=== PATIENT | male | born 1960 | race Caucasian/White ===

== ENCOUNTER → 2017-05-24 14:44 | Outpatient (CLI) | payer BC, SELFPAY ==
[2017-05-24 17:58] LABS: Absolute Lymphocyte Count 1.77 X10^3/ul (0.83-4.51); Basophil# 0.02 X10^3/uL; Basophil% 0.2 % (0-1); Eosinophil# 0.05 X10^3/uL; Eosinophils% 0.6 % (0-5); Hematocrit 41.7 % (40-54); Hemoglobin 13.8 g/dl (13.0-16.5); Lymphocyte # 1.77 X10^3/ul (4.0); Lymphocyte % 21.1 % (19-41); Mean Corp Hgb Conc 33.1 g/gl (32-36); Mean Corpuscular Hgb 29.4 pg (27.0-32.0); Mean Corpuscular Volume 88.7 fL (80-94); Mean Platelet Vol. 10.9 fl (6.2-12.0); Monocyte# 0.52 X10^3/uL; Monocyte% 6.2 % (0-10); Neutrophil # 6.02 X10^3/uL (2.7-7.7); Neutrophil % 71.8 % (47-70); Platelet Count 192 K/mm3 (150-450); RBC Distribution Width SD 45.5 fl (35.1-43.9); White Blood Count 8.4 K/mm3 (4.4-11.0)
[2017-05-24 18:17] LABS: POSITIVE COUNT NO; POSITIVE DIFFERENTIAL NO; POSITIVE MORPHOLOGY NO
[2017-05-24 18:58] LABS: Anion Gap 10 (5-15); BUN 21 mg/dL (7-18); BUN/Creat Ratio 19.1 RATIO (10-20); Chloride 107 mmol/L (98-107); EST Glomerular Filtration Rate 73 mL/min (>60); Est Glom Filt Rate - Afr Amer 89 mL/min (>60); Free T3 2.6 pg/mL (2.18-3.98); Glucose 88 mg/dL (74-106); Potassium 3.7 mmol/L (3.5-5.1); Sodium Level 141 mmol/L (136-145); Thyroid Stim Hormone (TSH) 1.92 uIU/mL (0.358-3.74)
[2017-06-02 14:07] LABS: 5-HIAA, UR 0.3 mg/L (Undefined); Metanephrine, Ur 30 ug/L (Undefined); Normetanephrines, Ur 55 ug/L (Undefined)
== END ==
PROVIDERS: Family Provider Family Medicine; PCP Family Medicine; Visit Provider Family Medicine
DX: I10 Essential (primary) hypertension (principal)
CPT/HCPCS: 36415; 80048; 82533; 83497; 83835; 84443; 84481; 85025

== ENCOUNTER 2018-02-16 13:08 | Day surgery (SDC) | payer BC, SELFPAY ==
--- NOTE | 2018-02-16 | HERN_PTH ---
PATIENT: MICHAEL CEDEÑO LOC: [facility] [place] U#:[id number] AGE/SX: 57/M ROOM: RE02/16/[address]: Dr. Lokesh Mejia MD : [id number] BED: DIS: 02/16/2018 SPEC #: [id number] RECD: 02/17/18 10:53 STATUS: LAURA RESaqib #: [id number] JANA: 02/16/18 00:[address]: Lokesh Mejia DEPT: SURGICAL PATHOLOGY RECD BY: Dhruv Arevalo ENTERED: 02/17/18 10:53 SP TYPE: Hernia OTHR DR: MD Kashif Corral MD Tissues: HERNIA Procedures: Surgery Specimen Level II HEADER OPERATION: Hernia, incarcerated ventral repair with mesh PRE-OP DIAGNOSIS: Incarcerated ventral hernia TISSUE SUBMITTED: Hernia sac MICROSCOPIC DIAGNOSIS Soft tissue of ventral abdomen, excision: Consistent with hernia sac. AM:alexandra 02/18/18 MICROSCOPIC DESCRIPTION Slides are reviewed. GROSS DESCRIPTION Received in fixative is one container labeled with the patient's name and designated hernia sac. The specimen consists of two irregular fragments of silva-yellow fatty tissue that in aggregate measure 5.5 x 4 x 2 cm. Sections reveal homogenous yellow cut surfaces. No obvious mass lesions are identified. Senior Front End Web Developer sections are submitted in one cassette. / AM:alexandra 02/17/18 TC:5 CPT: 25500
[2018-02-16 13:51] VITALS: BP 133/69; PULSE 80; RESP 16; TEMP 37.2; O2SAT 95; BMI 25.7
--- NOTE | 2018-02-16 14:22 | EKG12_ITS ---
Test Reason : PRE-OP Blood Pressure : / mmHG Vent. Rate : 076 BPM Atrial Rate : 076 BPM P-R Int : 204 ms QRS Dur : 092 ms QT Int : 396 ms P-R-T Axes : 058 028 018 degrees QTc Int : 445 ms Normal sinus rhythm Normal ECG Confirmed by RAIN VERNON, EMILY ([id number]), editor in chief newspaper JON ULLOA ([id number]) on 02/22/2018 3:55:19 PM Referred By: Lokesh Mejia Confirmed By:EMILY RODRIGEZ MD
[2018-02-16 15:05] LABS: Anion Gap 9 (5-15); BUN 13 mg/dL (7-18); BUN/Creat Ratio 17.5 RATIO (10-20); Calcium,Total 8.3 mg/dL (8.5-10.1); Chloride 108 mmol/L (98-107); Creatinine, Serum 0.74 mg/dL (0.70-1.30); EST Glomerular Filtration Rate 115 mL/min (>60); Est Glom Filt Rate - Afr Amer 140 mL/min (>60); Estimated Creatinine Clearance 106.55 ml/min; Glucose 75 mg/dL (74-106); Potassium 3.8 mmol/L (3.5-5.1); Sodium Level 140 mmol/L (136-145)
[2018-02-16 15:11] LABS: Hematocrit 38.2 % (40-54); Hemoglobin 13.1 g/dl (13.0-16.5); Mean Corp Hgb Conc 34.3 g/gl (32-36); Mean Corpuscular Hgb 30.1 pg (27.0-32.0); Mean Corpuscular Volume 87.8 fL (80-94); Mean Platelet Vol. 9.9 fl (6.2-12.0); Platelet Count 230 K/mm3 (150-450); RBC Distribution Width CV 13.2 % (11.6-14.6); RBC Distribution Width SD 42.1 fl (35.1-43.9); Red Blood Count 4.35 M/mm3 (4.6-6.2); Scan Indicated on CBC? Y/N NO; White Blood Count 6.8 K/mm3 (4.4-11.0)
[2018-02-16] MEDS: Cefazolin 2 GM in 0.9% Normal Saline 100 ML IV (16:05)
--- NOTE | 2018-02-16 16:19 | PCM.DC.GS ---
Discharge Diet: Light diet - advance as tolerated - if you have questions about your diet instructions, please talk to you doctor. Discharge Activity: May Not Drive - for 3-5 days or while taking narcotic pain medicine. May shower in (days): 1 Lifting Restrictions: 10 pounds Call your doctor if your incision/area has: Continuous Slow Oozing, Sudden Increased Bleeding, Increased Pain/ Swelling, Increased Redness, Foul Smelling Discharge Call your doctor if you observe: Fever of 101 or Higher Suture Line Care: Avoid Pulling/Pushing, Avoid Pinching/Bending Additional Dressing/Incision Instructions:: Change or remove dressing in 4 days. Leave steri-strips in place for 1 week. Allergies/Adverse Reactions: Allergies No Known Allergies Allergy (Verified 02/16/18 13:12) Medications to take at Discharge Fluticasone 0.05% [Flonase Nasal [place]] 1 spray NASAL BID 02/16/18 Hydrocodone Bitart/Apap 5-325 [[place] 5MG-325MG] 1 tablet PO Q6H PRN PRN 3 Days #10 tablet 02/16/18 linoleic acid-sunflower oil 500 mg-1,000 mg capsule 1,000 mg PO DAILY cap 02/16/18 magnesium oxide 400 mg capsule 400 mg PO DAILY cap 02/16/18 mecobalamin (vitamin B12) 5,000 mcg disintegrating tablet 5,000 mcg PO DAILY tab 02/16/18 pyridoxine (vitamin B6) 500 mg tablet 500 mg PO DAILY 02/16/18 vitamin E 200 unit capsule 200 unit PO DAILY 02/16/18 zinc 50 mg tablet 50 mg PO DAILY 02/16/18 The following prescriptions were given: Hydrocodone Bitart/Apap 5-325 [[place] 5MG-325MG] 1 tablet PO Q6H PRN PRN 3 Days #10 tablet PRN Reason: Pain Primary Care Physician: Kashif Byrd MD [Primary Care Provider] - Test Results: Test results from this visit will be discussed in further detail at your follow-up appointment, if applicable. Please Follow Up With: Lokesh Mejia MD - [phone] When: Call to make an appointment to be seen in about 10 days.
[2018-02-16] MEDS: Bupivacaine Mpf 0.5% 30 ML VIAL (16:50)
--- NOTE | 2018-02-16 17:01 | OP.PCM_ITS ---
Problem List (1) Incarcerated ventral hernia Status: Acute Report of Operation Date of Procedure: 02/16/18 Pre-Operative Diagnosis: Incarcerated supraumbilical ventral hernia Post-Operative Diagnosis: Same Surgery/Procedure Performed:: Incarcerated supraumbilical ventral herniorrhaphy with 4 cm ventral-X mesh Description of Surgical Findings:: Timeout and informed consent was obtained. 57-year-old gent was taken down from placement table underwent general endotracheal intubation anesthesia. Ancef 2 g given intraoperatively. The abdomen was sterilely prepped and draped. 0.5% Marcaine was used as local anesthetic. Throughout the procedure total 30 cc was used. A transverse incision was made superior to the umbilicus. Sharp dissection carried down through the subtenons tissue. The incarcerated hernia was identified. Carefully sharply and bluntly the sac was opened there was preperitoneal fat within. I carefully dissected that free electrocautery was used for hemostasis. Upon inspection then the defect appeared to be a linea alba defect. I then utilized a 4 cm ventral X mesh inserted that. I secured the tails with interrupted 0 Nurolon. The defect measured approximately 1.5 cm in diameter. The fascia was then approximated transversely with simple sutures of 0 Nurolon. Good approximation was achieved. The fascia and subcu tissue were anesthetized with 0.5% Marcaine. The skin edges were approximated running septic or 4 Monocryl. Cottonball was inserted in the umbilicus. Steri-Strips Telfa OpSite dressings applied. Sponge and instrument and needle counts were reported the surgeon to be correct. Specimen concludes hernia sac and contents. Drains none. Blood loss minimal. He was taken to the recovery room in satisfactory condition no apparent c omplication. Lokesh Mejia M.D., F.A.C.S. Type of Anesthesia:: General Anesthesiologist: Yolanda Godoy
[2018-02-16 17:10] VITALS: BP 117/81; BP 133/69; PULSE 85; RESP 16; TEMP 37; O2SAT 96
[2018-02-16 17:30] VITALS: BP 115/67; BP 133/69; PULSE 82; RESP 16; O2SAT 94
[2018-02-16 17:45] VITALS: BP 108/69; BP 133/69; PULSE 72; RESP 16; O2SAT 94
[2018-02-16 18:00] VITALS: BP 104/71; BP 133/69; PULSE 68; RESP 16; TEMP 36.8; O2SAT 95
[2018-02-16 19:50] VITALS: BP 125/80; BP 133/69; PULSE 79; RESP 16; TEMP 37.3; O2SAT 93
--- OUTSIDE RECORDS SUMMARY | 2018-04-13 22:34 | XMS RPT_ITS ---
:1960 Author Organization OHIP Support Name Relationship Address Phone GALA THUAN Unavailable [address] + [place] [address] YING CEDEÑO Unavailable . + [place] [address] [facility] Unavailable [address] + [place] [address] THUAN CEDEÑO Unavailable [address] + [place] [address] YING CEDEÑO Unavailable . + [place] [address] [facility] Unavailable [address] + [place] [address] THUAN CEDEÑO Unavailable [address] + [place] [address] YING CEDEÑO Unavailable . + [place] [address] [facility] Unavailable [address] + [place] [address] MEL PRIDE Unavailable / + [place] [address] THUAN CEDEÑO Unavailable [address] + [place] [address] [facility] Unavailable [address] + [place] [address] THUAN CEDEÑO Unavailable [address] + [place] [address] YING CEDEÑO Unavailable . + [place] [address] [facility] Unavailable [address] + [place] [address] MEL PRIDE Unavailable / + [place] [address] THUAN CEDEÑO Unavailable [address] + [place] [address] [facility] Unavailable [address] + [place] [address] Care Team Providers Name Role Phone Kashif Byrd Attending Unavailable Carson, Kashif Referring Unavailable Carson, Kashif Primary Care Unavailable Bang MEDINA, Alisa Attending Unavailable Carson, Kashif Referring Unavailable Josefina Torres Attending Unavailable CebulLokesh Attending Unavailable CebulLokesh Referring Unavailable Carson, Kashif Primary Care Unavailable Bang MEDINA, Alisa Attending Unavailable Kashif Byrd Referring Unavailable Martin Rodrigez Attending Unavailable Ceromy, Lokesh Referring Unavailable PROBLEMS PROBLEMS DATE TYPE CONDITION / CODE ATTENDING STATUS SOURCE 02/16/2018 Unknown G89.18 - Other acute Lokesh Mejia Active [place] post[facility]cedural pain [facility] / G89.18(ICD-10) Hospital Repository 02/28/2018 Unknown Z01.810 - Encounter Martin Rodrigez Active [place] for preprocedural [facility] examination / Repository Z01.810(ICD-10) 02/16/2018 Unknown K42.0 - Umbilical Rubia Cuenca PA-C hernia with Alisa [facility] obstruction, without Hospital gangrene / Repository K42.0(ICD-10) PROCEDURES PROCEDURES No Procedure Records FoundRESULTS RESULTS SURGERY VISIT REPORT Observed: 02/24/2018 Status: F Source: [place] 1:14 PM [facility] REPOSITORY [facility] [address] [place] [address]. [address] [place] [address] OFFICE VISIT Date of Service: 02/24/18 MR#: [id number] Acct: [id number] Name: MICHAEL CEDEÑO Rep #: [id number] : 1960 Provider: Alisa Cuenca PA-C Age/Sex: 57/M Location: [facility] Status: Signed Intake Intake Visit Reasons: PO Incarcerated Umbilical Hernia 02/16 Chief Complaint: poss umbilical hernia Tax Compliance Officer Required: No Is patient in pain?: No Allergies No Known Allergies Allergy (Verified 02/16/18 13:12) Medications Fluticasone 0.05% [Flonase Nasal Hooks] 1 spray NASAL BID 02/16/18 [History Confirmed 02/16/18] linoleic acid-sunflower oil 500 mg-1,000 mg capsule 1,000 mg PO DAILY cap 02/16/18 [History Confirmed 02/16/18] magnesium oxide 400 mg capsule 400 mg PO DAILY cap 02/16/18 [History Confirmed 02/16/18] mecobalamin (vitamin B12) 5,000 mcg disintegrating tablet 5,000 mcg PO DAILY tab 02/16/18 [History Confirmed 02/16/18] pyridoxine (vitamin B6) 500 mg tablet 500 mg PO DAILY 02/16/18 [History Confirmed 02/16/18] vitamin E 200 unit capsule 200 unit PO DAILY 02/16/18 [History Confirmed 02/16/18] zinc 50 mg tablet 50 mg PO DAILY 02/16/18 [History Confirmed 02/16/18] Subjective Details: Patient is a 57 y/o male I am following for incarcerated supraumbilical ventral hernia. Dr. Mejia performed an open supraumbilical hernia repair with mesh on 02/16/18. Patient tolerated the procedure well. He notes incisional discomfort and muscle soreness. He denies nausea, vomiting, fever. Appetite has returned to normal. Bowel habits have returned to normal. Objective Details: Abdomen- incision c/d/i. No erythema or infection noted. Top bandage was removed. Small amount of ecchymosis noted. Assessment AND Plan Problems 1. Incarcerated ventral hernia K43.6 Plan - Recommend no lifting greater than 20 pounds for 6 weeks - Follow-up as needed - RTW letter written to return half day on the or . Or return full duty without restrictions on 03/07. Coding Level of Care Code Global Post Op Diagnoses Incarcerated ventral hernia K43.6 02/24/18 1314 <Electronically signed by Alisa Cuenca PA-C> Date Alisa Cuenca PA-C Cosigner Signature: Date (if applicable) CC: Kashif Byrd MD 12 LEAD ELECTROCARDIOGRAM Observed: 02/22/2018 Status: F Source: [place] 3:55 PM [facility] Cardiovascular Services [address] [place] [address] 12 Lead EKG 02/16/18 1432 MR#: [id number] Acct: [id number] Name: MICHAEL CEDEÑO Rep #: [id number] : 1960 57 From: Martin Rodrigez MD Attending Dr: Lokesh Mejia MD Status: DEP [facility] Ordering Dr: Troy León MD Date: 02/16/18 Location: [facility] Sex: M C Admitted: Test Reason : PRE-OP Blood Pressure : / mmHG Vent. Rate : 076 BPM Atrial Rate : 076 BPM P-R Int : 204 ms QRS Dur : 092 ms QT Int : 396 ms P-R-T Axes : 058 028 018 degrees QTc Int : 445 ms Normal sinus rhythm Normal ECG Confirmed by RAIN VERNON, MARTIN ([id number]), video tape editor JON ULLOA ([id number]) on 02/22/2018 3:55:19 PM Referred By: Lokesh Mejia Confirmed By:MARTIN RODRIGEZ MD 02/22/18 1555 Date Martin Rodrigez MD CC: Troy León MD; Kashif Byrd MD; Lokesh Mejia MD Signed DISCHARGE INSTRUCTION Observed: 02/17/2018 Status: F Source: [place] 2:33 PM [facility] REPOSITORY [facility] Medical Records Department [address] [place] [address] Instructions for Home/Discharge Instructions 02/16/18 1619 MR#: [id number] Acct: [id number] Name: MICHAEL CEDEÑO Rep #: [id number] : 1960 57 From: Lokesh Mejia MD PCP: Kashif Byrd MD Status: DEP [facility] Discharge Diet: Light diet - advance as tolerated - if you have questions about your diet instructions, please talk to you doctor. Discharge Activity: May Not Drive - for 3-5 days or while taking narcotic pain medicine. May shower in (days): 1 Lifting Restrictions: 10 pounds Call your doctor if your incision/area has: Continuous Slow Oozing, Sudden Increased Bleeding, Increased Pain/ Swelling, Increased Redness, Foul Smelling Discharge Call your doctor if you observe: Fever of 101 or Higher Suture Line Care: Avoid Pulling/Pushing, Avoid Pinching/Bending Additional Dressing/Incision Instructions:: Change or remove dressing in 4 days. Leave steri-strips in place for 1 week. Allergies/Adverse Reactions: Allergies No Known Allergies Allergy (Verified 02/16/18 13:12) Medications to take at Discharge Fluticasone 0.05% [Flonase Nasal Hooks] 1 spray NASAL BID 02/16/18 Hydrocodone Bitart/Apap 5-325 [[place] 5MG-325MG] 1 tablet PO Q6H PRN PRN 3 Days #10 tablet 02/16/18 linoleic acid-sunflower oil 500 mg-1,000 mg capsule 1,000 mg PO DAILY cap 02/16/18 magnesium oxide 400 mg capsule 400 mg PO DAILY cap 02/16/18 mecobalamin (vitamin B12) 5,000 mcg disintegrating tablet 5,000 mcg PO DAILY tab 02/16/18 pyridoxine (vitamin B6) 500 mg tablet 500 mg PO DAILY 02/16/18 vitamin E 200 unit capsule 200 unit PO DAILY 02/16/18 zinc 50 mg tablet 50 mg PO DAILY 02/16/18 The following prescriptions were given: Hydrocodone Bitart/Apap 5-325 [[place] 5MG-325MG] 1 tablet PO Q6H PRN PRN 3 Days #10 tablet PRN Reason: Pain Primary Care Physician: Kashif Byrd MD [Primary Care Provider] - Test Results: Test results from this visit will be discussed in further detail at your follow-up appointment, if applicable. Please Follow Up With: Lokesh Mejia MD - [phone] When: Call to make an appointment to be seen in about 10 days. 02/17/18 1710 <Electronically signed by Lokesh Mejia MD> Date Lokesh Mejia MD CC: Kashif Byrd MD OPERATIVE REPORT Observed: 02/17/2018 Status: F Source: [place] 2:33 PM [facility] REPOSITORY [facility] Medical Records Department [address] [place] [address] Operative Report 02/16/18 1657 MR#: [id number] Acct: [id number] Name: MICHAEL CEDEÑO Rep #: [id number] : 1960 57 From: Lokesh Mejia MD PCP: Kashif Byrd MD Status: DEP [facility] Y Location: [facility] Problem List (1) Incarcerated ventral hernia Status: Acute Report of Operation Date of Procedure: 02/16/18 Pre-Operative Diagnosis: Incarcerated supraumbilical ventral hernia Post-Operative Diagnosis: Same Surgery/Procedure Performed:: Incarcerated supraumbilical ventral herniorrhaphy with 4 cm ventral-X mesh Description of Surgical Findings:: Timeout and informed consent was obtained. 57-year-old gent was taken down from placement table underwent general endotracheal intubation anesthesia. Ancef 2 g given intraoperatively. The abdomen was sterilely prepped and draped. 0.5% Marcaine was used as local anesthetic. Throughout the procedure total 30 cc was used. A transverse incision was made superior to the umbilicus. Sharp dissection carried down through the subtenons tissue. The incarcerated hernia was identified. Carefully sharply and bluntly the sac was opened there was preperitoneal fat within. I carefully dissected that free electrocautery was used for hemostasis. Upon inspection then the defect appeared to be a linea alba defect. I then utilized a 4 cm ventral X mesh inserted that. I secured the tails with interrupted 0 Nurolon. The defect measured approximately 1.5 cm in diameter. The fascia was then approximated transversely with simple sutures of 0 Nurolon. Good approximation was achieved. The fascia and subcu tissue were anesthetized with 0.5% Marcaine. The skin edges were approximated running septic or 4 Monocryl. Cottonball was inserted in the umbilicus. Steri-Strips Telfa OpSite dressings applied. Sponge and instrument and needle counts were reported the surgeon to be correct. Specimen concludes hernia sac and contents. Drains none. Blood loss minimal. He was taken to the recovery room in satisfactory condition no apparent complication. Lokesh Mejia M.D., F.A.C.S. Type of Anesthesia:: General Anesthesiologist: Yolanda Godoy 02/17/18 1433 <Electronically signed by Lokesh Mejia MD> Date Lokesh Mejia MD CC: Kashif Byrd MD; Lokesh Mejia MD Signed SURGERY VISIT REPORT Observed: 02/16/2018 Status: F Source: [place] 2:55 PM [facility] REPOSITORY [facility] [address] [place] [address] [address] [place] [address] OFFICE VISIT Date of Service: 02/16/18 MR#: [id number] Acct: [id number] Name: MICHAEL CEDEÑO Rep #: [id number] : 1960 Provider: Alisa Cuenca PA-C Age/Sex: 57/M Location: [facility] Status: Signed with Addenda ADDENDUM by Alisa Cuenca PA-C on 02/16/18 at 1455 Addendum entered and electronically signed by Alisa Cuenca PA-C 02/16/18 14:55: Correction on diagnosis. This will be an open ventral hernia repair with possible mesh. Diagnosis incarcerated ventral hernia. Intake Allergies No Known Allergies Allergy (Verified 02/16/18 13:12) Medications Fluticasone 0.05% [Flonase Nasal Hooks] 1 spray NASAL BID 02/16/18 [History Confirmed 02/16/18] linoleic acid-sunflower oil 500 mg-1,000 mg capsule 1,000 mg PO DAILY cap 02/16/18 [History Confirmed 02/16/18] magnesium oxide 400 mg capsule 400 mg PO DAILY cap 02/16/18 [History Confirmed 02/16/18] mecobalamin (vitamin B12) 5,000 mcg disintegrating tablet 5,000 mcg PO DAILY tab 02/16/18 [History Confirmed 02/16/18] pyridoxine (vitamin B6) 500 mg tablet 500 mg PO DAILY 02/16/18 [History Confirmed 02/16/18] vitamin E 200 unit capsule 200 unit PO DAILY 02/16/18 [History Confirmed 02/16/18] zinc 50 mg tablet 50 mg PO DAILY 02/16/18 [History Confirmed 02/16/18] Assessment AND Plan Problems 1. Incarcerated umbilical hernia K42.0 Plan - ADAM Bernard Dr. has also evaluated this patient. Dr. Mejia will plan to perform an open umbilical hernia repair with possible mesh. Procedure details, risks and benefits have been explained. Patient has had the opportunity to ask and have questions answered. Patient verbally understands and agrees with the plan. We will proceed with hernia repair later today. PAtient will follow-up 7-10 days after surgery. 02/16/18 1455 <Electronically signed by Alisa Cuenca PA-C> Date Alisa Cuenca PA-C cc: Kashif Byrd MD * Signed Intake Intake Visit Reasons: incarcerated umbilical--Juli Chief Complaint: poss umbilical hernia Tax Compliance Officer Required: No Is patient in pain?: Yes (burning) Pain scale (1-10): 3 Allergies No Known Allergies Allergy (Verified 02/16/18 13:12) Medications linoleic acid-sunflower oil 500 mg-1,000 mg capsule mg PO cap 02/16/18 [History Confirmed 02/16/18] magnesium oxide 400 mg capsule 400 mg PO DAILY cap 02/16/18 [History Confirmed 02/16/18] mecobalamin (vitamin B12) 5,000 mcg disintegrating tablet mcg PO tab 02/16/18 [History Confirmed 02/16/18] pyridoxine (vitamin B6) 500 mg tablet 500 mg PO DAILY 02/16/18 [History Confirmed 02/16/18] vitamin E 200 unit capsule 200 unit PO DAILY 02/16/18 [History Confirmed 02/16/18] zinc 50 mg tablet 50 mg PO DAILY 02/16/18 [History Confirmed 02/16/18] [facility] Medical History No pertinent past medical history (Acute) Surgical History History of appendectomy (Acute) History of colonoscopy (Acute) History of nasal septoplasty (Acute) History of tracheostomy (Acute) Family History Mother CVA (cerebral vascular accident) Social History Smoking Status: Never smoker HPI HPI HPI: MICHAEL CEDEÑO, is a 57 M who presents to the office today for painful buldge supraumbilical region. Patient stated he has been sick. He had a coughing fit yesterday and noted a lump had formed above the umbilicus. He noted burning pain which radiated into his right lower quadrant. This has been constant pain. He denies nausea, vomiting, fever and diarrhea. He denies weight loss. He denies previous umbilical hernia. He denies previous appendectomy with right lower quadrant incision. He exercises on a regular basis. 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 He denies previous myocardial infarction, stroke, blood clots. He denies previous complications or side effects from anesthesia. ROS General General: No weight change, appetite, fatigue, colon cancer, breast cancer or weakness HEENT HEENT: No difficulty swallowing, eye injury, eye surgery, swollen glands or hoarseness Endo Endocrine: No thyroid disease, diabetes mellitus, thyroid cancer, Hair loss, heat intolerance or cold intolerance Cardio Cardiovascular: No murmur, pacemaker, heart disease, atrial fibrillation, high blood pressure, heart attack, heart stent, palpitations, shortness of breat with exertion or chest pain Resp Respiratory: No shortness of breath, No sleep apnea, No cough, No COPD, No asthma, No emphysema, No wheezing Gastro Gastrointestinal: Yes abdominal pain, No nausea or vomiting, No diarrhea, No constipation, No blood in stool, No acid reflux, No hemorrhoids, No ulcers, No gallbladder problem, No black,tarry stools Gt Hematologic: No blood thinners, No blood disorders, No bleeding, No anemia, No blood clots Neuro Neurologic: No weakness Exam Const General: cooperative, healthy appearing, comfortable, no acute distress HENMT Head: normal to inspection Eyes General: appearance normal, both eyes and all related structures Neck Neck mass: No Resp Effort AND Inspection: normal respiratory effort Auscultation: clear to auscultation bilaterally Cardio Rate: regular rate Rhythm: regular rhythm Heart Sounds: no murmurs GI Inspection: incision (RLQ), normal to inspection Palpation: soft, hernia (incarcerated supraumbilical hernia; non-reducible) Auscultation: normal bowel sounds Skin General: no rashes or lesions noted Neuro General: no focal motor deficits, CN's II-XI intact bilaterally Extrem General: normal to inspection Psych Appearance: grossly normal Affect: normal affect Assessment AND Plan Problems 1. Incarcerated umbilical hernia K42.[address] Mejia has also evaluated this patient. Dr. Mejia will plan to perform an open umbilical hernia repair with possible mesh. Procedure details, risks and benefits have been explained. Patient has had the opportunity to ask and have questions answered. Patient verbally understands and agrees with the plan. We will proceed with hernia repair later today. PAtient will follow-up 7-10 days after surgery. Coding Level of Care Code Off vis,new,level 3 Diagnoses Incarcerated umbilical hernia K42.0 02/16/18 1342 <Electronically signed by Alisa Cuenca PA-C> Date Alisa Cuenca PA-C Cosigner Signature: Date (if applicable) CC: Kashif Byrd MD BASIC METABOLIC Collected: 02/16/2018 Status: F Source: [place] PROFILE (BMP) 2:46 PM [facility] REPOSITORY Order Comment: Comments: pt in ac room 19 TYPE CODE TESTS RESULT OUT OF RANGE REFERENCE UNITS LAB L501.0100 74-106 mg/dL Normal GLU 75 Result Comment: Please note revised GLUCOSE reference range effective 2017. LAB L501.1000 7-18 mg/dL Normal BUN 13 LAB L501.1100 0.70-1.30 mg/dL Normal CREAT,SERUM 0.74 Result Comment: The validity of the calculated GFR AND GFRAA in patients over 70 years has not been determined. Clinical correlation is essential. LAB L501.1110 >60 mL/min Normal EST GFR 115 Result Comment: Non- GFR Calc LAB L501.1115 >60 mL/min Normal EST GFR - AA 140 Result Comment: GFR Calc LAB L501.1255 ml/min Normal Estimated CRCL 106.55 LAB L501.1300 10-20 RATIO BUN/CRE Normal 17.5 LAB L501.2200 8.5-10 mg/dL Low .1 CA 8.3 LAB L501.5300 136-14 mmol/L 5 NA Normal 140 LAB L501.5600 3.5-5. mmol/L 1 K Normal 3.8 LAB L501.5900 98-107 mmol/L High CL 108 LAB L501.6100 21.0-3 mmol/L 2.0 CO2 Normal 23.0 LAB L501.6200 5-15 GAP Normal 9 Performed By: #### L500.2500 #### [facility] [address] [place], [address] CBC-COMPLETE BLOOD CNT Collected: 02/16/2018 Status: F Source: [place] NO DIFF 2:46 PM [facility] REPOSITORY Order Comment: Comments: pt in ac room 19 TYPE CODE TESTS RESULT OUT OF RANGE REFERENCE UNITS LAB L100.1000 4.4-11.0 K/mm3 Normal WBC 6.8 LAB L100.1200 4.6-6.2 M/mm3 Low RBC 4.35 LAB L100.1300 13.0-16.5 g/dl Normal HGB 13.1 LAB L100.1400 40-54 % Low HCT 38.2 LAB L100.1500 80-94 fL Normal MCV 87.8 LAB L100.1600 27.0-32.0 pg Normal MCH 30.1 LAB L100.1700 32-36 g/gl Normal MCHC 34.3 LAB L100.1810 11.6-14.6 % Normal RDW CV 13.2 LAB L100.1820 35.1-43.9 fl Normal RDW SD 42.1 LAB L100.1900 150-450 K/mm3 Normal PLT 230 LAB L100.2000 6.2-12.0 fl Normal MPV 9.9 Performed By: #### L100.0500 #### [facility] [address] [place], [address] HERNIA Observed: 02/16/2018 Status: F Source: [place] 12:00 AM [facility] REPOSITORY Patient: MICHAEL CEDEÑO : 1960 (57/M) Acct Num: [id number] Phys: Roberto VERNON,Lokesh Unit Num: [id number] Loc: [facility] Specimen: [id number] Received: 02/17/18 - 1053 Spec Type: Hernia TISSUES 1 TISSUES: HERNIA GROSS DESCRIPTION Received in fixative is one container labeled with the patient's name and designated hernia sac. The specimen consists of two irregular fragments of silva-yellow fatty tissue that in aggregate measure 5.5 x 4 x 2 cm. Sections reveal homogenous yellow cut surfaces. No obvious mass lesions are identified. Waterworks Chief Engineer sections are submitted in one cassette. / AM: 02/17/18 TC:5 CPT: 30948 HEADER OPERATION: Hernia, incarcerated ventral repair with mesh PRE-OP DIAGNOSIS: Incarcerated ventral hernia TISSUE SUBMITTED: Hernia sac MICROSCOPIC DESCRIPTION Slides are reviewed. MICROSCOPIC DIAGNOSIS Soft tissue of ventral abdomen, excision: Consistent with hernia sac. AM: 02/18/18 Signed Luis [facility] 02/18/18 <signature on file> Performed By: #### PHERN #### [facility] [address] [place], [address] METANEPHRINE FRAC 24 HR Collected: 05/24/2017 Status: F Source: [place] UR 4:17 PM [facility] REPOSITORY Order Comment: Comments: RANDOM URINE TYPE CODE TESTS RESULT OUT OF RANGE REFERENCE UNITS LAB L3600.1400 Undefined ug/L Normal 55 NORMETANEPH, UR LAB L3600.1500 Normal NORMETANEPH, U24 Result Comment: No total volume submitted. Unable to calculate 24 hour result. (Hypertensive) >17 years 11 months: 110 - 1050 LAB L3600.1600 Undefined ug/L METANEPHRINE,UR Normal 30 LAB L3600.1700 METANEPH,U24 Normal Result Comment: No total volume submitted. Unable to calculate 24 hour result. (Hypertensive) >17 years 11 months: 35 - 460 Performed By: #### L3600.1100, L3600.2500 #### [facility] (refer to report for specific site) refer to report for address and phone number [phone] 24 HR UR Collected: 05/24/2017 Status: F Source: [place] 4:17 PM [facility] REPOSITORY Order Comment: Comments: RANDOM URINE TYPE CODE TESTS RESULT OUT OF RANGE REFERENCE UNITS LAB L3600.2600 Undefined mg/L Normal 5-HIAA,UR 0.3 LAB L3600.2700 Normal 5-HIAA,U24 Result Comment: No total volume submitted. Unable to calculate 24 hour result. This test was developed and its performance characteristics determined by [employer]. It has not been cleared or approved by the Food and Drug Administration. Performed at: [address] [id number] Leaf Size Picker: Hussain Loya MD, Phone: [phone] Performed By: #### L3600.1100, L3600.2500 #### [facility] (refer to report for specific site) refer to report for address and phone number CBC W/DIFF, AUTOMATED Collected: 05/24/2017 Status: F Source: [place] 2:47 PM [facility] REPOSITORY TYPE CODE TESTS RESULT OUT OF RANGE REFERENCE UNITS LAB L100.1000 4.4-11.0 K/mm3 Normal WBC 8.4 LAB L100.1200 4.6-6.2 M/mm3 Normal RBC 4.70 LAB L100.1300 13.0-16.5 g/dl Normal HGB 13.8 LAB L100.1400 40-54 % Normal HCT 41.7 LAB L100.1500 80-94 fL Normal MCV 88.7 LAB L100.1600 27.0-32.0 pg Normal MCH 29.4 LAB L100.1700 32-36 g/gl Normal MCHC 33.1 LAB L100.1810 11.6-14.6 % Normal RDW CV 14.0 LAB L100.1820 35.1-43.9 fl High RDW SD 45.5 LAB L100.1900 150-450 K/mm3 Normal PLT 192 LAB L100.2000 6.2-12.0 fl Normal MPV 10.9 LAB L100.2100 47-70 % High NEUT% 71.8 LAB L100.2200 19-41 % Normal LY% 21.1 LAB L100.2300 0-10 % Normal MONO% 6.2 LAB L100.2400 0-5 % Normal EO% 0.6 LAB L100.2500 0-1 % Normal BASO% 0.2 LAB L100.2550 0.0-0.9 % Normal IM GRAN % 0.100 Result Comment: IG% - Immature Granulocytes (promyelocytes, myelocytes and metamyelocytes) > 1% indicates that a LEFT SHIFT is Present. LAB L100.2620 2.0-7.7 X10 3/uL Normal Absolute Neut 6.0 LAB L100.2720 0.83-4.51 X10 3/ul Normal Absolute Lymph 1.77 Performed By: #### L100.0100 #### [facility] [address] [facility] [place], [place], [address] CORTISOL SERUM Collected: 05/24/2017 Status: F Source: [place] 2:47 PM [facility] REPOSITORY Order Comment: Comments: RANDOM TYPE CODE TESTS RESULT OUT OF RANGE REFERENCE UNITS LAB L509.6000 3.09-22.40 ug/dL Normal CORTISOL 15.90 Result Comment: Adult (AM) 4.30 - 22.40 ug/dL Adult (PM) 3.09 - 16.66 ug/dL Performed By: #### L509.6000 #### [facility] [address] [place], [place], [address] BASIC METABOLIC Collected: 05/24/2017 Status: F Source: [place] PROFILE (BMP) 2:47 PM [facility] REPOSITORY Order Comment: Comments: RANDOM TYPE CODE TESTS RESULT OUT OF RANGE REFERENCE UNITS LAB L501.0100 74-106 mg/dL Normal GLU 88 Result Comment: Please note revised GLUCOSE reference range effective 2017. LAB L501.1000 7-18 mg/dL High BUN 21 LAB L501.1100 0.70-1.30 mg/dL Normal CREAT,SERUM 1.10 Result Comment: The validity of the calculated GFR AND GFRAA in patients over 70 years has not been determined. Clinical correlation is essential. LAB L501.1110 >60 mL/min Normal EST GFR 73 Result Comment: Non- GFR Calc LAB L501.1115 >60 mL/min Normal EST GFR - AA 89 Result Comment: GFR Calc LAB L501.1300 10-20 RATIO Normal BUN/CRE 19.1 LAB L501.2200 8.5-10.1 mg/dL CA Normal 9.0 LAB L501.5300 136-145 mmol/L NA Normal 141 LAB L501.5600 3.5-5.1 mmol/L K Normal 3.7 LAB L501.5900 98-107 mmol/L CL Normal 107 LAB L501.6100 21.0-32.0 mmol/L Normal CO2 24.0 LAB L501.6200 5-15 Normal GAP 10 Performed By: #### L500.2500, L501.03319, L501.9520 #### [facility] [address] [place], [place], [id number] FREE T3 Collected: 05/24/2017 Status: F Source: [place] 2:47 PM [facility] REPOSITORY Order Comment: Comments: RANDOM TYPE CODE TESTS RESULT OUT OF RANGE REFERENCE UNITS LAB L501.75389 2.18-3.98 pg/mL Normal FREE T3 2.6 Performed By: #### L500.2500, L501.54631, L501.9520 #### [facility] [address] [place], [place], [id number] THYROID STIM HORMONE Collected: 05/24/2017 Status: F Source: [place] (TSH) 2:47 PM [facility] REPOSITORY Order Comment: Comments: RANDOM TYPE CODE TESTS RESULT OUT OF RANGE REFERENCE UNITS LAB L501.9520 0.358-3.74 uIU/mL Normal TSH 1.92 Performed By: #### L500.2500, L501.84487, L501.9520 #### [facility] [address] [place], [place], [address] ALLERGIES ALLERGIES DATE TYPE / CODE NAME / CODE REACTION SEVERITY SOURCE 02/16/2018 Drug No Known Unknown [facility] Allergy/4160 Allergies/F00 Hospital 62807(SNOMED [id number](RXNOR Repository CT) M) ENCOUNTERS ENCOUNTERS ADMIT/DISCHARGE ACCOUNT ADMITTING ENCOUNTER LOCATION SOURCE NUMBER CLASS 02/24/2018/ [id number] Ambulatory BMSBuilding:B [place] 8 0 [facility] Repository 02/16/2018/ [id number] Ambulatory [place] 8 3 [facility] ing:SDCRoom: Repository AC19 02/16/2018 [id number] Ambulatory BMSBuilding:W [place] 9 [facility] Repository 02/16/2018 [id number] Ambulatory BMSBuilding:B [place] 0 [facility] Repository 02/16/2018/ [id number] Ambulatory BMSBuilding:B [place] 8 7 [facility] Repository 05/24/2017 [id number] Ambulatory [place] 2 [facility] ing:MFPLAB Repository PAYERS PAYERS ENCOUNTER GUARANTOR PAYER SUBSCRIBER SOURCE 02/24/2018 MICHAEL B Primary MASAE [place] [id number] Insurance:ANTHEMPolic ELLSWORTHDOB: [facility] y [place]: [id number] [id number] Repository [address]Xog: 330) Date:8817-20-75PI [phone] () [address] [place] [address]AM: 02/24/2018 Secondary NOT GIVENUNK [place] Insurance:SELF PAY [facility] Number: Effective Repository Date:2018-02-24 02/16/2018 MICHAEL B Primary MASAE [place] [id number] Insurance:ANTHEMPolic ELLSWORTHDOB: [facility] y Number: [id number] [id number] Repository [address]Lyd: 330) Date:0545-77-58FW [phone] () [id number] [place] [address]48[address]FS: 02/16/2018 Secondary NOT GIVENUNK [place] Insurance:SELF PAY [facility] Number: Effective Repository Date:2018-02-16 02/16/2018 MICHAEL B Primary MASAE [place] [id number] Insurance:ANTHEMPolic ELLSWORTHDOB: [facility]IER y Number: [id number] [id number] Repository [address]32[address]Pps: (330) Date:2388-94-83XB [phone] () [place] [address]AH: 02/16/2018 Secondary NOT GIVENUNK [place] Insurance:SELF PAY [facility] Number: Effective Repository Date:2018-02-16 02/16/2018 MICHAEL B Primary MASAE [place] [id number] Insurance:ANTHEMPolic ELLSWORTHDOB: Bhanu BO y Number: [id number], [place] [id number] Repository [address]Qqv: (330) Date:9184-04-90YC [phone] () [place] [address]GP: 02/16/2018 Secondary NOT GIVENUNK [place] Insurance:SELF PAY [facility] Number: Effective Repository Date:2018-02-16 02/16/2018 MICHAEL B Primary MASAE [place] [id number] Insurance:ANTHEMPolic ELLSWORTHDOB: Bhanu BO y Number: [id number], [place] [id number] Repository [address]Prb: (330) Date:9579-86-48AC [phone] () [place] [address]AP: 02/16/2018 Secondary NOT GIVENUNK [place] Insurance:SELF PAY [facility] Number: Effective Repository Date:2018-02-16 05/24/2017 Michael B Primary MASAE [place] [id number] Insurance:ANTHEMPolic ELLSWORTHDOB: Bhanu Bo y Number: [id number], [place] [id number] Repository [address]Sly: (330) Date:8245-33-09WY [phone] () [place] [address]QW: 05/24/2017 Secondary NOT GIVENUNK [place] Insurance[facility]LF [facility] Effective Repository Date:2017-05-24
== END 2018-02-16 19:51 | disposition home or self-care (01) ==
LOC: SDC 13:10 → AC 13:14
PROVIDERS: Family Provider Family Medicine; PCP Family Medicine; Referring Provider Surgery; Visit Provider Surgery
PROC: (CPT 49561; principal; 2018-02-16 07:55)
DX: K43.6 Other and unspecified ventral hernia with obstruction, without gangrene (principal)
CPT/HCPCS: 00832; 49561; 49568; 80048; 85027; 88302; 93005; J7120; C1781; J2405

== ENCOUNTER → 2018-06-16 07:23 | Outpatient (CLI) | payer BC, SELFPAY ==
[2018-06-16 10:11] LABS: Absolute Lymphocyte Count 1.92 X10^3/ul (0.83-4.51); Absolute Neutrophil Count 3.1 X10^3/uL (2.0-7.7); Basophil# 0.03 X10^3/uL; Basophil% 0.5 % (0-1); Eosinophil# 0.06 X10^3/uL; Eosinophils% 1.1 % (0-5); Hematocrit 43.6 % (40-54); Hemoglobin 14.7 g/dl (13.0-16.5); Lymphocyte # 1.92 X10^3/ul (4.0); Lymphocyte % 34.9 % (19-41); Mean Corp Hgb Conc 33.7 g/gl (32-36); Mean Corpuscular Hgb 29.8 pg (27.0-32.0); Mean Corpuscular Volume 88.3 fL (80-94); Mean Platelet Vol. 10.4 fl (6.2-12.0); Monocyte# 0.39 X10^3/uL; Monocyte% 7.1 % (0-10); Neutrophil % 56.4 % (47-70); Platelet Count 205 K/mm3 (150-450); RBC Distribution Width CV 13.7 % (11.6-14.6); RBC Distribution Width SD 44.2 fl (35.1-43.9); Red Blood Count 4.94 M/mm3 (4.6-6.2); White Blood Count 5.5 K/mm3 (4.4-11.0)
[2018-06-16 10:17] LABS: POSITIVE COUNT NO; POSITIVE DIFFERENTIAL NO; POSITIVE MORPHOLOGY NO
[2018-06-16 10:30] LABS: Vitamin B12 682 pg/mL (211-911)
[2018-06-16 10:37] LABS: Microalbumin,Random Urine < 5.0 mg/L (NO RANGE EST.)
[2018-06-16 11:10] LABS: ALB/GLOB Ratio 1.3 RATIO (0.9-2.4); AST(SGOT) 62 U/L (15-37); Alanine Aminotransfer ALT/SGPT 33 U/L (16-61); Albumin, Serum 4.1 g/dL (3.2-5.0); Alkaline Phosphatase 76 U/L (45-117); Anion Gap 6 (5-15); BUN 13 mg/dL (7-18); BUN/Creat Ratio 11.7 RATIO (10-20); Calcium,Total 8.8 mg/dL (8.5-10.1); Chloride 105 mmol/L (98-107); Creatinine, Serum 1.11 mg/dL (0.70-1.30); EST Glomerular Filtration Rate 72 mL/min (>60); Est Glom Filt Rate - Afr Amer 88 mL/min (>60); Globulin 3.2 g/dL (2.2-4.2); Glucose 91 mg/dL (74-106); Potassium 3.8 mmol/L (3.5-5.1); Protein, Total 7.3 g/dL (6.4-8.2); Sodium Level 138 mmol/L (136-145); Thyroid Stim Hormone (TSH) 1.76 uIU/mL (0.358-3.74)
[2018-06-18 19:08] LABS: Testosterone, Free 10.33 ng/dL (5.00-21.00)
[2018-06-20 12:00] LABS: Testosterone, % Free 1.91 % (1.50-4.20); Testosterone, Total 541 ng/dL (264-916)
== END ==
PROVIDERS: Family Provider Family Medicine; PCP Family Medicine; Referring Provider Family Medicine; Visit Provider Family Medicine
DX: I10 Essential (primary) hypertension (principal); R53.83 Other fatigue
CPT/HCPCS: 36415; 80053; 82043; 82570; 82607; 82746; 84402; 84403; 84443; 85025

== ENCOUNTER → 2018-12-13 | Outpatient (CLI) | payer BC, SELFPAY ==
[2018-12-13 09:27] LABS: Lyme Ab Screen Interpretation REF LAB
[2018-12-13 10:05] LABS: Absolute Neutrophil Count 5.4 X10^3/uL (2.0-7.7); Basophil# 0.04 X10^3/uL; Basophil% 0.5 % (0-1); Eosinophil# 0.04 X10^3/uL; Eosinophils% 0.5 % (0-5); Hematocrit 43.6 % (40-54); Hemoglobin 14.4 g/dL (13.0-16.5); Lymphocyte % 17.2 % (19-41); Mean Corpuscular Hgb 29.4 pg (27.0-32.0); Mean Corpuscular Volume 89.2 fL (80-94); Mean Platelet Vol. 10.4 fl (6.2-12.0); Monocyte# 1.24 X10^3/uL; Monocyte% 15.3 % (0-10); NRBC Flagged by Analyzer 0 % (0-5); Neutrophil # 5.38 X10^3/uL (2.7-7.7); Neutrophil % 66.3 % (47-70); Platelet Count 184 K/mm3 (150-450); RBC Distribution Width CV 12.9 % (11.6-14.6); RBC Distribution Width SD 42.5 fl (35.1-43.9); Red Blood Count 4.89 M/mm3 (4.6-6.2); White Blood Count 8.1 K/mm3 (4.4-11.0)
[2018-12-13 10:36] LABS: ALB/GLOB Ratio 0.9 RATIO (0.9-2.4); AST(SGOT) 52 U/L (15-37); Alanine Aminotransfer ALT/SGPT 32 U/L (16-61); Albumin, Serum 3.8 g/dL (3.2-5.0); Alkaline Phosphatase 77 U/L (45-117); Anion Gap 7 (5-15); BUN 15 mg/dL (7-18); BUN/Creat Ratio 12.3 RATIO (10-20); Calcium,Total 9.3 mg/dL (8.5-10.1); Chloride 105 mmol/L (98-107); Cholesterol 178 mg/dL (200); Creatinine, Serum 1.22 mg/dL (0.70-1.30); EST Glomerular Filtration Rate 65 mL/min (>60); Est Glom Filt Rate - Afr Amer 78 mL/min (>60); Globulin 4.4 g/dL (2.2-4.2); Glucose 95 mg/dL (74-106); High Density Lipoprotein 54 mg/dL; Potassium 4.4 mmol/L (3.5-5.1); Protein, Total 8.2 g/dL (6.4-8.2); Sodium Level 141 mmol/L (136-145)
[2018-12-15 15:19] LABS: Lyme Scn Total Ab w/Rflx <0.91 ISR (0.00-0.90)
== END | disposition home or self-care (01) ==
LOC: MFPLAB 09:26
PROVIDERS: Family Provider Family Medicine; PCP Family Medicine; Referring Provider Family Medicine; Visit Provider Family Medicine
DX: Z00.00 Encounter for general adult medical examination without abnormal findings (principal); R50.9 Fever, unspecified
CPT/HCPCS: 36415; 80053; 82465; 83718; 85025; 86140; 86618

== ENCOUNTER 2019-11-17 16:45 | Emergency (ER) | payer BC, SELFPAY ==
[2019-11-17 16:46] VITALS: BP 147/85; PULSE 78; RESP 18; TEMP 36.5; O2SAT 98; BMI 26.1
--- NOTE | 2019-11-17 17:07 | CT_ITS ---
STUDY: CT BRAIN WITHOUT CONTRAST REASON FOR EXAM: Male, 59 years old. Headache hypertension for 2 days RADIATION DOSAGE (If Supplied By Facility): CTDIvol = ( 60.81 ) mGy, DLP = ( 1067.08 ) mGycm TECHNIQUE: Transaxial CT imaging of the brain was performed without administration of intravenous contrast material. Individualized dose optimization techniques were used for this CT. COMPARISON: No relevant priors. FINDINGS: Brain parenchyma is without focal lesions, mass effect, acute intracranial hemorrhage, extra parenchymal fluid collections, hydrocephalus or herniation. The skull is intact. CT/Brain/Head without Contrast IMPRESSION: 1. Normal CT brain. Electronically Signed: Ilene Peter, at 17:59 EDT Tel , Service support ,
--- NOTE | 2019-11-17 17:07 | EKG12_ITS ---
Test Reason : HIGH BP Blood Pressure : / mmHG Vent. Rate : 065 BPM Atrial Rate : 065 BPM P-R Int : 204 ms QRS Dur : 096 ms QT Int : 404 ms P-R-T Axes : 050 012 003 degrees QTc Int : 420 ms Normal sinus rhythm with sinus arrhythmia Normal ECG Confirmed by RAIN VERNON, EMILY ([id number]), editor in chief newspaper JOE GODFREY ([id number]) on 11/21/2019 7:54:13 AM Referred By: JUAN PABLO Confirmed By:EMILY RODRIGEZ MD
--- NOTE | 2019-11-17 17:09 | ED.VIS.GEN ---
History of Present Illness Informant: Patient, Significant Other Onset: Yesterday Context: Gradual Onset Timing: Continuous Quality: sharp Location: head Current Severity: Moderate Maximum Severity: Severe Worsened by: nothing Relieved by: nothing Associated Symptoms: elevated blood pressure Narrative: 59-year-old male who denies any significant past medical history presents to the emergency department with elevated blood pressure and a headache. Patient states that he has been having right-sided neck pain which is chronic for him and he states normally when he does have worsening neck pain his blood pressure is somewhat elevated but then he goes to the chiropractor to have his neck adjusted which improves his pain and then lowers his blood pressure. He states he has been there yesterday and today for his neck pain but it has not helped lower his blood pressure. He is also having right-sided headache specifically behind his right eye that started today. He denies head trauma. He denies any blurry vision double vision loss of vision, he denies any difficulties with speech or ambulation, he denies weakness or paresthesias, he is not lightheaded or dizzy, no nausea or vomiting. He denies chest pain or shortness of breath. He denies any back pain. He states that he has been checking his blood pressure and it has been running 160 systolic and is normal systolic blood pressure is around 120. He has never been on an antihypertensive. Prior similar symptoms: No Recent Illness/Hospitalization: No <Davy Grant - Last Filed: 11/17/19 17:23> <Kashif Trevino - Last Filed: 11/17/19 18:19> Chief Complaint: Hypertension Past Medical History Prior records reviewed: Yes Past Medical History: - - Essential tremor Surgical History: herniorrhaphy Lives: With Family Smoking Status: Never smoker Alcohol: None Drugs: None <Davy Grant - Last Filed: 11/17/19 17:23> <Kashif Trevino - Last Filed: 11/17/19 18:19> - Allergies and Home Meds Allergies/Adverse Reactions: Allergies No Known Allergies Allergy (Verified 11/17/19 16:49) Primary Care Physician: Kashif Byrd MD [Primary Care Provider] - Review of Systems All systems negative except as indicated General: Denies: Chills, Fever, Malaise, Subjective, Sweats Eyes: Denies: Visual changes - left, Visual changes - right, Visual changes - bilaterally, Blurred vision - left, Blurred vision - right, Blurred Vision - bilaterally, Diplopia ENT: Denies: Bilateral ear pain, Rhinorrhea, Sore throat Cardiovascular: Denies: Chest pain, Palpitations, Heart racing Respiratory: Denies: Dyspnea, Cough, Dyspnea on exertion Gastrointestinal: Denies: Abdominal pain, Nausea, Vomiting, Diarrhea, Constipation, Melena, Hematochezia Genitourinary: Denies: Dysuria, Hematuria, Frequency Musculoskeletal: Reports: Neck pain. Denies: Myalgias, Arthralgias, Back pain, Swelling, Extremity Pain Skin: Denies: Rash, Wounds Neurological: Reports: Headache. Denies: Weakness, Parasthesia, Numbness <Davy Grant - Last Filed: 11/17/19 17:23> Physical Exam Vital Signs/Narrative: Vital Signs Temp Pulse Resp BP Pulse Ox 11/17/19 16:46 97.7 F L 78 18 147/85 H 98 Inital Vital Signs reviewed: Yes General: Well nourished, Well developed, No Acute Distress Head: Normocephalic, Atraumatic Eyes: Perrl, EOMI, - - No nystagmus is noted ENT: Moist mucous membranes, No rhinorrhea Neck: Supple, Nontender Cardiovascular: Regular rate, Regular rhythm, No murmurs Respiratory: No distress, CTA bilaterally, Chest nontender Abdomen: Soft, Nontender, Nondistended, Normal bowel sounds Back: Nontender, Normal Inspection Extremities: Nontender, No edema Skin: Normal color, No rash Neurological: Alert, Oriented x3, Cranial nerves II-XII grossly intact, Normal Strength, Normal Sensation, Normal DTR, - - Normal ajohju-do-luzi and xjgn-fc-qgea testing. No visual field deficit is noted by confrontation Psychological: Normal affect, Normal Mood <Davy Grant - Last Filed: 11/17/19 17:23> Vital Signs/Narrative: Vital Signs Temp Pulse Resp BP Pulse Ox 11/17/19 16:46 97.7 F L 78 18 147/85 H 98 <Kashif Trevino - Last Filed: 11/17/19 18:19> Diagnostic/Tx/Re-eval - Rhythm Strip Rhythm Strip: Sinus Rhythm Rate: 80 Ectopy: None - EKG Initial EKG Interpretation: Sinus Rhythm, No Acute Injury Pattern Prior: Unchanged <KimberlyDavy davila - Last Filed: 11/17/19 17:23> - Medical Decision Making Patient was seen with me. I did a [id number] examination with the patient. Patient presents with elevated blood pressure and headache. Patient states that when he gets this he sees his chiropractor who adjusts his neck and his blood pressure improves. Patient states he saw his chiropractor twice in the last 2 days and had no improvement with this. Patient admits to a mild headache. Patient denies any chest pain or shortness of breath. Patient denies any nausea or vomiting. Vital signs are stable. Patient's blood pressure is only 147/85. Patient is afebrile. Patient is in no acute distress. Oral mucosa is pink and moist. Neck is supple. Trachea is midline. There is no JVD. Heart was regular rate and rhythm. Lungs are clear and equal bilaterally. Abdomen is soft and nontender. Cranial nerves II through XII are intact. There are no focal motor or sensory deficits. EKG shows a normal sinus rhythm with a rate of 65. There are no acute ST or T wave changes. This was unchanged compared to previous EKG dated 02/16/2018. CT scan of the brain was obtained. There is no acute intracranial abnormality. CBC and basic metabolic profile were within normal limits. Troponin was normal. Patient was advised to follow-up with his primary care physician in 5 to 7 days. Patient was instructed to keep a log of his blood pressures and take this with him to his primary care physician. Patient understood and was agreeable with the plan. All questions were answered. <Kashif Trevino - Last Filed: 11/17/19 18:19> ED Disposition <Davy Grant - Last Filed: 11/17/19 17:23> <Kashif Trevino - Last Filed: 11/17/19 18:19> - Plan for ED Patient: Disposition: Home or Assisted Living Diagnosis: Headache, Elevated blood pressure reading Instructions: ED HBP No Tx Referrals: Kashif Byrd MD [Primary Care Provider] - 5-7 Days
[2019-11-17 17:39] LABS: Absolute Lymphocyte Count 2.23 X10^3/uL (0.83-4.51); Absolute Neutrophil Count 4.5 X10^3/uL (2.0-7.7); Basophil# 0.04 X10^3/uL; Basophil% 0.5 % (0-1); Eosinophil# 0.09 X10^3/uL; Eosinophils% 1.2 % (0-5); Hematocrit 43.1 % (40-54); Hemoglobin 14.7 g/dL (13.0-16.5); Lymphocyte # 2.23 X10^3/ul (4.0); Lymphocyte % 29.9 % (19-41); Mean Corp Hgb Conc 34.1 g/dL (32-36); Mean Corpuscular Hgb 30.4 pg (27.0-32.0); Mean Platelet Vol. 10.3 fl (6.2-12.0); Monocyte# 0.62 X10^3/uL; Monocyte% 8.3 % (0-10); NRBC Flagged by Analyzer 0 % (0-5); Neutrophil # 4.47 X10^3/uL (2.7-7.7); Platelet Count 216 K/mm3 (150-450); RBC Distribution Width CV 12.9 % (11.6-14.6); RBC Distribution Width SD 42.3 fl (35.1-43.9); Red Blood Count 4.84 M/mm3 (4.6-6.2); White Blood Count 7.5 K/mm3 (4.4-11.0)
[2019-11-17 17:44] LABS: Anion Gap 8 (5-15); BUN 14 mg/dL (7-18); BUN/Creat Ratio 13.3 RATIO (10-20); Calcium,Total 9.3 mg/dL (8.5-10.1); Chloride 107 mmol/L (98-107); Creatinine, Serum 1.05 mg/dL (0.70-1.30); EST Glomerular Filtration Rate 77 mL/min (>60); Est Glom Filt Rate - Afr Amer 93 mL/min (>60); Estimated Creatinine Clearance 73.29 ml/min; Glucose 87 mg/dL (74-106); Potassium 3.4 mmol/L (3.5-5.1); Sodium Level 142 mmol/L (136-145)
[2019-11-17 18:26] VITALS: BP 119/78; PULSE 71; RESP 20; O2SAT 94
== END 2019-11-17 18:32 | disposition home or self-care (01) ==
PROVIDERS: Emergency Provider Physician Assistant Medical; PCP Family Medicine
DX: R51 Headache (principal); R03.0 Elevated blood-pressure reading, without diagnosis of hypertension
CPT/HCPCS: 70450; 80048; 85025; 93005; 99284

== ENCOUNTER → 2019-12-22 | Outpatient (CLI) | payer BC, SELFPAY ==
[2019-12-22 10:37] LABS: Anion Gap 2 (5-15); BUN 16 mg/dL (7-18); BUN/Creat Ratio 13.7 RATIO (10-20); Calcium,Total 9.1 mg/dL (8.5-10.1); Chloride 105 mmol/L (98-107); Cholesterol 192 mg/dL (200); Creatinine, Serum 1.17 mg/dL (0.70-1.30); EST Glomerular Filtration Rate 68 mL/min (>60); Est Glom Filt Rate - Afr Amer 82 mL/min (>60); Glucose 81 mg/dL (74-106); High Density Lipoprotein 69 mg/dL; Potassium 4.2 mmol/L (3.5-5.1); Sodium Level 137 mmol/L (136-145); Triglycerides 50 mg/dL; Very Low Density Lipoprotein 10 mg/dL (5-40)
[2019-12-22 11:11] LABS: Hepatitis C Antibody Non-Reactive (Nonreactive)
== END | disposition home or self-care (01) ==
LOC: MFPLAB 08:12
PROVIDERS: PCP Family Medicine; Referring Provider Family Medicine; Visit Provider Family Medicine
DX: Z13.220 Encounter for screening for lipoid disorders (principal); Z11.59 Encounter for screening for other viral diseases
CPT/HCPCS: 36415; 80048; 80061; 86803

== ENCOUNTER → 2020-04-01 | Outpatient (CLI) | payer OTHER, SELFPAY | END | disposition home or self-care (01) | PROVIDERS: PCP Family Medicine; Referring Provider Nurse Practitioner Adult Health; Visit Provider Nurse Practitioner Adult Health | DX: U07.1 COVID-19 (principal) | CPT/HCPCS: 87635; U0005; U0003 ==

== ENCOUNTER 2020-11-04 13:02 | Emergency (ER) | payer OTHER, SELFPAY ==
[2020-11-04 13:03] VITALS: BP 157/84; PULSE 95; RESP 18; TEMP 36.8; O2SAT 98; BMI 25.9
--- NOTE | 2020-11-04 13:24 | EKG12_ITS ---
Test Reason : CP Blood Pressure : / mmHG Vent. Rate : 093 BPM Atrial Rate : 093 BPM P-R Int : 180 ms QRS Dur : 092 ms QT Int : 354 ms P-R-T Axes : 057 016 016 degrees QTc Int : 440 ms Normal sinus rhythm Normal ECG Confirmed by RAIN VERNON, EMILY ([id number]), photography editor JOE GODFREY ([id number]) on 11/06/2020 10:04:37 AM Referred By: JESSICA Confirmed By:EMILY RODRIGEZ MD
--- NOTE | 2020-11-04 13:29 | RAD_ITS ---
STUDY: X-RAY CHEST REASON FOR EXAM: Male, 60 years old. Chest pain TECHNIQUE: Single AP portable view of the chest. COMPARISON: None. FINDINGS: EKG electrodes are seen. The lungs are clear and expanded. There is no demonstrated pleural abnormality. Normal size heart. Normal mediastinum and cristel. Normal visualized pulmonary arteries. Normal visualized aortic arch and descending thoracic aorta. Normal visualized thoracic spine. Normal visualized ribs, clavicles, and shoulders. There is no demonstrated abnormality of the visualized soft tissue structures of the upper abdomen. RAD/Chest 1 View (Portable) IMPRESSION: Normal x-ray examination of the chest. Electronically Signed: Anand Calles MD at 13:52 EDT , Service support ,
--- NOTE | 2020-11-04 13:30 | EDS_ITS ---
HPI History of Present Illness Chief Complaint: Chest Pain Informant: patient Onset/Context/Timing Onset: Today Activity at onset: sudden Quality: Positive for Sharp Location: Substernal Current Severity: Mild Maximum Severity: Moderate Narrative Narrative: Patient presents with sudden onset of sharp chest pain. Patient states he was sitting at his desk eating when he developed sudden sharp pain down the center of his chest and into the epigastric region. He did not feel short of breath or nauseated. Pain has improved at this time. Patient states he did not feel like he choked or swallowed wrong. No known history of cardiac disease. He has had prior stress test that was normal. [facility] Medical History No pertinent past medical history Home Medications magnesium oxide 400 mg PO DAILY cap 02/16/18 [History Last Taken Unknown] mecobalamin (vitamin B12) 5,000 mcg disintegrating tablet 5,000 mcg PO DAILY tab 02/16/18 [History Last Taken Unknown] pyridoxine (vitamin B6) 500 mg tablet 500 mg PO DAILY 02/16/18 [History Last Taken Unknown] vitamin E 200 unit capsule 200 unit PO DAILY 02/16/18 [History Last Taken Unknown] zinc 50 mg tablet 50 mg PO DAILY 02/16/18 [History Last Taken Unknown] Allergy/AdvReac Type Severity Reaction Status Date / Time No Known Allergies Allergy Verified 11/04/20 13:06 Family History Mother CVA (cerebral vascular accident) Surgical History History of appendectomy History of colonoscopy History of nasal septoplasty History of tracheostomy History of umbilical hernia repair (~01/2018) Social History Smoking Status: Never smoker ROS ROS ED Constitutional Constitutional ED: Denies chills or fever(s) Eyes Eyes: Denies change in vision ENT ENT ED: Denies sore throat Cardiovascular Cardiovascular: Reports chest pain Respiratory/Chest Respiratory/Chest: Denies cough or dyspnea Gastrointestinal Gastrointestinal: Denies abdominal pain, diarrhea, nausea or vomiting Genitourinary Genitourinary ED: Denies dysuria Musculoskeletal Musculoskeletal: Denies back pain Integumentary Denies rash Neurologic Neurologic: Denies headache(s) or weakness Psychiatric Psychiatric: Denies anxiety or depression Allergic/Immunologic Allergic/Immunologic ED: Denies urticaria EXAM Physical Exam Const Vital Signs: 11/04/20 13:03 11/04/20 13:50 Temperature 98.2 F Temperature Source Temporal Pulse Rate 95 Respiratory Rate 18 Blood Pressure 157/84 H Blood Pressure Mean 108 Pulse Ox 98 Oxygen Delivery Method Room Air Room Air Positive well nourished and well developed General Appearance ED: well developed HEENT Reports normocephalic and head/scalp atraumatic Eyes PERRL and EOMs intact bilaterally Neck supple Chest Wall inspection of chest normal and palpation of chest normal Resp normal respiratory effort and clear to auscultation bilaterally Cardio regular rate and regular rhythm GI soft to palpation and non-tender Auscultation: hypoactive bowel sounds Palpation: soft Extremity normal to inspection Neuro oriented x3 and no sensory deficits noted Sensorium / Orientation: alert Motor Exam: strength 5/5 throughout Psych mental status grossly normal Skin no rashes or lesions noted Heart Score History: Slightly/Non-Suspicious ECG: Normal Age: >45 - <65 years Risk Factors: No Risk Factors Troponin: </= Normal Limit Score: 1 MDM MDM MDM Narrative Medical decision making narrative: Patient was given aspirin on arrival. EKG, labs, chest x-ray obtained. Lab Data Attestation: I reviewed the patient's lab results. Labs: Laboratory Results - last 24 hr 11/04/20 11/04/20 11/04/20 13:05 13:05 15:00 WBC 8.8 RBC 5.01 Hgb 14.9 Hct 45.0 MCV 89.8 MCH 29.7 MCHC 33.1 RDW Std Deviation 43.9 RDW Coeff of Bebeto 13.3 Plt Count 233 MPV 9.9 Immature Gran % (Auto) 0.200 Neut % (Auto) 66.2 Lymph % (Auto) 25.7 [place] % (Auto) 6.9 Eos % (Auto) 0.5 Baso % (Auto) 0.5 Absolute Neuts (auto) 5.8 Absolute Lymphs (auto) 2.26 Nucleated RBC % 0 Sodium 138 Potassium 3.8 Chloride 105 Carbon Dioxide 29.0 Anion Gap 4 L BUN 17 Creatinine 1.07 Estim Creat Clear Calc 71.03 Est GFR (MDRD) Af Amer 91 Est GFR (MDRD) Non-Af 75 BUN/Creatinine Ratio 15.9 Glucose 108 H Calcium 9.5 Troponin I High Sens 6.8 7.3 Radiography Chest X-Ray - ED: 1 View, Read by ED Physician, Normal, Heart, Lungs and Mediastinum Diagnostic Testing: Radiology Impression Chest X-Ray 11/04/20 13:29 IMPRESSION: Normal x-ray examination of the chest. Electronically Signed: Anand Calles MD at 13:52 EDT , Service support , EKG Initial EKG: Attestation: I personally reviewed and interpreted this EKG as follows: Interpretation: Sinus Rhythm (Sinus at 93 with no acute ischemia.) Treatment and Re-Evaluation Comments:: On reevaluation patient resting comfortably. Test results discussed with him. Because he did come in quickly after onset of pain 2-hour repeat trop onin was obtained and unremarkable. Patient is reassured with these findings. My suspicion is that he had esophageal spasm when he was eating his lunch. Return instructions were provided Discharge Plan Triage Chief Complaint: Chest Pain ED Provider: Yaneth Motnalvo Dx/Rx/DC Orders Clinical Impression: Atypical chest pain Instructions: ED Chest Pain, Noncardiac Prescriptions: No Action magnesium oxide 400 mg capsule 400 mg capsule 400 mg PO DAILY RF: 0 mecobalamin (vitamin B12) 5,000 mcg disintegrating tablet 5,000 mcg tablet,disintegrating 5,000 mcg PO DAILY RF: 0 zinc 50 mg tablet 50 mg PO DAILY RF: 0 vitamin E 200 unit capsule 200 unit PO DAILY RF: 0 pyridoxine (vitamin B6) 500 mg tablet 500 mg tablet 500 mg PO DAILY RF: 0 Primary Care Provider: Kashif Byrd Referrals: Kashif Byrd MD [Primary Care Provider] - As Needed Disposition Disposition: Home, Self Care
[2020-11-04 13:34] LABS: Absolute Lymphocyte Count 2.26 X10^3/uL (0.83-4.51); Absolute Neutrophil Count 5.8 X10^3/uL (2.0-7.7); Basophil# 0.04 X10^3/uL; Basophil% 0.5 % (0-1); Eosinophil# 0.04 X10^3/uL; Eosinophils% 0.5 % (0-5); Hemoglobin 14.9 g/dL (13.0-16.5); Lymphocyte # 2.26 X10^3/ul (0.83-4.51); Lymphocyte % 25.7 % (19-41); Mean Corp Hgb Conc 33.1 g/dL (32-36); Mean Corpuscular Hgb 29.7 pg (27.0-32.0); Mean Corpuscular Volume 89.8 fL (80-94); Mean Platelet Vol. 9.9 fl (6.2-12.0); Monocyte# 0.61 X10^3/uL; Monocyte% 6.9 % (0-10); NRBC Flagged by Analyzer 0 % (0-5); Neutrophil # 5.84 X10^3/uL (2.7-7.7); Neutrophil % 66.2 % (47-70); Platelet Count 233 K/mm3 (150-450); RBC Distribution Width CV 13.3 % (11.6-14.6); RBC Distribution Width SD 43.9 fl (35.1-43.9); Red Blood Count 5.01 M/mm3 (4.6-6.2); White Blood Count 8.8 K/mm3 (4.4-11.0)
[2020-11-04 13:47] LABS: Anion Gap 4 (5-15); BUN 17 mg/dL (7-18); BUN/Creat Ratio 15.9 RATIO (10-20); Calcium,Total 9.5 mg/dL (8.5-10.1); Chloride 105 mmol/L (98-107); Creatinine, Serum 1.07 mg/dL (0.70-1.30); EST Glomerular Filtration Rate 75 mL/min (>60); Est Glom Filt Rate - Afr Amer 91 mL/min (>60); Estimated Creatinine Clearance 71.03 ml/min; Glucose 108 mg/dL (74-106); Potassium 3.8 mmol/L (3.5-5.1); Sodium Level 138 mmol/L (136-145); Troponin-I HS 6.8 pg/mL (3.0-78.5)
[2020-11-04] MEDS: Aspirin 81 MG TAB.CHEW 324 MG PO (13:47)
[2020-11-04 15:32] LABS: Troponin-I HS 7.3 pg/mL (3.0-78.5)
[2020-11-04 15:53] VITALS: BP 132/85; PULSE 81; RESP 16; O2SAT 99
== END 2020-11-04 15:53 | disposition home or self-care (01) ==
PROVIDERS: Emergency Provider Emergency Medicine; PCP Family Medicine
DX: R07.89 Other chest pain (principal)
CPT/HCPCS: 71045; 80048; 84484; 85025; 93005; 99285; A4216

== ENCOUNTER → 2020-12-23 09:25 | Outpatient (CLI) | payer OTHER, SELFPAY ==
[2020-12-23 10:31] LABS: Alanine Aminotransfer ALT/SGPT 30 U/L (16-61); Cholesterol 166 mg/dL (200); High Density Lipoprotein 57 mg/dL; Triglycerides 60 mg/dL; Very Low Density Lipoprotein 12 mg/dL (5-40)
== END ==
PROVIDERS: PCP Family Medicine; Referring Provider Family Medicine; Visit Provider Family Medicine
DX: Z00.00 Encounter for general adult medical examination without abnormal findings (principal)
CPT/HCPCS: 36415; 80061; 84153; 84460; G0103

== ENCOUNTER 2021-03-27 15:43 | Outpatient (CLI) | payer OTHER, SELFPAY | END 2021-03-27 23:59 | disposition short-term general hospital (02) | PROVIDERS: PCP Family Medicine; Visit Provider Family Medicine | DX: U07.1 COVID-19 (principal) | CPT/HCPCS: 87635; U0003; U0005 ==

== ENCOUNTER → 2021-12-29 | Outpatient (CLI) | payer OTHER, SELFPAY ==
[2021-12-29 12:18] LABS: ALB/GLOB Ratio 1.1 RATIO (0.9-2.4); AST(SGOT) 55 U/L (15-37); Alanine Aminotransfer ALT/SGPT 36 U/L (16-61); Albumin, Serum 4.1 g/dL (3.2-5.0); Alkaline Phosphatase 81 U/L (45-117); Anion Gap 8 (5-15); BUN 11 mg/dL (7-18); BUN/Creat Ratio 9.5 RATIO (10-20); Calcium,Total 9.3 mg/dL (8.5-10.1); Chloride 106 mmol/L (98-107); Cholesterol 186 mg/dL (200); Creatinine, Serum 1.16 mg/dL (0.70-1.30); EST Glomerular Filtration Rate 68 mL/min (>60); Est Glom Filt Rate - Afr Amer 82 mL/min (>60); Globulin 3.8 g/dL (2.2-4.2); Glucose 98 mg/dL (74-106); High Density Lipoprotein 61 mg/dL; Potassium 3.7 mmol/L (3.5-5.1); Protein, Total 7.9 g/dL (6.4-8.2); Sodium Level 139 mmol/L (136-145); Triglycerides 49 mg/dL; Very Low Density Lipoprotein 10 mg/dL (5-40)
[2021-12-29 16:32] LABS: Microalbumin,Random Urine < 5.0 mg/L (NO RANGE EST.)
== END | disposition home or self-care (01) ==
LOC: MFPLAB 09:29
PROVIDERS: PCP Family Medicine; Visit Provider Family Medicine
DX: Z00.00 Encounter for general adult medical examination without abnormal findings (principal)
CPT/HCPCS: 36415; 80053; 80061; 82043; 82570

== ENCOUNTER → 2022-06-30 | Outpatient (CLI) | payer OTHER, SELFPAY ==
[2022-06-30 10:31] LABS: Microalbumin,Random Urine 8.8 mg/L (NO RANGE EST.)
[2022-06-30 10:36] LABS: ALB/GLOB Ratio 1.1 RATIO (0.9-2.4); AST(SGOT) 57 U/L (15-37); Alanine Aminotransfer ALT/SGPT 37 U/L (16-61); Alkaline Phosphatase 75 U/L (45-117); Anion Gap 5 (5-15); BUN 15 mg/dL (7-18); BUN/Creat Ratio 13.6 RATIO (10-20); Calcium,Total 9.2 mg/dL (8.5-10.1); Chloride 107 mmol/L (98-107); EST Glomerular Filtration Rate 72 mL/min (>60); Est Glom Filt Rate - Afr Amer 87 mL/min (>60); Globulin 3.5 g/dL (2.2-4.2); Glucose 104 mg/dL (74-106); Potassium 4.2 mmol/L (3.5-5.1); Protein, Total 7.5 g/dL (6.4-8.2); Sodium Level 138 mmol/L (136-145); Thyroid Stim Hormone (TSH) 1.64 uIU/mL (0.358-3.74)
== END | disposition home or self-care (01) ==
LOC: MFPLAB 08:36
PROVIDERS: PCP Family Medicine; Referring Provider Family Medicine; Visit Provider Family Medicine
DX: I10 Essential (primary) hypertension (principal); Z71.89 Other specified counseling
CPT/HCPCS: 36415; 80053; 82043; 82306; 82570; 84403; 84443

== ENCOUNTER → 2022-07-31 | Outpatient (CLI) | payer OTHER, SELFPAY ==
[2022-08-06 00:07] LABS: 5-HIAA, 24UR 2.2 mg/24 hr (0.0-14.9); Cortisol, Free 24Ur 80 ug/24 hr (5-64); Cortisol, Urinary Free 36 ug/L (Undefined); Metanephrine, Ur 84 ug/L (Undefined); Metanephrines, 24Ur 187 ug/24 hr (58-276); Normetanephrines, 24Ur 418 ug/24 hr (156-729); Normetanephrines, Ur 188 ug/L (Undefined)
== END | disposition home or self-care (01) ==
PROVIDERS: PCP Family Medicine; Referring Provider Family Medicine; Visit Provider Family Medicine
DX: R23.2 Flushing (principal)
CPT/HCPCS: 81050; 82530; 83497; 83835

== ENCOUNTER → 2022-08-10 | Outpatient (CLI) | payer OTHER, SELFPAY ==
--- NOTE | 2022-08-10 12:46 | ECHOD_ITS ---
Reason For Study: Cardiomegaly Procedure This was a 2D Doppler, Color Flow transthoracic echocardiogram. Exam performed in department. Left Ventricle Normal LV size. Left ventricular systolic function is normal. The estimated ejection fraction is 60 %. Stage 1 diastolic dysfunction. No regional wall motion abnormalities noted. Right Ventricle Normal RV size. Normal systolic function. Atria Normal left atrium. Normal right atrium. Mitral Valve Normal mitral valve. Tricuspid Valve Normal tricuspid valve. Mild tricuspid valve insufficiency. Pulmonary artery systolic pressure is 30 mmHg. Aortic Valve Trisinus/trileaflet aortic valve. Pulmonic Valve Normal pulmonic valve. Great Vessels Normal aortic root. The pulmonary artery is normal size. Normal inferior vena cava. Pericardium/Pleural No pericardial effusion. MMode/2D Measurements & Calculations LVIDd: 4.3 cm IVSd: 1.3 cm Ao root diam: 2.9 cm LVIDs: 2.8 cm LVPWd: 1.1 cm RVDd: 3.1 cm FS: 36.0 % LAV(MOD-bp): 36.0 ml RVOT diam: 2.0 cm LVAd ap4: 24.8 cm2 LAV(MOD-bp) Indexed: 18.4 ml/m2 LVLd ap4: 7.9 cm LAV(MOD-sp2): 34.9 ml EDV(MOD-sp4): 65.4 ml LAV(MOD-sp4): 32.8 ml EDV(sp4-el): 65.8 ml LVAs ap4: 13.8 cm2 LVLs ap4: 6.2 cm ESV(MOD-sp4): 27.4 ml ESV(sp4-el): 26.1 ml EF(MOD-sp4): 58.2 % EF(sp4-el): 60.3 % SV(MOD-sp4): 38.1 ml SV(sp4-el): 39.7 ml LA A4 area: 14.6 cm2 LA dimension(2D): 3.4 cm RA A4 area: 13.6 cm2 Time Measurements MV dec time: 0.22 sec Doppler Measurements & Calculations MV E max antony: 61.1 cm/sec Lat Peak E' Antony: 8.7 cm/sec Med Peak E' Antony: 8.1 cm/sec MV A max antony: 87.5 cm/sec E/E' lat: 7.0 E/E' med: 7.6 MV E/A: 0.70 Ao V2 max: 161.4 cm/sec LV V1 max: 107.5 cm/sec MV dec slope: 275.5 cm/sec2 Ao max P.4 mmHg LV V1 max P.6 mmHg Ao V2 mean: 108.5 cm/sec Ao mean P.5 mmHg Ao V2 VTI: 27.1 cm PA V2 max: 227.4 cm/sec PI end-d antony: 92.4 cm/sec SV(RVOT): 58.1 ml PA max PG (full): 15.7 mmHg PA V2 mean: 168.8 cm/sec PA mean PG (full): 9.8 mmHg TR max antony: 256.0 cm/sec TR max P.2 mmHg ECHO/Echo Complete Interpretation Summary Normal LV size. Left ventricular systolic function is normal. The estimated ejection fraction is 60 %. Stage 1 diastolic dysfunction. Pulmonary artery systolic pressure is 30 mmHg. Ordering Physician: Kashif Byrd Referring Physician: Kashif Byrd Performed By: Oksana Chavira RDCS, RVT
== END | disposition home or self-care (01) ==
LOC: CVS 12:44
PROVIDERS: PCP Family Medicine; Referring Provider Family Medicine; Visit Provider Family Medicine
DX: I51.7 Cardiomegaly (principal); I10 Essential (primary) hypertension
CPT/HCPCS: 93306

== ENCOUNTER → 2022-09-01 | Outpatient (CLI) | payer OTHER, SELFPAY ==
--- NOTE | 2022-09-01 12:44 | MRI_ITS ---
STUDY: MRI ABDOMEN WITH AND WITHOUT CONTRAST REASON FOR EXAM: Male, 62 years old. elevated cortisol levels. TECHNIQUE: Standardized fat and water weighted pulse sequences were obtained in all 3 orthogonal planes post contrast administration. IV 17cc clariscan was administered for the contrast portion of the examination. Adrenal protocol. COMPARISON: None. FINDINGS: Chest is unremarkable. Multiple nonenhancing hepatic cysts measuring up to 1.1 cm. No required imaging follow-up needed given high likelihood of benign nature. Normal gallbladder and extrahepatic biliary system. Normal spleen. Normal pancreas. Normal bilateral adrenal glands. No adrenal gland thickening or discrete mass/nodule. No hydronephrosis. Kidneys are not fully imaged. Visualized hollow viscus structures are unremarkable. Normal abdominal aorta. Normal inferior vena cava. Normal retroperitoneum. Normal abdominal wall. No bone marrow edema. MRI/MRI Abd WITH and W/O Contrast IMPRESSION: 1. Normal adrenal glands without adrenal mass, nodule or hyperplasia. Electronically Signed: Geoff Ballesteros (Brooks), at 16:39 EDT Reading Location ID and State: [facility] / [place] , Service support ,
[2022-09-01 13:11] LABS: CREATININE FINGERSTICK < 0.9 mg/dL (0.70-1.30); EGFR FINGERSTICK > 60.0000 mL/min (>60)
== END | disposition home or self-care (01) ==
PROVIDERS: PCP Family Medicine; Referring Provider Family Medicine; Visit Provider Family Medicine
DX: R79.89 Other specified abnormal findings of blood chemistry (principal)
CPT/HCPCS: 74183; A9575; A4216

== ENCOUNTER → 2022-10-10 | Outpatient (CLI) | payer OTHER, SELFPAY | END | disposition home or self-care (01) | LOC: LAB 07:59 | PROVIDERS: PCP Family Medicine; Referring Provider Physician Assistant Medical; Visit Provider Physician Assistant Medical | DX: E27.9 Disorder of adrenal gland, unspecified (principal) | CPT/HCPCS: 36415; 82533 ==

== ENCOUNTER → 2022-11-03 | Outpatient (CLI) | payer OTHER, SELFPAY ==
[2022-11-04 15:08] LABS: Adrenocorticotropic Hormone 31.6 pg/mL (7.2-63.3)
== END | disposition home or self-care (01) ==
LOC: LAB 07:04
PROVIDERS: PCP Family Medicine; Referring Provider Physician Assistant Medical; Visit Provider Physician Assistant Medical
DX: E27.9 Disorder of adrenal gland, unspecified (principal)
CPT/HCPCS: 36415; 82024; 82533; 82627; 82626

== ENCOUNTER → 2022-11-05 | Outpatient (CLI) | payer OTHER, SELFPAY ==
[2022-11-05 08:46] LABS: 24HR. Urine Creatinine 1.89 g/24 HR (0.90-2.10)
[2022-11-09 19:07] LABS: Cortisol, Free 24Ur 94 ug/24 hr (5-64); Cortisol, Urinary Free 46 ug/L (Undefined)
== END | disposition home or self-care (01) ==
LOC: LABSPEC 07:17
PROVIDERS: PCP Family Medicine; Referring Provider Physician Assistant Medical; Visit Provider Physician Assistant Medical
DX: E27.9 Disorder of adrenal gland, unspecified (principal)
CPT/HCPCS: 81050; 82530; 82570

== ENCOUNTER → 2022-11-27 | Outpatient (CLI) | payer OTHER, SELFPAY | END | disposition home or self-care (01) | PROVIDERS: PCP Family Medicine | DX: E27.9 Disorder of adrenal gland, unspecified (principal) ==

== ENCOUNTER → 2022-12-01 | Outpatient (CLI) | payer OTHER, SELFPAY | END | disposition home or self-care (01) | LOC: LAB 07:38 | PROVIDERS: PCP Family Medicine; Referring Provider Internal Medicine Endocrinology, Diabetes & Metabolism; Visit Provider Internal Medicine Endocrinology, Diabetes & Metabolism | DX: E27.9 Disorder of adrenal gland, unspecified (principal) | CPT/HCPCS: 36415; 82533 ==

== ENCOUNTER → 2022-12-16 | Outpatient (CLI) | payer OTHER, SELFPAY ==
[2022-12-16 09:52] LABS: ALB/GLOB Ratio 1.1 RATIO (0.9-2.4); AST(SGOT) 54 U/L (15-37); Alanine Aminotransfer ALT/SGPT 31 U/L (16-61); Albumin, Serum 3.8 g/dL (3.2-5.0); Alkaline Phosphatase 81 U/L (45-117); Anion Gap 4 (5-15); BUN 14 mg/dL (7-18); BUN/Creat Ratio 12.3 RATIO (10-20); Chloride 112 mmol/L (98-107); Creatinine, Serum 1.14 mg/dL (0.70-1.30); EST Glomerular Filtration Rate 69 mL/min (>60); Est Glom Filt Rate - Afr Amer 84 mL/min (>60); Follicle Stimulating Hormone 17.8 mIU/mL; Globulin 3.6 g/dL (2.2-4.2); Glucose 98 mg/dL (74-106); Luteinizing Hormone 5.1 mIU/mL; Potassium 3.7 mmol/L (3.5-5.1); Prolactin 8.5 ng/mL; Protein, Total 7.4 g/dL (6.4-8.2); Sodium Level 142 mmol/L (136-145); T4 Free Direct 0.97 ng/dL (0.76-1.46); Thyroid Stim Hormone (TSH) 2.12 uIU/mL (0.358-3.74)
[2022-12-20 16:08] LABS: Insulin Like Growth Factor 135 ng/mL (64-240); Testosterone, % Free 2.14 % (1.50-4.20); Testosterone, Total 542 ng/dL (264-916)
== END | disposition home or self-care (01) ==
LOC: LAB 07:45
PROVIDERS: PCP Family Medicine; Referring Provider Physician Assistant Medical; Visit Provider Physician Assistant Medical
DX: E24.0 Pituitary-dependent Cushing's disease (principal); E04.2 Nontoxic multinodular goiter
CPT/HCPCS: 36415; 80053; 82024; 82533; 83001; 83002; 84146; 84305; 84402; 84403; 84439; 84443

== ENCOUNTER → 2023-01-04 | Outpatient (CLI) | payer OTHER, SELFPAY ==
--- NOTE | 2023-01-04 15:30 | MRI_ITS ---
EXAM: MR HEAD WITHOUT AND WITH INTRAVENOUS CONTRAST, SELLA PROTOCOL CLINICAL INDICATION: PITUITARY ELIAZAR DISEASE TECHNIQUE: Magnetic resonance images of the sella without and with intravenous contrast in multiple planes using pituitary protocol. CONTRAST: IV 17ml Clariscan COMPARISON: No relevant prior studies available. FINDINGS: Brain: Brain is parenchymal signal intensity is normal. No restricted diffusion to suggest acute ischemia. No hemorrhage or mass effect. Ventricles are normal. Basal cisterns are normal. Normal vascular flow voids. SELLA: Normal. Pituitary gland is normal in size and signal. Normal sella turcica and suprasellar structures. CAVERNOUS SINUSES: Normal. OPTIC CHIASM: Normal. Unremarkable chiasm and post chiasmatic tracts. ORBITS: Normal. Optic globes are unremarkable.. Unremarkable optic nerve sheath and nerves. Unremarkable intraconal and extraconal spaces. Extra-ocular muscles are unremarkable. SINUSES: Mucosal thickening of the ethmoid sinuses. MRI/Brain W/WO Contrast IMPRESSION: Normal MRI brain. Normal pituitary gland and sella. Electronically Signed: Breezy Hein MD at 11:46 EDT ,
== END | disposition home or self-care (01) ==
LOC: MRI 15:19
PROVIDERS: PCP Family Medicine; Referring Provider Internal Medicine Endocrinology, Diabetes & Metabolism; Visit Provider Internal Medicine Endocrinology, Diabetes & Metabolism
DX: E24.0 Pituitary-dependent Cushing's disease (principal)
CPT/HCPCS: 70553

== ENCOUNTER → 2023-05-12 | Outpatient (CLI) | payer BC, SELFPAY | END | disposition home or self-care (01) | PROVIDERS: PCP Family Medicine; Referring Provider Internal Medicine Endocrinology, Diabetes & Metabolism; Visit Provider Internal Medicine Endocrinology, Diabetes & Metabolism | DX: E27.9 Disorder of adrenal gland, unspecified (principal) | CPT/HCPCS: 36415; 82533 ==

== ENCOUNTER → 2023-07-09 | Outpatient (CLI) | payer BC, SELFPAY ==
[2023-07-09 11:52] LABS: ALB/GLOB Ratio 1.1 RATIO (0.9-2.4); AST(SGOT) 61 U/L (15-37); Alanine Aminotransfer ALT/SGPT 48 U/L (16-61); Albumin, Serum 3.9 g/dL (3.2-5.0); Alkaline Phosphatase 77 U/L (45-117); Anion Gap 5 (5-15); BUN 14 mg/dL (7-18); BUN/Creat Ratio 12.6 RATIO (10-20); Calcium,Total 9.4 mg/dL (8.5-10.1); Chloride 110 mmol/L (98-107); Creatinine, Serum 1.11 mg/dL (0.70-1.30); EST Glomerular Filtration Rate 71 mL/min (>60); Est Glom Filt Rate - Afr Amer 86 mL/min (>60); Globulin 3.5 g/dL (2.2-4.2); Glucose 98 mg/dL (74-106); Potassium 3.9 mmol/L (3.5-5.1); Protein, Total 7.4 g/dL (6.4-8.2); Sodium Level 140 mmol/L (136-145)
[2023-07-09 12:15] LABS: Microalbumin,Random Urine 5.6 mg/L (NO RANGE EST.); Microalbumin:Creatinine Ratio 5.3 mg/g CRE (<30 mg/g CRE)
[2023-07-11 08:08] LABS: HOMOCYSTEINE 11.7 umol/L (0.0-17.2)
== END | disposition home or self-care (01) ==
LOC: MFPLAB 08:29
PROVIDERS: PCP Family Medicine; Visit Provider Family Medicine
DX: I10 Essential (primary) hypertension (principal)
CPT/HCPCS: 36415; 80053; 82043; 82570; 83090; 83880

== ENCOUNTER → 2023-08-18 | Outpatient (CLI) | payer BC, SELFPAY ==
[2023-08-19 15:08] LABS: Adrenocorticotropic Hormone 21.7 pg/mL (7.2-63.3)
== END | disposition home or self-care (01) ==
LOC: LABSPEC 07:45 → LAB 07:45
PROVIDERS: PCP Family Medicine; Visit Provider Internal Medicine Endocrinology, Diabetes & Metabolism
DX: E24.0 Pituitary-dependent Cushing's disease (principal)
CPT/HCPCS: 36415; 82024

== ENCOUNTER → 2023-08-18 | Outpatient (CLI) | payer BC, SELFPAY | END | disposition home or self-care (01) | LOC: LAB.FUTURE 15:46 | PROVIDERS: PCP Family Medicine; Visit Provider Internal Medicine Endocrinology, Diabetes & Metabolism | DX: E24.0 Pituitary-dependent Cushing's disease (principal) ==

== ENCOUNTER → 2023-08-20 | Outpatient (CLI) | payer BC, SELFPAY ==
[2023-08-20 08:49] LABS: 24HR. Urine Creatinine 2.03 g/24 HR (0.90-2.10)
[2023-08-31 13:08] LABS: Adrenocorticotropic Hormone 23.4 pg/mL (7.2-63.3); Cortisol, Urinary Free 39 ug/L (Undefined)
== END | disposition home or self-care (01) ==
LOC: LAB 07:50
PROVIDERS: PCP Family Medicine; Referring Provider Internal Medicine Endocrinology, Diabetes & Metabolism; Visit Provider Internal Medicine Endocrinology, Diabetes & Metabolism
DX: E24.0 Pituitary-dependent Cushing's disease (principal)
CPT/HCPCS: 36415; 81050; 82024; 82530; 82533; 82570

== ENCOUNTER → 2023-09-16 | Outpatient (CLI) | payer BC, SELFPAY | END | disposition home or self-care (01) | LOC: LAB 07:47 | PROVIDERS: PCP Family Medicine; Referring Provider Internal Medicine Endocrinology, Diabetes & Metabolism; Visit Provider Internal Medicine Endocrinology, Diabetes & Metabolism | DX: E24.0 Pituitary-dependent Cushing's disease (principal) | CPT/HCPCS: 36415; 82533 ==

== ENCOUNTER → 2024-01-17 | Outpatient (CLI) | payer BC, SELFPAY ==
[2024-01-17 09:16] LABS: Vitamin D,25 Hydroxy 26.3 ng/mL
[2024-01-17 09:22] LABS: ALB/GLOB Ratio 1.2 RATIO (0.9-2.4); AST(SGOT) 47 U/L (15-37); Alanine Aminotransfer ALT/SGPT 27 U/L (16-61); Albumin, Serum 3.8 g/dL (3.2-5.0); Alkaline Phosphatase 80 U/L (45-117); Anion Gap 7 (5-15); BUN 14 mg/dL (7-18); BUN/Creat Ratio 14.6 RATIO (10-20); Chloride 108 mmol/L (98-107); Creatinine, Serum 0.96 mg/dL (0.70-1.30); EST Glomerular Filtration Rate 84 mL/min (>60); Est Glom Filt Rate - Afr Amer 101 mL/min (>60); Globulin 3.3 g/dL (2.2-4.2); Glucose 91 mg/dL (74-106); Potassium 3.8 mmol/L (3.5-5.1); Protein, Total 7.1 g/dL (6.4-8.2); Sodium Level 144 mmol/L (136-145)
== END | disposition home or self-care (01) ==
LOC: LAB 07:56
PROVIDERS: PCP Family Medicine; Referring Provider Internal Medicine Endocrinology, Diabetes & Metabolism; Visit Provider Internal Medicine Endocrinology, Diabetes & Metabolism
DX: E24.0 Pituitary-dependent Cushing's disease (principal); E04.2 Nontoxic multinodular goiter; E55.9 Vitamin D deficiency, unspecified
CPT/HCPCS: 36415; 80053; 82306; 82627; 84443; 82626

== ENCOUNTER 2024-03-25 10:01 | Emergency (ER) | payer BC, SELFPAY ==
[2024-03-25 10:02] VITALS: BP 165/93; PULSE 91; RESP 16; TEMP 36.2; O2SAT 97; BMI 28.6
--- NOTE | 2024-03-25 10:19 | EKG12_ITS ---
Test Reason : CP Blood Pressure : */* mmHG Vent. Rate : 95 BPM Atrial Rate : 95 BPM P-R Int : 168 ms QRS Dur : 90 ms QT Int : 350 ms P-R-T Axes : 54 -5 16 degrees QTcB Int : 439 ms Normal sinus rhythm Minimal voltage criteria for LVH, may be normal variant ( R in aVL ) Nonspecific ST abnormality Abnormal ECG Confirmed by NINA VERNON, GUERA ([id number]), copy editor MARINA CHAPIN ([id number]) on 03/27/2024 6:59:50 AM Referred By: CARMELLA/SMITH Confirmed By: GUERA WOOD MD
--- NOTE | 2024-03-25 10:22 | RAD_ITS ---
STUDY: X-RAY CHEST REASON FOR EXAM: Male, 63 years old. Chest pain TECHNIQUE: Single AP portable view of the chest. COMPARISON: November 04, 2020 FINDINGS: The lungs are clear and expanded. There is no demonstrated pleural abnormality. Normal size heart. Normal mediastinum and cristel. Normal visualized pulmonary arteries. Normal visualized aortic arch and descending thoracic aorta. Normal visualized thoracic spine. Normal visualized ribs, clavicles, and shoulders. There is no demonstrated abnormality of the visualized soft tissue structures of the upper abdomen. RAD/Chest 1 View (Portable) IMPRESSION: Normal x-ray examination of the chest. Electronically Signed: Christiano France MD at 10:36 EST ,
[2024-03-25 10:42] LABS: Absolute Lymphocyte Count 2.07 X10^3/uL (0.83-4.51); Basophil# 0.06 X10^3/uL; Basophil% 0.9 % (0-1); Eosinophil# 0.17 X10^3/uL; Eosinophils% 2.5 % (0-5); Hematocrit 44.2 % (40-54); Hemoglobin 15.1 g/dL (13.0-16.5); Lymphocyte # 2.07 X10^3/ul (0.83-4.51); Lymphocyte % 29.9 % (19-41); Mean Corp Hgb Conc 34.2 g/dL (32-36); Mean Corpuscular Hgb 29.4 pg (27.0-32.0); Mean Corpuscular Volume 86.2 fL (80-94); Mean Platelet Vol. 10.1 fl (6.2-12.0); Monocyte# 0.62 X10^3/uL; NRBC Flagged by Analyzer 0 % (0-5); Neutrophil # 3.98 X10^3/uL (2.7-7.7); Neutrophil % 57.4 % (47-70); Platelet Count 254 K/mm3 (150-450); RBC Distribution Width CV 13.2 % (11.6-14.6); RBC Distribution Width SD 41.1 fl (35.1-43.9); Red Blood Count 5.13 M/mm3 (4.6-6.2); White Blood Count 6.9 K/mm3 (4.4-11.0)
[2024-03-25 10:53] LABS: Anion Gap 4 (5-15); BUN 14 mg/dL (7-18); BUN/Creat Ratio 12.6 RATIO (10-20); Calcium,Total 9.5 mg/dL (8.5-10.1); Chloride 107 mmol/L (98-107); Creatinine, Serum 1.11 mg/dL (0.70-1.30); EST Glomerular Filtration Rate 71 mL/min (>60); Est Glom Filt Rate - Afr Amer 86 mL/min (>60); Glucose 108 mg/dL (74-106); Potassium 3.5 mmol/L (3.5-5.1); Sodium Level 138 mmol/L (136-145); Troponin-I HS (w/2H Reflex) 4 pg/mL (3.0-78.0)
[2024-03-25 11:02] VITALS: BP 119/86; PULSE 82; RESP 16; O2SAT 96
--- NOTE | 2024-03-25 11:23 | ED.VIS.CHEST ---
HPI History of Present Illness Chief Complaint: Chest Pain Informant: patient Onset/Context/Timing Onset: Today Current Severity: Gone Maximum Severity: Mild Worsened By: Nothing Relieved By: Nothing Associated Symptoms: Positive for Nausea; Negative for Diaphoresis, Dyspnea, Cough, Fever, Acid Reflux or Palpitations Narrative Narrative: 63-year-old male history of hypertension. No prior cardiac disease. No prior heart cath. He did have a negative stress test 10 years ago or so. Today he was eating breakfast around 8:50 AM. Bogart a sharp left medial chest discomfort. Denies any radiation. Mild nausea associated with it both have since resolved. No shortness of breath. No diaphoresis. No recent exertional chest pain or exertional shortness of breath. No history of DVT or PE. No risk factors. No leg pain or swelling. No hemoptysis. Currently symptom-free. Is a non-smoker. Prior Similar Symptoms: Yes Recent Illness/Hospitalization: No CVD Risk Factors: Positive for Hypertension; Negative for Diabetes PE Risk Factors: Negative for Recent Travel/Surgery, Recent Immobilization, Prior DVT or PE, Cancer or OCP + Smoking + >/=35 TAD Risk Factors: Negative for Marfan's Syndrome [facility] Medical History No pertinent past medical history Home Medications ?Medication ?Instructions ?Recorded ?Last Taken ?Type magnesium oxide 400 mg PO DAILY 02/16/18 Unknown History mecobalamin (vitamin B12) 5,000 5,000 mcg PO DAILY 02/16/18 Unknown History mcg disintegrating tablet pyridoxine (vitamin B6) 500 mg 500 mg PO DAILY 02/16/18 Unknown History tablet vitamin E 200 unit capsule 200 unit PO DAILY 02/16/18 Unknown History zinc 50 mg tablet 50 mg PO DAILY 02/16/18 Unknown History Allergy/AdvReac Type Severity Reaction Status Date / Time fluticasone (From Flonase) Allergy Mild SWELLING Verified 03/25/24 10:05 IN THROAT Family History Mother CVA (cerebral vascular accident) Surgical History History of umbilical hernia repair (~01/2018) History of nasal septoplasty History of tracheostomy History of appendectomy History of colonoscopy Social History Smoking Status: Never smoker ROS ROS ED ROS Narrative Denies recent illness. Denies recent exertional chest pain nor any recent exertional shortness of breath. Constitutional Constitutional ED: Denies chills or fever(s) Eyes Eyes: Reports none ENT ENT ED: Denies ear pain Cardiovascular Cardiovascular: Reports as per HPI and chest pain; Denies palpitations or racing heartbeat Respiratory/Chest Respiratory/Chest: Denies cough, dyspnea or dyspnea on exertion Gastrointestinal Gastrointestinal: Denies abdominal pain Genitourinary Genitourinary ED: Denies dysuria or hematuria Musculoskeletal Musculoskeletal: Denies arthralgias or back pain Integumentary Denies abscess Neurologic Neurologic: Denies headache(s) Psychiatric Psychiatric: Denies anxiety or depression Endocrine Endocrinology: Denies cold intolerance Hematologic/Lymphatic Hematologic/Lymphatic: Denies easy bleeding or easy bruising Allergic/Immunologic Allergic/Immunologic ED: Denies mouth swelling, tongue swelling or urticaria EXAM Physical Exam Narrative Exam Narrative: Well-appearing 63-year-old male. Sitting upright in bed. Vital signs are stable. Afebrile. Pulse ox 97% on room air no hypoxia. He is in no distress. H EENT exam unremarkable. Mytrex members. Neck nontender no JVD. Lungs clear to auscultation bilaterally. Heart regular rate and rhythm rate about 90 no murmur. Chest wall ribs are nontender. There is no reproducible pain. Chest wall is unremarkable. Abdomen soft nontender. Moving all 4 extremities. Calves are nontender without edema or cord. 5 of 5 digital content manager strength. Equal symmetrical radial pulses. Back nontender. Neurologically is awake and alert. Answer questions following commands. No focal motor deficits. Benign exam. Const Vital Signs: 03/25/24 10:02 03/25/24 10:19 03/25/24 11:02 Temperature 97.2 F L Temperature Source Temporal Pulse Rate 91 82 Respiratory Rate 16 16 Blood Pressure 165/93 H 119/86 H Blood Pressure Mean 117 97 Pulse Ox 97 96 Oxygen Delivery Method Room Air Room Air 03/25/24 12:00 03/25/24 13:29 03/25/24 14:00 Temperature Temperature Source Pulse Rate 79 81 82 Respiratory Rate 14 20 H 16 Blood Pressure 127/77 H 116/81 H 120/88 H Blood Pressure Mean 93 92 98 Pulse Ox 97 96 95 Oxygen Delivery Method Room Air Room Air Positive well nourished and well developed; Negative for obese, cachectic, contractures or unkempt General Appearance ED: well developed and NAD; Negative for unkempt, cachectic, contractures or pallor Nutritional Appearance: Negative for cachectic or obese HEENT Reports moist mucous membranes normocephalic and atraumatic; Negative for trauma or tenderness Eyes PERRL and EOMs intact bilaterally General Eye ED: Negative for pale conjunctiva or scleral icterus Neck no lymphadenopathy, supple and no JVD General: Negative for tenderness Chest Wall inspection of chest normal and palpation of chest normal Chest: Negative for tenderness Resp normal respiratory effort and clear to auscultation bilaterally Effort and Inspection: Negative for respiratory distress Auscultation: Negative for rales, rhonchi, wheezes or diminished lung sounds Cardio regular rate, regular rhythm, S1 normal heart sound, S2 normal heart sound and no murmurs Rate: Negative for bradycardia or tachycardic Rhythm: Negative for abnormal rhythm Peripheral Pulses: pulses 2+ throughout GI normal to inspection, nondistended, normoactive bowel sounds, soft to palpation, non-tender, non-distended and no masses Palpation: Negative for splenomegaly Back/Spine no CVA tenderness and no thoracic nor lumbar tenderness General Back: Negative for CVA tenderness Cervical Spine: Negative for cervical spine tenderness Extremity normal to inspection General Extremety ED: Negative for edema, pulses abnormal or tenderness General Extremity: Negative for edema or pulses abnormal Neuro oriented x3 and CN's II-XII intact bilaterally Sensorium / Orientation: awake, alert, oriented to person, oriented to place and oriented to time; Negative for confused, lethargic or stuporous Motor Exam: strength 5/5 throughout; Negative for general weakness or strength abnormal Psych mental status grossly normal Appearance: Negative for unkempt Attitude: No agitated Mood & Affect: Negative for depressed, anxious or tearful Skin no rashes or lesions noted and no wounds General Skin Exam: Negative for jaundice or pallor Rashes: No rashes noted Trauma: Negative for abrasion, laceration or puncture Heart Score History: Slightly/Non-Suspicious ECG: Normal Age: >45 - <65 years Risk Factors: 1 or 2 Risk Factors Troponin: </= Normal Limit Score: 2 MDM MDM MDM Narrative Medical decision making narrative: 63-year-old male with atypical nonreproducible nonexertional chest pain today that resolved. Cardiac workup with a 2-hour troponin events unremarkable be discharged home with outpatient follow-up. Exam is benign. No history nor physical findings nor historical concerns for DVT or PE. Repeat exam patient doing well at 2:17 PM. We went over his test results. He is comfortable being discharged home. He had very atypical nonreproducible fleeting chest pain. He has no exertional chest pain or dyspnea. I do not think he needs to be admitted. He can follow-up with his primary care physician for further evaluation and workup. History & Record Review Discussion w/independent historian: Patient Additional record(s) reviewed:: Prior inpatient record, Prior outpatient record, Prior ED visit and Prior labs Lab Data Attestation: I reviewed the patient's lab results. Lab results narrative: CBC normal. White count of 6. H&H 15 and 44. Platelets 254. Electrolytes unremarkable gap 4. Normal BUN of 14 creatinine 1.1. Glucose 108. Initial troponin 4. 2-hour troponin equal to 3. EKG unremarkable. Chest x-ray unremarkable. Labs: Laboratory Results - last 24 hr 03/25/24 03/25/24 10:17 12:11 WBC 6.9 RBC 5.13 Hgb 15.1 Hct 44.2 MCV 86.2 MCH 29.4 MCHC 34.2 RDW Std Deviation 41.1 RDW Coeff of Bebeto 13.2 Plt Count 254 MPV 10.1 Immature Gran % (Auto) 0.300 Neut % (Auto) 57.4 Lymph % (Auto) 29.9 [place] % (Auto) 9.0 Eos % (Auto) 2.5 Baso % (Auto) 0.9 Absolute Neuts (auto) 4.0 Absolute Lymphs (auto) 2.07 Nucleated RBC % 0 Sodium 138 Potassium 3.5 Chloride 107 Carbon Dioxide 27.0 Anion Gap 4 L BUN 14 Creatinine 1.11 Estim Creat Clear Calc 70.20 Est GFR (MDRD) Af Amer 86 Est GFR (MDRD) Non-Af 71 BUN/Creatinine Ratio 12.6 Glucose 108 H Calcium 9.5 Troponin I High Sens 4 3 Radiography Chest X-Ray - ED: 1 View, Read by ED Physician, Heart, Lungs, Mediastinum, Bony Structures and No Acute Disease Diagnostic Testing: Clinical Impression(s) from Imaging Studies Chest X-Ray 03/25/24 10:22 IMPRESSION: Normal x-ray examination of the chest. Electronically Signed: Christiano France MD at 10:36 EST , Chest x-ray, portable, single view interpreted both by myself the radiologist shows no acute abnormality. Normal cardiac silhouette. Normal lung poon. Rhythm Strip Rhythm Strip: Sinus Rhythm Rate: 95 Ectopy: None EKG Initial EKG: Attestation: I personally reviewed and interpreted this EKG as follows: Interpretation: Sinus Rhythm and No Acute Injury Pattern Comments: Normal sinus rhythm rate 95 no acute signs of MS nor ischemia nor dysrhythmia. Discharge Plan Triage Chief Complaint: Chest Pain ED Provider: Noel Harrison Dx/Rx/DC Orders Clinical Impression: Atypical chest pain, Chest pain of uncertain etiology Instructions: ED Chest Pain, Uncertain Cause Prescriptions: No Action magnesium oxide 400 mg capsule 400 mg PO DAILY mecobalamin (vitamin B12) 5,000 mcg tablet,disintegrating 5,000 mcg PO DAILY zinc 50 mg tablet 50 mg PO DAILY vitamin E 200 unit capsule 200 unit PO DAILY pyridoxine (vitamin B6) 500 mg tablet 500 mg PO DAILY Primary Care Provider: Kashif Byrd Referrals: Kashif Byrd MD [Primary Care Provider] - As soon as possible Activity Restrictions/Additional Instructions: Your chest x-ray, EKG and labs were all unremarkable. Both heart enzymes were normal. Follow-up with primary care physician to determine if he wants to do further evaluation such as stress test. Print Language: Micronesian Disposition Disposition: Home, Self Care
[2024-03-25 12:00] VITALS: BP 127/77; PULSE 79; RESP 14; O2SAT 97
[2024-03-25 12:23] LABS: Reflex Troponin-HS? (from REC) Y
[2024-03-25 12:45] LABS: Troponin-I HS 3 pg/mL (3.0-78.0)
[2024-03-25 13:29] VITALS: BP 116/81; PULSE 81; RESP 20; O2SAT 96
[2024-03-25 14:00] VITALS: BP 120/88; PULSE 82; RESP 16; O2SAT 95
[2024-03-25 14:35] VITALS: BP 125/83; PULSE 77; RESP 16; TEMP 36.6; O2SAT 95
== END 2024-03-25 14:39 | disposition home or self-care (01) ==
PROVIDERS: Emergency Provider Emergency Medicine; PCP Family Medicine; Visit Provider Emergency Medicine
DX: R07.89 Other chest pain (principal); I10 Essential (primary) hypertension; R11.0 Nausea
CPT/HCPCS: 71045; 80048; 84484; 85025; 93005; 99284; A4216

== ENCOUNTER → 2024-04-17 | Outpatient (CLI) | payer BC, SELFPAY ==
[2024-04-17 09:06] LABS: PTHIN 41.7 pg/mL (18.4-80.1)
[2024-04-17 09:09] LABS: Vitamin D,25 Hydroxy 78.9 ng/mL
[2024-04-17 09:16] LABS: PSA,Total - Annual Screen 1.13 ng/mL (0.00-4.00)
[2024-04-17 09:16] LABS: AST(SGOT) 43 U/L (15-37); Alanine Aminotransfer ALT/SGPT 32 U/L (16-61); Albumin, Serum 3.7 g/dL (3.2-5.0); Alkaline Phosphatase 83 U/L (45-117); Anion Gap 6 (5-15); BUN 14 mg/dL (7-18); BUN/Creat Ratio 13.3 RATIO (10-20); Calcium,Total 9.4 mg/dL (8.5-10.1); Chloride 110 mmol/L (98-107); Creatinine, Serum 1.05 mg/dL (0.70-1.30); EST Glomerular Filtration Rate 76 mL/min (>60); Est Glom Filt Rate - Afr Amer 92 mL/min (>60); Globulin 3.8 g/dL (2.2-4.2); Glucose 116 mg/dL (74-106); Potassium 3.7 mmol/L (3.5-5.1); Protein, Total 7.5 g/dL (6.4-8.2); Sodium Level 141 mmol/L (136-145)
[2024-04-17 10:39] LABS: Microalbumin,Random Urine 9.4 mg/L (NO RANGE EST.); Microalbumin:Creatinine Ratio 4.5 mg/g CRE (<30 mg/g CRE)
== END | disposition home or self-care (01) ==
LOC: LAB 07:51
PROVIDERS: Internal Medicine Endocrinology, Diabetes & Metabolism; PCP Family Medicine; Referring Provider Family Medicine; Visit Provider Family Medicine
DX: Z12.5 Encounter for screening for malignant neoplasm of prostate (principal); E24.0 Pituitary-dependent Cushing's disease; M81.8 Other osteoporosis without current pathological fracture; E04.2 Nontoxic multinodular goiter; E21.5 Disorder of parathyroid gland, unspecified; E55.9 Vitamin D deficiency, unspecified; I10 Essential (primary) hypertension
CPT/HCPCS: 36415; 80053; 82043; 82306; 82570; 83970; 84153; 84443; G0103

== ENCOUNTER → 2024-04-20 | Outpatient (CLI) | payer BC, SELFPAY ==
[2024-04-20 10:54] LABS: (24 HR) Urine Calcium 232.3 mg/24 HR (42.0-353.0); 24HR UR TOTAL VOLUME 2300 ml; Calcium Urine pH Range 1; Urine Calcium (Random) 10.1 mg/dL (Not Estab.)
[2024-04-20 10:55] LABS: 24HR. Urine Creatinine 1.68 g/24 HR (0.90-2.10); 24Hr.Lytes Total Volume 2300 mL; Sodium 24 HR UR 245 mmol/24h (40-220); Urine Chloride 118 mmol/L (Not Establ.); Urine Chloride / 24 Hours 273 mmol/24h (110-250); Urine Sodium 106 mmol/L (Not Establ.)
[2024-04-25 12:28] LABS: Cortisol, Free 24Ur 78 ug/24 hr (5-64); Cortisol, Urinary Free 34 ug/L (Undefined)
== END | disposition home or self-care (01) ==
LOC: LABSPEC 07:30
PROVIDERS: PCP Family Medicine; Referring Provider Internal Medicine Endocrinology, Diabetes & Metabolism; Visit Provider Internal Medicine Endocrinology, Diabetes & Metabolism
DX: M81.8 Other osteoporosis without current pathological fracture (principal)
CPT/HCPCS: 81050; 82340; 82436; 82530; 82570; 84133; 84300

== ENCOUNTER → 2024-09-27 | Outpatient (CLI) | payer BC, SELFPAY ==
[2024-09-27 09:22] LABS: AST(SGOT) 55 U/L (<=37); Alanine Aminotransfer ALT/SGPT 30 U/L (<=46); Albumin, Serum 4.2 g/dL (3.4-4.8); Alkaline Phosphatase 78 U/L (40-129); Anion Gap 12 (5-15); BUN 14 mg/dL (4-19); BUN/Creat Ratio 13.1 RATIO (10-20); Calcium,Total 9.6 mg/dL (7.6-11.0); Carbon Dioxide 23.3 mmol/L (21.0-32.0); Chloride 105 mmol/L (98-108); Globulin 3.0 g/dL (2.2-4.2); Glucose 135 mg/dL (70-99); Potassium 3.6 mmol/L (3.3-5.1); Vitamin D,25 Hydroxy 37.3 ng/mL (30-100)
== END | disposition home or self-care (01) ==
LOC: LAB 08:01
PROVIDERS: PCP Family Medicine; Referring Provider Internal Medicine Endocrinology, Diabetes & Metabolism; Visit Provider Internal Medicine Endocrinology, Diabetes & Metabolism
DX: E04.2 Nontoxic multinodular goiter (principal); E55.9 Vitamin D deficiency, unspecified
CPT/HCPCS: 36415; 80053; 82306; 84443

== ENCOUNTER → 2025-03-21 | Outpatient (CLI) | payer BC, SELFPAY ==
--- OUTSIDE RECORDS SUMMARY | 2025-03-21 07:56 | XMS RPT_ITS | CCD ---
Author Organization [facility] Care Team Providers Care Station Mechanic Name Role Phone Dr. Kashif Byrd Primary Care Provider [phone] Dr. Anshul Mendoza Attending Provider Carson VERNON, Dr. Rowland Primary Care Provider [phone] Dr. Shayan Carver DO Attending Provider Dr. Shayan Carver DO Referring Provider Arnulfo Salinas Attending Unavailable Byrd, Kashif Referring Unavailable Byrd, Kashif Primary Care Unavailable Byrd, Kashif Referring Unavailable Byrd, Kashif Primary Care Unavailable Arnulfo Salinas Attending Unavailable Benjamin MOODY, Arnulfo Attending Unavailable Carson, Kashif Primary Care Unavailable Byrd, Kashif Referring Unavailable Shayan Carver Attending Unavailable Shayan Carver Referring Unavailable Byrd, Kashif Primary Care Unavailable Noel Harrison Attending Unavailable Byrd, Kashif Primary Care Unavailable Byrd, Kashif Attending Unavailable Byrd, Kashif Referring Unavailable Byrd, Kashif Primary Care Unavailable Shayan Carver Consulting Unavailable Wen, Shayan Referring Unavailable Byrd, Kashif Primary Care Unavailable Shayan Carver Attending Unavailable Wen, Shayan Referring Unavailable Byrd, Kashif Primary Care Unavailable Shayan Carver Attending Unavailable Allergies Allergy Classification Reported Allergen(s) Allergy Type Date of Onset Reaction(s) Facility (1 source) fluticasone Drug Allergy 5 SWELLING IN THROAT [facility] (1 source) fluticasone Drug Allergy 5 [facility] Repository Medications Current Medications Medication Drug Class(es) Dates Sig (Normalized) Sig (Original) magnesium oxide 400 mg oral capsule (11 sources) Start: 02-16-2018 take 1 capsule by mouth once daily Magnesium Oxide 400 mg capsule Active 400 mg PO DAILY February 16, 2018 1:00am mecobalamin 5 mg disintegrating oral tablet (11 sources) Start: 02-16-2018 take 1 tablet by mouth once daily Mecobalamin (Vitamin B12) 5,000 mcg tablet,disintegrat ing Active 5000 ug PO DAILY 0 February 16, 2018 1:00am vitamin b6 500 mg oral tablet (11 sources) Start: 02-16-2018 take 1 tablet by mouth once daily Pyridoxine (Vitamin B6) 500 mg tablet Active 500 mg PO DAILY February 16, 2018 1:00am vitamin e 90 mg oral capsule (11 sources) Start: 02-16-2018 take 1 capsule by mouth once daily Vitamin E 200 unit capsule Active 200 U PO DAILY February 16, 2018 1:00am Zinc (11 sources) Start: 02-16-2018 take 1 tablet by mouth once daily Zinc 50 mg tablet Active 50 mg PO DAILY February 16, 2018 1:00am Start: 02-16-2018 take 50 mg by mouth once daily Zinc Active 50 MG PO DAILY February 16, 2018 1:00am Completed/Discontinued Medications Medication Drug Class(es) Dates Sig (Normalized) Sig (Original) acetaminophen 325 mg / HYDROcodone bitartrate 5 mg oral tablet (20 sources) Opioid Agonist Start: 02-16-2018 End: 02-19-2018 Hydrocodone-Acetamino phen 1 TABLET tablet Discontinued 1 {tbl} PO EVERY 6 HOURS NEEDED as needed for Pain 10 February 16, 2018 1:00am February 18, 2018 1:00am February 19, 2018 1:14am Postoperative pain Other acute postprocedural pain Start: 02-16-2018 End: 02-19-2018 take 1 tablet by mouth every six hours as needed Hydrocodone-Acetaminophen Discontinued 1 TABLET PO EVERY 6 HOURS NEEDED 12 22February 16, 2018 1:00am February 19, 2018 1:14am Start: 03-13-2014 End: 02-16-2018 Hydrocodone-Acetaminophen 1 TABLET tablet Discontinued 1 - 2 {tbl} PO EVERY 4 HOURS NEEDED as needed for Pain March 13, 2014 1:00am February 16, 2018 1:33pm Start: 03-13-2014 End: 02-16-2018 take 1 tablet by mouth every four hours as needed Hydrocodone-Acetaminophen Discontinued 1 - 2 TABLET PO EVERY 4 HOURS NEEDED March 13, 2014 1:00am February 16, 2018 1:33pm diazePAM 5 mg oral tablet (11 sources) Benzodiazepine Start: 03-13-2014 End: 02-16-2018 take 1 tablet by mouth every eight hours as needed for muscle spasms Diazepam 5 MG tablet Discontinued 5 mg PO EVERY 8 HOURS NEEDED as needed for Muscle Spasm March 13, 2014 4:54pm February 16, 2018 1:33pm Problems Active Problems Problem Classification Problem Date Documented Da te Episodic/Chronic Abdominal hernia (11 sources) Irreducible hernia of anterior abdominal wall; Translations: [Other and unspecified ventral hernia with obstruction, without gangrene] 11-17-2019 Episodic Headache; including migraine (11 sources) Headache; Translations: [Headache] 11-18-2019 Episodic Osteoporosis (1 source) Other osteoporosis without current pathological fracture; Translations: [Other osteoporosis without current pathological fracture] Onset: 05-09-2024 Chronic Other circulatory disease (11 sources) Elevated blood pressure; Translations: [Elevated blood-pressure reading, without diagnosis of hypertension] 11-18-2019 Episodic Other endocrine disorders (1 source) 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; 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] Onset: 02-07-2024 Chronic Thyroid disorders (1 source) Nontoxic multinodular goiter; Translations: [Nontoxic multinodular goiter] Onset: 10-03-2024 Chronic Past or Other Problems Problem Classification Problem Date Documented Da te Episodic/Chronic Nonspecific chest pain (13 sources) Atypical chest pain; Translations: [Other chest pain] Onset: 04-17-2024 11-04-2020 Episodic Open wounds of extremities (2 sources) Laceration of right index finger; Translations: [Laceration without foreign body of right index finger without damage to nail, initial encounter] Onset: 03-24-2024 03-02-2024 Episodic Other screening for suspected conditions (not mental disorders or infectious disease) (1 source) Encounter for screening for malignant neoplasm of prostate; Translations: [Encounter for screening for malignant neoplasm of prostate] Onset: 05-05-2024 Episodic Results Test Name Value Interpretation Reference Range Facility Anion gap in Serum or Plasma Ordered By: Shayan Carver on 09-27-2024 Anion gap [Moles/Vol] 12 mmol/L -15 [facility] BUN/creatinine ratioOrdered By: Shayan Carver on 09-27-2024 Urea nitrogen/Creatinine [Mass ratio] 13.1 mg/mg 10-20 [facility] Bilirubin, totalOrdered By: Shayan Carver on 09-27-2024 Bilirubin [Mass/Vol] 0.46 mg/dL 0.00-1.30 [facility] Carbon dioxide, total [Moles /volume] in Central venous bloodOrdered By: Shayan Carver on 09-27-2024 CO2 [Moles/Vol] 23.3 mmol/L 21.0-32.0 [facility] Chloride assayOrdered By: Magdaleno Carver on 09-27-2024 Chloride [Moles/Vol] 105 mmol/L 98-108 [facility] Comprehensive Metabolic Prof ilon 09-27-2024 Albumin [Mass/Vol] 4.2 g/dL Normal 3.4-4.8 [facility] Comment on above: Performed By: #### L 3600.5400, L502.000, L501.5280 #### [facility] [address] [place], [address] Albumin/Globulin [Mass ratio] 1.4 {ratio} Normal 0.9-2.4 [facility] Comment on above: Performed By: #### L 3600.5400, L502.000, L501.5280 #### [facility] [address] [place], [address] ALK PHOS 78 U/L Normal 40-129 [facility] Comment on above: Performed By: #### L 3600.5400, L502.000, L501.5280 #### [facility] [address] [place], [address] ALT [Catalytic activity/Vol] 30 U/L Normal <=46 [facility] Comment on above: Performed By: #### L 3600.5400, L502.000, L501.5280 #### [facility] [address] [place], [address] AST [Catalytic activity/Vol] 55 U/L High <=37 [facility] Comment on above: Performed By: #### L 3600.5400, L502.000, L501.5280 #### [facility] [address] [place], [address] Bilirubin [Mass/Vol] 0.46 mg/dL Normal 0.00-1.30 [facility] Comment on above: Performed By: #### L 3600.5400, L502.000, L501.5280 #### [facility] [address] [place], [address] BUN/CRE 13.1 RATIO Normal 10-20 [facility] Comment on above: Performed By: #### L 3600.5400, L502.000, L501.5280 #### [facility] [address] [place], [address] Calcium [Mass/Vol] 9.6 mg/dL Normal 7.6-11.0 [facility] Comment on above: Performed By: #### L 3600.5400, L502.000, L501.5280 #### [facility] [address] [place], [address] Chloride [Moles/Vol] 105 mmol/L Normal 98-108 [facility] Comment on above: Performed By: #### L 3600.5400, L502.000, L501.5280 #### [facility] [address] [place], [address] CO2 [Moles/Vol] 23.3 mmol/L Normal 21.0-32.0 [facility] Comment on above: Performed By: #### L 3600.5400, L502.000, L501.5280 #### [facility] [address] [place], [address] Creatinine [Mass/Vol] 1.10 mg/dL Normal 0.70-1.20 [facility] Comment on above: Performed By: #### L 3600.5400, L502.000, L501.5280 #### [facility] [address] [place], [address] GAP 12 Normal 5-15 [facility] Comment on above: Performed By: #### L 3600.5400, L502.000, L501.5280 #### [facility] [address] [place], [address] GFR/1.73 sq M.predicted among non-blacks MDRD (S/P/Bld) [Vol rate/Area] 75 mL/min/{1.73_m2} Normal >60 [facility] Comment on above: Result Comment: mL/m in/1.73m2 CKD-EPI Creatinine Equation (2020) Performed By: #### L 3600.5400, L502.000, L501.5280 #### [facility] [address] [place], [address] Globulin (S) [Mass/Vol] 3.0 g/dL Normal 2.2-4.2 [facility] Comment on above: Performed By: #### L 3600.5400, L502.000, L501.5280 #### [facility] [address] [place], [address] Glucose [Mass/Vol] 135 mg/dL High 70-99 [facility] Comment on above: Performed By: #### L 3600.5400, L502.000, L501.5280 #### [facility] [address] [place], [address] Potassium [Moles/Vol] 3.6 mmol/L Normal 3.3-5.1 [facility] Comment on above: Performed By: #### L 3600.5400, L502.000, L501.5280 #### [facility] [address] [place], [address] Sodium [Moles/Vol] 140 mmol/L Normal 133-145 [facility] Comment on above: Performed By: #### L 3600.5400, L502.000, L501.5280 #### [facility] [address] [place], [address] T PROT 7.3 g/dL Normal 5.9-8.4 [facility] Comment on above: Performed By: #### L 3600.5400, L502.000, L501.5280 #### [facility] [address] [place], [address] Urea nitrogen [Mass/Vol] 14 mg/dL Normal 4-19 [facility] Comment on above: Performed By: #### L 3600.5400, L502.000, L501.5280 #### [facility] [address] [place], [address] Glomerular filtration rate ( GFR) estimation/1.73 sq m using serum, plasma, or whole bOrdered By: Shayan Carver on 09-27-2024 GFR/1.73 sq M.predicted among non-blacks MDRD (S/P/Bld) [Vol rate/Area] 75 mL/min/{1.73_m2} >60 [facility] Comment on above: mL/min/1.73m2 CKD-EP I Creatinine Equation (2020) Laboratory - Chemistry and C hemistry - challengeOrdered By: Shayan Carver on 09-27-2024 AST [Catalytic activity/Vol] 55 U/L High <38 [facility] Potassium measurement (mass/ volume)Ordered By: Shayan Carver on 09-27-2024 Potassium (Unsp spec) [Mass/Vol] 3.6 mmol/L 3.3-5.1 [facility] Serum creatinine measurement (mass/volume)Ordered By: Shayan Carver on 09-27-2024 Creatinine [Mass/Vol] 1.10 mg/dL 0.70-1.20 [facility] Serum globulin measurementOr dered By: Shayan Carver on 09-27-2024 Globulin (S) [Mass/Vol] 3.0 g/dL 2.2-4.2 [facility] Serum glucose measurement (m ass/volume)Ordered By: Shayan Carver on 09-27-2024 Glucose [Mass/Vol] 135 mg/dL High 70-99 [facility] Serum or plasma alanine parsons otransferase (ALT) measurementOrdered By: Shayan Carver on 09-27-2024 ALT [Catalytic activity/Vol] 30 U/L <47 [facility] Serum or plasma albumin caterina urement (mass/volume)Ordered By: Shayan Carver on 09-27-2024 Albumin [Mass/Vol] 4.2 g/dL 3.4-4.8 [facility] Serum or plasma albumin/glob ulin mass ratioOrdered By: Shayan Carver on 09-27-2024 Albumin/Globulin [Mass ratio] 1.4 {ratio} 0.9-2.4 [facility] Serum or plasma alkaline chuck sphatase measurementOrdered By: Shayan Carver on 09-27-2024 ALP [Catalytic activity/Vol] 78 U/L 40-129 [facility] Serum or plasma calcium caterina urement (mass/volume)Ordered By: Shayan Carver on 09-27-2024 Calcium [Mass/Vol] 9.6 mg/dL 7.6-11.0 [facility] Serum or plasma urea nitroge n measurement (mass/volume)Ordered By: Shayan Carver on 09-27-2024 Urea nitrogen [Mass/Vol] 14 mg/dL 4-19 [facility] Sodium levelOrdered By: Yanna Carver on 09-27-2024 Sodium [Moles/Vol] 140 mmol/L 133-145 [facility] TSH DL <= 0.005 mIU/L QnOrde red By: Shayan Carver on 09-27-2024 TSH Qn 2.270 uIU/mL 0.300-4.20 0 [facility] Thyroid Stim Hormone (TSH)on 09-27-2024 TSH 2.270 uIU/mL Normal 0.300-4.20 0 [facility] Comment on above: Performed By: #### L 3600.5400, L502.000, L501.5280 #### [facility] [address] [place], [address] Total proteinOrdered By: Watson Carver on 09-27-2024 Protein [Mass/Vol] 7.3 g/dL 5.9-8.4 [facility] Vitamin D,25 Hydroxyon 09-27 Vitamin D 25-OH 37.3 ng/mL Normal 30-100 [facility] Comment on above: Result Comment: Pastora min D Status Deficiency: <20 ng/mL (50nmol/L) Insufficiency: 20-30 ng/mL (50-75 nmol/L) Sufficiency: 30-100 ng/mL (75-250 nmol/L) Toxicity: >100 ng/mL (>250 nmol/L) Performed By: #### L 3600.5400, L502.000, L501.5280 #### [facility] [address] [place], [address] Cortisol, 24 HR UR Freeon CORTISOL,F/24hr 78 ug/24 hr High 5-64 [facility] Comment on above: Order Comment: Test( s) 776595-Jmxhqeml,F,ug/L,U was developed and its performance characteristics determined by [facility]. It has not been cleared or approved by the Food and Drug Administration. Result Comment: Perf ormed at: [facility] [id number] Supervisory Aide: Elizabeth Morales MD, Phone: [phone] Performed By: #### L 3600.5400, L502.000, L501.5280 #### [facility] [address] [place], [address] CORTISOL,U FREE 34 ug/L Normal Undefined [facility] Comment on above: Order Comment: Test( s) [id number]-Pyzmwzmr,F,ug/L,U was developed and its performance characteristics determined by [facility]. It has not been cleared or approved by the Food and Drug Administration. Performed By: #### L 3600.5400, L502.000, L501.5280 #### [facility] [address] [place], [address] 24 HR Urine Creatinineon UR COLLECT TIME 24.0 HOURS Normal 24.0 [facility] Comment on above: Order Comment: SODIU M ONLY!! Performed By: #### L 3600.5400, L502.000, L501.5280 #### [facility] [address] [place], [address] UR TOTAL VOLUME 2.30 Normal [facility] Comment on above: Order Comment: SODIU M ONLY!! Performed By: #### L 3600.5400, L502.000, L501.5280 #### [facility] [address] [place], [address] UR.CREAT/24hr 1.68 g/24 HR Normal 0.90-2.10 [facility] Comment on above: Order Comment: SODIU M ONLY!! Performed By: #### L 3600.5400, L502.000, L501.5280 #### [facility] [address] [place], [address] URINE CREAT 73.10 mg/dL Normal NO RANGE EST. [facility] Comment on above: Order Comment: SODIU M ONLY!! Performed By: #### L 3600.5400, L502.000, L501.5280 #### [facility] [address] [place], [address] Calcium, Urine 24HRon 2024 24HR UR Calcium 232.3 mg/24 HR Normal 42.0-353.0 [facility] Comment on above: Performed By: #### L 3600.5400, L502.000, L501.5280 #### [facility] [address] [place], [address] Calcium UR pH 1 Normal [facility] Comment on above: Performed By: #### L 3600.5400, L502.000, L501.5280 #### [facility] [address] [place], [address] UR Collect Time 24.0 HR Normal 24.0-24.0 [facility] Comment on above: Performed By: #### L 3600.5400, L502.000, L501.5280 #### [facility] [address] [place], [address] UR Total Volume 2300 ml Normal [facility] Comment on above: Performed By: #### L 3600.5400, L502.000, L501.5280 #### [facility] [address] [place], [address] Urine Calcium 10.1 mg/dL Normal Not Estab. [facility] Comment on above: Performed By: #### L 3600.5400, L502.000, L501.5280 #### [facility] [address] [place], [address] Electrolytes, 24 HR URon Chloride [Moles/Vol] 118 mmol/L Normal Not Establ. [facility] Comment on above: Order Comment: SODIU M ONLY!! Performed By: #### L 3600.5400, L502.000, L501.5280 #### [facility] [address] [place], [address] Potassium [Moles/Vol] 33.0 mmol/L Normal Not Establ. [facility] Comment on above: Order Comment: SODIU M ONLY!! Performed By: #### L 3600.5400, L502.000, L501.5280 #### [facility] [address] [place], [address] UR CL/24 hr 273 mmol/24h High 110-250 [facility] Comment on above: Order Comment: SODIU M ONLY!! Performed By: #### L 3600.5400, L502.000, L501.5280 #### [facility] [address] [place], [address] UR K/24 HR 76.0 mmol/24h Normal 25-125 [facility] Comment on above: Order Comment: SODIU M ONLY!! Performed By: #### L 3600.5400, L502.000, L501.5280 #### [facility] [address] [place], [address] UR NA 106 mmol/L Normal Not Establ. [facility] Comment on above: Order Comment: SODIU M ONLY!! Performed By: #### L 3600.5400, L502.000, L501.5280 #### [facility] [address] [place], [address] UR NA/24HR 245 mmol/24h High 40-220 [facility] Comment on above: Order Comment: SODIU M ONLY!! Performed By: #### L 3600.5400, L502.000, L501.5280 #### [facility] [address] [place], [address] UR TOTAL VOLUME 2300 mL Normal [facility] Comment on above: Order Comment: SODIU M ONLY!! Performed By: #### L 3600.5400, L502.000, L501.5280 #### [facility] [address] [place], [address] Comprehensive Metabolic Prof miantony 04-17-2024 Albumin [Mass/Vol] 3.7 g/dL Normal 3.2-5.0 [facility] Comment on above: Performed By: #### L 506.1000, L500.4050, L509.1000, L501.9520 #### [facility] [address] [place], [address] Albumin/Globulin [Mass ratio] 1.0 {ratio} Normal 0.9-2.4 [facility] Comment on above: Performed By: #### L 506.1000, L500.4050, L509.1000, L501.9520 #### [facility] [address] [place], [address] ALK P 83 U/L Normal 45-117 [facility] Comment on above: Performed By: #### L 506.1000, L500.4050, L509.1000, L501.9520 #### [facility] [address] [place], [address] ALT [Catalytic activity/Vol] 32 U/L Normal 16-61 [facility] Comment on above: Performed By: #### L 506.1000, L500.4050, L509.1000, L501.9520 #### [facility] [address] [place], [address] AST [Catalytic activity/Vol] 43 U/L High 15-37 [facility] Comment on above: Performed By: #### L 506.1000, L500.4050, L509.1000, L501.9520 #### [facility] [address] [place], [address] Bilirubin [Mass/Vol] 0.60 mg/dL Normal 0.20-1.00 [facility] Comment on above: Result Comment: For patients on eltrombopag therapy, use of Dimension [place] TBIL is not recommended. Performed By: #### L 506.1000, L500.4050, L509.1000, L501.9520 #### [facility] [address] [place], [address] BUN/CRE 13.3 RATIO Normal 10-20 [facility] Comment on above: Performed By: #### L 506.1000, L500.4050, L509.1000, L501.9520 #### [facility] [address] [place], [address] CA,Total 9.4 mg/dL Normal 8.5-10.1 [facility] Comment on above: Performed By: #### L 506.1000, L500.4050, L509.1000, L501.9520 #### [facility] [address] [place], [address] Chloride [Moles/Vol] 110 mmol/L High 98-107 [facility] Comment on above: Performed By: #### L 506.1000, L500.4050, L509.1000, L501.9520 #### [facility] [address] [place], [address] CO2 [Moles/Vol] 26.0 mmol/L Normal 21.0-32.0 [facility] Comment on above: Performed By: #### L 506.1000, L500.4050, L509.1000, L501.9520 #### [facility] [address] [place], [address] Creatinine [Mass/Vol] 1.05 mg/dL Normal 0.70-1.30 [facility] Comment on above: Result Comment: The validity of the calculated GFR GFRAA in patients over 70 years has not been determined. Clinical correlation is essential. Performed By: #### L 506.1000, L500.4050, L509.1000, L501.9520 #### [facility] [address] [place], [address] EST GFR - AA 92 mL/min Normal >60 [facility] Comment on above: Result Comment: Afri can [place] GFR Calc Performed By: #### L 506.1000, L500.4050, L509.1000, L501.9520 #### [facility] [address] [place], [address] GAP 6 Normal 5-15 [facility] Comment on above: Performed By: #### L 506.1000, L500.4050, L509.1000, L501.9520 #### [facility] [address] [place], [address] GFR/1.73 sq M.predicted among non-blacks MDRD (S/P/Bld) [Vol rate/Area] 76 mL/min/{1.73_m2} Normal >60 [facility] Comment on above: Result Comment: Non- GFR Calc Performed By: #### L 506.1000, L500.4050, L509.1000, L501.9520 #### [facility] [address] [place], [address] Globulin (S) [Mass/Vol] 3.8 g/dL Normal 2.2-4.2 [facility] Comment on above: Performed By: #### L 506.1000, L500.4050, L509.1000, L501.9520 #### [facility] [address] [place], [address] Glucose [Mass/Vol] 116 mg/dL High 74-106 [facility] Comment on above: Result Comment: Fast ing Glucose result from 100 to 125 mg/dL suggests IMPAIRED HOMEOSTASIS per A.D.A. criteria. Performed By: #### L 506.1000, L500.4050, L509.1000, L501.9520 #### [facility] [address] [place], [address] Potassium [Moles/Vol] 3.7 mmol/L Normal 3.5-5.1 [facility] Comment on above: Performed By: #### L 506.1000, L500.4050, L509.1000, L501.9520 #### [facility] [address] [place], [address] Sodium [Moles/Vol] 141 mmol/L Normal 136-145 [facility] Comment on above: Performed By: #### L 506.1000, L500.4050, L509.1000, L501.9520 #### [facility] [address] [place], [address] T PROT 7.5 g/dL Normal 6.4-8.2 [facility] Comment on above: Performed By: #### L 506.1000, L500.4050, L509.1000, L501.9520 #### [facility] [address] [place], [address] Urea nitrogen [Mass/Vol] 14 mg/dL Normal 7-18 [facility] Comment on above: Performed By: #### L 506.1000, L500.4050, L509.1000, L501.9520 #### [facility] [address] [place], [address] Microalb:Creat Ratio,Random URon 04-17-2024 Creatinine [Mass/Vol] 210.00 mg/dL Normal NO RAN GE EST. [facility] Comment on above: Order Comment: SODIU M ONLY!! Performed By: #### L 3600.5400, L502.000, L501.5280 #### [facility] [address] [place], [address] MALB:CRE 4.5 mg/g CRE Normal <30 mg/g CRE [facility] Comment on above: Order Comment: SODIU M ONLY!! Performed By: #### L 3600.5400, L502.000, L501.5280 #### [facility] [address] [place], [address] MICROALBUMIN,UR 9.4 mg/L Normal NO RANGE EST. [facility] Comment on above: Order Comment: SODIU M ONLY!! Performed By: #### L 3600.5400, L502.000, L501.5280 #### [facility] [address] [place], [address] PSA,Total - Annual Screenon 04-17-2024 PSA,TOT SCREEN 1.13 ng/mL Normal 0.00-4.00 [facility] Comment on above: Order Comment: RAMIREZ Greene ONLY!! Result Comment: This test was performed using the TPSA assay method for the Noovo chemistry system. Values obtained with different assay methods cannot be used interchangably. When changing PSA assays in the course of monitoring a patient, additional sequential testing should be carried out to confirm baseline values. Performed By: #### L 3600.5400, L502.000, L501.5280 #### [facility] [address] [place], [address] PTHINon 04-17-2024 PTH 41.7 pg/mL Normal 18.4-80.1 [facility] Comment on above: Performed By: #### L 506.1000, L500.4050, L509.1000, L501.9520 #### [facility] [address] [place], [address] Thyroid Stim Hormone (TSH)on 04-17-2024 TSH 2.250 uIU/mL Normal 0.358-3.74 0 [facility] Comment on above: Performed By: #### L 506.1000, L500.4050, L509.1000, L501.9520 #### [facility] [address] [place], [address] Vitamin D,25 Hydroxyon 04-17 Vitamin D 25-OH 78.9 ng/mL Normal [facility] Comment on above: Result Comment: Pastora min D 25(OH) Status Range Deficiency <20 ng/mL (50nmol/L) Insufficiency 20 - 30 ng/mL (50 - 75 nmol/L) Sufficiency 30 - 100 ng/mL (75 - 250 nmol/L) Toxicity >100 ng/mL (>250 nmol/L) Performed By: #### L 506.1000, L500.4050, L509.1000, L501.9520 #### [facility] [address] [place], [address] 12 Lead EKGon 03-25-2024 12 Lead EKG [facility] [address] [place] [address] 12 Lead EKG 03/25/24 1008 MR#: [id number] Acct: [id number] Name: MICHAEL CEDEÑO Rep #: [id number] : 1960 63 From: Anshul Mendoza MD Attending Dr: Status: DEP ER Ordering Dr: Noel Harrison MD Date: 03/25/24 Location: ED Sex: M C Admitted: Test Reason : CP Blood Pressure : */* mmHG Vent. Rate : 95 BPM Atrial Rate : 95 BPM P-R Int : 168 ms QRS Dur : 90 ms QT Int : 350 ms P-R-T Axes : 54 -5 16 degrees QTcB Int : 439 ms Normal sinus rhythm Minimal voltage criteria for LVH, may be normal variant ( R in aVL ) Nonspecific ST abnormality Abnormal ECG Confirmed by ANSHUL MENDOZA MD ([id number]), technical editor MARINA CHAPIN ([id number]) on 03/27/2024 6:59:50 AM Referred By: BB/SMITH Confirmed By: ANSHUL MENDOZA MD 03/27/24 0659 Date Anshul Mendoza MD CC: Dr. Kashif Byrd MD; Dr. Noel Harrison MD Signed Normal [facility] Basic Metabolic Profile (BMP )on 03-25-2024 BUN/CRE 12.6 RATIO Normal 10-20 [facility] Comment on above: Order Comment: 1 Y Performed By: #### L 501.5425, L500.2500, L100.0100 #### [facility] [address], [address] CA,Total 9.5 mg/dL Normal 8.5-10.1 [facility] Comment on above: Order Comment: 1 Y Performed By: #### L 501.5425, L500.2500, L100.0100 #### [facility] [address] [place], [address] Chloride [Moles/Vol] 107 mmol/L Normal 98-107 [facility] Comment on above: Order Comment: 1 Y Performed By: #### L 501.5425, L500.2500, L100.0100 #### [facility] [address] [place], [address] CO2 [Moles/Vol] 27.0 mmol/L Normal 21.0-32.0 [facility] Comment on above: Order Comment: 1 Y Performed By: #### L 501.5425, L500.2500, L100.0100 #### [facility] [address] [place], [address] Creatinine [Mass/Vol] 1.11 mg/dL Normal 0.70-1.30 [facility] Comment on above: Order Comment: 1 Y Result Comment: The validity of the calculated GFR GFRAA in patients over 70 years has not been determined. Clinical correlation is essential. Performed By: #### L 501.5425, L500.2500, L100.0100 #### [facility] [address] [place], [address] ECRCL 70.20 ml/min Normal [facility] Comment on above: Order Comment: 1 Y Performed By: #### L 501.5425, L500.2500, L100.0100 #### [facility] [address] [place], [address] EST GFR - AA 86 mL/min Normal >60 [facility] Comment on above: Order Comment: 1 Y Result Comment: Afri can [place] GFR Calc Performed By: #### L 501.5425, L500.2500, L100.0100 #### [facility] [address] [place], [address] GAP 4 Low 5-15 [facility] Comment on above: Order Comment: 1 Y Performed By: #### L 501.5425, L500.2500, L100.0100 #### [facility] [address] [place], [address] GFR/1.73 sq M.predicted among non-blacks MDRD (S/P/Bld) [Vol rate/Area] 71 mL/min/{1.73_m2} Normal >60 [facility] Comment on above: Order Comment: 1 Y Result Comment: Non- GFR Calc Performed By: #### L 501.5425, L500.2500, L100.0100 #### [facility] [address] [place], [address] Glucose [Mass/Vol] 108 mg/dL High 74-106 [facility] Comment on above: Order Comment: 1 Y Result Comment: Fast ing Glucose result from 100 to 125 mg/dL suggests IMPAIRED HOMEOSTASIS per A.D.A. criteria. Performed By: #### L 501.5425, L500.2500, L100.0100 #### [facility] [address] [place], [address] Potassium [Moles/Vol] 3.5 mmol/L Normal 3.5-5.1 [facility] Comment on above: Order Comment: 1 Y Performed By: #### L 501.5425, L500.2500, L100.0100 #### [facility] [address] [place], [address] Sodium [Moles/Vol] 138 mmol/L Normal 136-145 [facility] Comment on above: Order Comment: 1 Y Performed By: #### L 501.5425, L500.2500, L100.0100 #### [facility] [address] [place], [address] Urea nitrogen [Mass/Vol] 14 mg/dL Normal 7-18 [facility] Comment on above: Order Comment: 1 Y Performed By: #### L 501.5425, L500.2500, L100.0100 #### [facility] [address] [place], [address] CBC W/Diff, Automatedon 01-0 4-2024 Absolute Lymph 2.07 X10 3/uL Normal 0.83-4.51 [facility] Comment on above: Performed By: #### L 501.5425, L500.2500, L100.0100 #### [facility] [address] [place], [address] Absolute Neut 4.0 X10 3/uL Normal 2.0-7.7 [facility] Comment on above: Performed By: #### L 501.5425, L500.2500, L100.0100 #### [facility] [address] [place], [address] Basophils/100 WBC (Bld) 0.9 % Normal 0-1 [facility] Comment on above: Performed By: #### L 501.5425, L500.2500, L100.0100 #### [facility] [address] [place], [address] Eosinophils/100 WBC (Bld) 2.5 % Normal 0-5 [facility] Comment on above: Performed By: #### L 501.5425, L500.2500, L100.0100 #### [facility] [address] [place], [address] Erythrocyte distribution width (RBC) [Ratio] 13.2 % Normal 11.6-14.6 [facility] Comment on above: Performed By: #### L 501.5425, L500.2500, L100.0100 #### [facility] [address] [place], [address] Hematocrit (Bld) [Volume fraction] 44.2 % Normal 40-54 [facility] Comment on above: Performed By: #### L 501.5425, L500.2500, L100.0100 #### [facility] [address] [place], [address] Hemoglobin (Bld) [Mass/Vol] 15.1 g/dL Normal 13.0-16.5 [facility] Comment on above: Performed By: #### L 501.5425, L500.2500, L100.0100 #### [facility] [address] [place], [address] IG% 0.300 Normal 0.0-0.9 [facility] Comment on above: Result Comment: IG% - Immature Granulocytes (promyelocytes, myelocytes and metamyelocytes) > 1% indicates that a LEFT SHIFT is Present. Performed By: #### L 501.5425, L500.2500, L100.0100 #### [facility] [address] [place], [address] Lymphocytes/100 WBC (Bld) 29.9 % Normal 19-41 [facility] Comment on above: Performed By: #### L 501.5425, L500.2500, L100.0100 #### [facility] [address] [place], [address] MCH (RBC) [Entitic mass] 29.4 pg Normal 27.0-32.0 [facility] Comment on above: Performed By: #### L 501.5425, L500.2500, L100.0100 #### [facility] [address] [place], [address] MCHC (RBC) [Mass/Vol] 34.2 g/dL Normal 32-36 [facility] Comment on above: Performed By: #### L 501.5425, L500.2500, L100.0100 #### [facility] [address] [place], [address] MCV (RBC) [Entitic vol] 86.2 fL Normal 80-94 [facility] Comment on above: Performed By: #### L 501.5425, L500.2500, L100.0100 #### [facility] [address] [place], [address] Monocytes/100 WBC (Bld) 9.0 % Normal 0-10 [facility] Comment on above: Performed By: #### L 501.5425, L500.2500, L100.0100 #### [facility] [address] [place], [address] Neutrophils/100 WBC (Bld) 57.4 % Normal 47-70 [facility] Comment on above: Performed By: #### L 501.5425, L500.2500, L100.0100 #### [facility] [address] [place], [address] Nucleated RBC (Bld) [#/Vol] 0 10*3/uL Normal 0-5 [facility] Comment on above: Performed By: #### L 501.5425, L500.2500, L100.0100 #### [facility] [address] [place], [address] Platelet mean volume (Bld) [Entitic vol] 10.1 fL Normal 6.2-12.0 [facility] Comment on above: Performed By: #### L 501.5425, L500.2500, L100.0100 #### [facility] [address] [place], [address] Platelets (Bld) [#/Vol] 254 10*3/uL Normal 150-450 [facility] Comment on above: Performed By: #### L 501.5425, L500.2500, L100.0100 #### [facility] [address] [place], [address] RBC (Bld) [#/Vol] 5.13 10*6/uL Normal 4.6-6.2 [facility] Comment on above: Performed By: #### L 501.5425, L500.2500, L100.0100 #### [facility] [address], [address] RDW SD 41.1 fl Normal 35.1-43.9 [facility] Comment on above: Performed By: #### L 501.5425, L500.2500, L100.0100 #### [facility] [address] [place], [address] WBC (Bld) [#/Vol] 6.9 10*3/uL Normal 4.4-11.0 [facility] Comment on above: Performed By: #### L 501.5425, L500.2500, L100.0100 #### [facility] [address] [place], [address] Chest 1 View (Portable)on Chest 1 View (Portable) [facility] Imaging Services [address] [place] [address] Chest 1 View (Portable) MR#: [id number] Acct: [id number] Name: MICHAEL CEDEÑO Rep #: [id number] : 1960 M 63 From: Christiano France MD PCP: Dr. Kashif Byrd MD Status: PRE ER Study: Chest 1 View (Portable) Date of Exam: 03/25/24 Exam# [id number] Ordering Dr: Mohamud,Ed P. [id number] STUDY: X-RAY CHEST REASON FOR EXAM: Male, 63 years old. Chest pain TECHNIQUE: Single AP portable view of the chest. COMPARISON: November 04, 2020 FINDINGS: The lungs are clear and expanded. There is no demonstrated pleural abnormality. Normal size heart. Normal mediastinum and cristel. Normal visualized pulmonary arteries. Normal visualized aortic arch and descending thoracic aorta. Normal visualized thoracic spine. Normal visualized ribs, clavicles, and shoulders. There is no demonstrated abnormality of the visualized soft tissue structures of the upper abdomen. RAD/Chest 1 View (Portable) IMPRESSION: Normal x-ray examination of the chest. Electronically Signed: Christiano France MD at 10:36 EST , CC: Dr. Kashfi Byrd MD; ED PHYSICIAN PROVIDER Doorkeeper: Signed Normal [facility] Emergency Department Summary on 03-25-2024 Emergency Department Summary [facility] Medical Records Department [address] [place] [address] Emergency Department Summary 03/25/24 MR#: [id number] Acct: [id number] Name: MICHAEL CEDEÑO Rep #: [id number] : 1960 63 From: Noel Harrison MD PCP: Dr. Kashif Byrd MD Status:REG ER Location: ED HPI History of Present Illness Chief Complaint: Chest Pain Informant: patient Onset/Context/Timing Onset: Today Current Severity: Gone Maximum Severity: Mild Worsened By: Nothing Relieved By: Nothing Associated Symptoms: Positive for Nausea; Negative for Diaphoresis, Dyspnea, Cough, Fever, Acid Reflux or Palpitations Narrative Narrative: 63-year-old male history of hypertension. No prior cardiac disease. No prior heart cath. He did have a negative stress test 10 years ago or so. Today he was eating breakfast around 8:50 AM. [place] a sharp left medial chest discomfort. Denies any radiation. Mild nausea associated with it both have since resolved. No shortness of breath. No diaphoresis. No recent exertional chest pain or exertional shortness of breath. No history of DVT or PE. No risk factors. No leg pain or swelling. No hemoptysis. Currently symptom-free. Is a non-smoker. Prior Similar Symptoms: Yes Recent Illness/Hospitalization: No CVD Risk Factors: Positive for Hypertension; Negative for Diabetes PE Risk Factors: Negative for Recent Travel/Surgery, Recent Immobilization, Prior DVT or PE, Cancer or OCP + Smoking + >/=35 TAD Risk Factors: Negative for Marfan's Syndrome PFSH PFSH Medical History No pertinent past medical history Home Medications ???Medication ???Instructions ???Recorded ???Last Taken ???Type magnesium oxide 400 mg PO DAILY 02/16/18 Unknown History mecobalamin (vitamin B12) 5,000 5,000 mcg PO DAILY 02/16/18 Unknown History mcg disintegrating tablet pyridoxine (vitamin B6) 500 mg 500 mg PO DAILY 02/16/18 Unknown History tablet vitamin E 200 unit capsule 200 unit PO DAILY 02/16/18 Unknown History zinc 50 mg tablet 50 mg PO DAILY 02/16/18 Unknown History Allergy/AdvReac Type Severity Reaction Status Date / Time fluticasone (From Flonase) Allergy Mild SWELLING Verified 03/25/24 10:05 IN THROAT Family History Mother CVA (cerebral vascular accident) Surgical History History of umbilical hernia repair ( 01/2018) History of nasal septoplasty History of tracheostomy History of appendectomy History of colonoscopy Social History Smoking Status: Never smoker ROS ROS ED ROS Narrative Denies recent illness. Denies recent exertional chest pain nor any recent exertional shortness of breath. Constitutional Constitutional ED: Denies chills or fever(s) Eyes Eyes: Reports none ENT ENT ED: Denies ear pain Cardiovascular Cardiovascular: Reports as per HPI and chest pain; Denies palpitations or racing heartbeat Respiratory/Chest Respiratory/Chest: Denies cough, dyspnea or dyspnea on exertion Gastrointestinal Gastrointestinal: Denies abdominal pain Genitourinary Genitourinary ED: Denies dysuria or hematuria Musculoskeletal Musculoskeletal: Denies arthralgias or back pain Integumentary Denies abscess Neurologic Neurologic: Denies headache(s) Psychiatric Psychiatric: Denies anxiety or depression Endocrine Endocrinology: Denies cold intolerance Hematologic/Lymphatic Hematologic/Lymphatic: Denies easy bleeding or easy bruising Allergic/Immunologic Allergic/Immunologic ED: Denies mouth swelling, tongue swelling or urticaria EXAM Physical Exam Narrative Exam Narrative: Well-appearing 63-year-old male. Sitting upright in bed. Vital signs are stable. Afebrile. Pulse ox 97% on room air no hypoxia. He is in no distress. H EENT exam unremarkable. Mytrex members. Neck nontender no JVD. Lungs clear to auscultation bilaterally. Heart regular rate and rhythm rate about 90 no murmur. Chest wall ribs are nontender. There is no reproducible pain. Chest wall is unremarkable. Abdomen soft nontender. Moving all 4 extremities. Calves are nontender without edema or cord. 5 of 5 security police strength. Equal symmetrical radial pulses. Back nontender. Neurologically is awake and alert. Answer questions following commands. No focal motor deficits. Benign exam. Const Vital Signs: 03/25/24 10:02 03/25/24 10:19 03/25/24 11:02 Temperature 97.2 F L Temperature Source Temporal Pulse Rate 91 82 Respiratory Rate 16 16 Blood Pressure 165/93 H 119/86 H Blood Pressure Mean 117 97 Pulse Ox 97 96 Oxygen Delivery Method Room Air Room Air 03/25/24 12:00 03/25/24 13:29 03/25/24 14:00 Temperature (more content not included)... Normal [facility] L501.4020on 03-25-2024 TROPONIN-I HS 3 pg/mL Normal 3.0-78.0 [facility] Comment on above: Result Comment: Plea se Note: New Test Units and Gender Specific Reference Ranges. For more information see Policy Stat Procedure [facility] High Sensitivity Troponin (TNIH) and attachments. Performed By: #### L 3600.5400, L502.000, L501.5280 #### [facility] [address] [place], [address] L501.5425on 03-25-2024 TROPONIN-I HS 4 pg/mL Normal 3.0-78.0 [facility] Comment on above: Order Comment: RAMIREZ Greene ONLY!! Result Comment: Plea se Note: New Test Units and Gender Specific Reference Ranges. For more information see Policy Stat Procedure [facility] High Sensitivity Troponin (TNIH) and attachments. Performed By: #### L 3600.5400, L502.000, L501.5280 #### [facility] [address] [place], [address] Urgent Care Visit Reporton 1 05-11-2023 Urgent Care Visit Report [facility] [address], [address] [place] [address] OFFICE VISIT Date of Service: 03/10/24 MR#: [id number] Acct: [id number] Name: MICHAEL CEDEÑO Rep #: [id number] : 1960 Provider: FRANSISCO Bowman Age/Sex: 63/M Location: [facility] Status: Signed Intake Vital Signs 03/02/24 16:08 03/10/24 07:34 Height 5 ft 7 in Weight: 183 lb BMI 28.6 BP 136/96 H 118/74 Blood Pressure Location Rt brachial Lt brachial Position Sitting Sitting Respiration 16 16 Pulse 66 86 Pulse Source Monitor NIBP Temp 97.8 F 98.2 F Temp Source Oral Oral Pulse Oximetry (%) 97 96 Oxygen Delivery Method room air room air Intake Visit Reasons: SUTURE REMOVAL/ BWC/ [facility] Chief Complaint: WC suture removal right index finger Glass Blower Required: No Is patient in pain?: No Allergies No Known Allergies Allergy (Verified 03/10/24 07:34) Have you fallen in the past year?: No PFSH Medical History No pertinent past medical history Surgical History History of umbilical hernia repair ( 01/2018) History of nasal septoplasty History of tracheostomy History of appendectomy History of colonoscopy Family History Mother CVA (cerebral vascular accident) Social History Smoking Status: Never smoker HPI HPI Chief Complaint: WC suture removal right index finger Details: MICHAEL CEDEÑO, is a 63 M who presents to the office today for follow-up of work-related injury which occurred on 03/02/2024. Patient on that day sustained a laceration to the dorsal aspect of his right index finger. Patient states he has had no complications with the injury since. He is working without restrictions at this time without difficulty. He has had no fever, chills or sweats. No other associated symptoms or alleviating/aggravating factors. ROS Const Constitutional: No other (6 system ROS completed with pertinent findings in the HPI otherwise normal.) Exam Const General: cooperative and healthy appearing Skin Other: Laceration to the right index finger over the dorsal PIP joint which appears to be healing well without complication. All sutures removed without complication. Neuro General: patient alert Psych Appearance: grossly normal Mental Status: mental status grossly normal Coding Level of Care Code Off vis,est,level 3 Diagnoses Laceration of right index finger S61.210A Assessment and Plan Assessment and Plan (1) Laceration of right index finger: Status: Acute Plan: [employer] 14 filled out releasing patient back to work today without restrictions. All sutures removed without complication. Patient advised of ongoing wound management. Advised of other symptomatic management techniques as well as potential red flags and when appropriate to report to the ED. Patient verbalized understanding and agreement with all the above. Clinical Quality Measures Falls Risk Screening/Assistive Devices Have you fallen in the past year?: No 03/10/24 0741 Date Arnulfo Perezignroni Signature: Date (if applicable) CC: Normal [facility] Office Visit Reporton 2023 Office Visit Report [facility] [address] [place] [address] OFFICE VISIT Date of Service: 03/02/24 MR#: [id number] Acct: [id number] Patient: MICAHEL CEDEÑO Rep #: [id number] : 1960 Provider: FRANSISCO Bowman Age/Sex: 63/M Location: [facility] Status: Signed Intake Vital Signs 11/04/20 13:03 Height 5 ft 8 in Intake Visit Reasons: PA/NON DOT/DRUG/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 Chief Complaint: RT INDEX LAC / [facility] Allergies No Known Allergies Allergy (Verified 03/02/24 16:10) Office Procedures [facility] Billing Sheet Testing Post-Accident Non-DOT Breath Alcohol Test: Yes Post-Accident NON-DOT Drug Screen in [facility]: Yes 03/03/24 1208 Date Arnulfo MOODY Cosigner Signature: Date (if applicable) CC: Normal [facility] Urgent Care Visit Reporton 1 05-03-2023 Urgent Care Visit Report [facility] [address], [address] [place] [address] OFFICE VISIT Date of Service: 03/02/24 MR#: [id number] Acct: [id number] Name: MICHAEL CEDEÑONT Rep #: [id number] : 1960 Provider: FRANSISCO Bowman Age/Sex: 63/M Location: [facility] Status: Signed Intake Vital Signs 11/04/20 13:03 03/02/24 16:08 Height 5 ft 8 in 5 ft 7 in Weight: 183 lb BMI 28.6 BP 136/96 H Blood Pressure Location Rt brachial Position Sitting Respiration 16 Pulse 66 Pulse Source Monitor Temp 97.8 F Temp Source Oral Pulse Oximetry (%) 97 Oxygen Delivery Method room air 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 Chief Complaint: RT INDEX LAC / COUNSELING CENTER Glass Blower Required: No Accompanied by: Friend Is patient in pain?: No Allergies No Known Allergies Allergy (Verified 03/02/24 16:10) Medications ???Medication ???Instructions ???Recorded ???Confirmed ???Type magnesium oxide 400 mg PO DAILY 02/16/18 03/02/24 History mecobalamin (vitamin B12) 5,000 5,000 mcg PO DAILY 02/16/18 03/02/24 History mcg disintegrating tablet pyridoxine (vitamin B6) 500 mg 500 mg PO DAILY 02/16/18 03/02/24 History tablet vitamin E 200 unit capsule 200 unit PO DAILY 02/16/18 03/02/24 History zinc 50 mg tablet 50 mg PO DAILY 02/16/18 03/02/24 History Nurse's Note: pt states he was using a measuring tape and when it retracted he caught his index finger in the way and sliced it. [facility] Medical History No pertinent past medical history Surgical History History of umbilical hernia repair ( 01/2018) History of nasal septoplasty History of tracheostomy History of appendectomy History of colonoscopy Family History Mother CVA (cerebral vascular accident) Social History Smoking Status: Never smoker HPI HPI Chief Complaint: RT INDEX LAC / [facility] C[facility] Details: MICHAEL CEDEÑO, is a 63 M who presents to the office today for initial evaluation of a right index finger laceration which occurred at work today. Patient states he was using a measuring tape when the measuring tape came back and it cut him at the first knuckle of the right index finger. Patient denies numbness, tingling or loss range of motion. No previous injuries to the same. No other associated symptoms or alleviating/aggravating factors. ROS Const Constitutional: No other (6 system ROS completed with pertinent findings in the HPI otherwise normal.) Exam Const General: cooperative and healthy appearing Skin Other: Laceration to the right index finger over the dorsal PIP joint measuring approximately 1.5 cm in length. The wound was prepped and draped in sterile fashion. Anesthesia was achieved with 2 mL of 1% lidocaine. The wound was irrigated and explored. There were no foreign bodies, deep tissue involvement or tendon injuries. The wound was reapproximated using two 4-0 Ethilon sutures. There was excellent reapproximation of the wound edges. Wound dressed with bacitracin and sterile gauze. The patient tolerated the procedure without complication. Patient instructed to f/u for suture removal in 8 days. Neuro General: patient alert Psych Appearance: grossly normal Mental Status: mental status grossly normal Coding Level of Care Code Off vis,new,level 4 Diagnoses Laceration of right index finger S61.210A Assessment and Plan Assessment and Plan (1) Laceration of right index finger: Status: Acute Plan: First report of injury form as well as [employer] filled out releasing patient back to work today without restrictions. Patient refused tetanus immunization updated in the office today. Patient advised of ongoing wound management and to follow-up in 8 days for reevaluation or sooner should he have any worsening symptoms or new concerns. Advised of symptomatic management techniques including but not limited to use of ibuprofen or Tylenol as needed for pain. Patient advised of potential red flags and when appropriate to report to the ED. Patient verbalized understanding and agreement with all the above. 03/02/241636 Date Arnulfo Mary Signature: Date (if applicable) CC: Normal [facility] DHEA Sulfateon 01-18-2024 DHEA SULFATE 256.0 ug/dL Normal 48.9-344.2 [facility] Comment on above: Order Comment: RAMIREZ Greene ONLY!! Result Comment: Perf ormed at: CB - [facility] [address] [id number] Supervisory Aide: Dinesh Lara PhD, Phone: [phone] Performed By: #### L 2455.0362, S270.162, F527.4570 #### [facility] [place], [address] Comprehensive Metabolic Prof ilon 01-17-2024 Albumin [Mass/Vol] 3.8 g/dL Normal 3.2-5.0 [facility] Comment on above: Order Comment: SODIU M ONLY!! Performed By: #### L 3600.5400, L502.000, L501.5280 #### [facility] [address] [place], [address] Albumin/Globulin [Mass ratio] 1.2 {ratio} Normal 0.9-2.4 [facility] Comment on above: Order Comment: SODIU M ONLY!! Performed By: #### L 3600.5400, L502.000, L501.5280 #### [facility] [address] [place], [address] ALK P 80 U/L Normal 45-117 [facility] Comment on above: Order Comment: SODIU M ONLY!! Performed By: #### L 3600.5400, L502.000, L501.5280 #### [facility] [address] [place], [address] ALT [Catalytic activity/Vol] 27 U/L Normal 16-61 [facility] Comment on above: Order Comment: SODIU M ONLY!! Performed By: #### L 3600.5400, L502.000, L501.5280 #### [facility] [address] [place], [address] AST [Catalytic activity/Vol] 47 U/L High 15-37 [facility] Comment on above: Order Comment: SODIU M ONLY!! Performed By: #### L 3600.5400, L502.000, L501.5280 #### [facility] [address] [place], [address] Bilirubin [Mass/Vol] 0.70 mg/dL Normal 0.20-1.00 [facility] Comment on above: Order Comment: SODIU M ONLY!! Result Comment: For patients on eltrombopag therapy, use of Dimension [place] TBIL is not recommended. Performed By: #### L 3600.5400, L502.000, L501.5280 #### [facility] [address] [place], [address] BUN/CRE 14.6 RATIO Normal 10-20 [facility] Comment on above: Order Comment: SODIU M ONLY!! Performed By: #### L 3600.5400, L502.000, L501.5280 #### [facility] [address] [place], [address] CA,Total 9.0 mg/dL Normal 8.5-10.1 [facility] Comment on above: Order Comment: SODIU M ONLY!! Performed By: #### L 3600.5400, L502.000, L501.5280 #### [facility] [address] [place], [address] Chloride [Moles/Vol] 108 mmol/L High 98-107 [facility] Comment on above: Order Comment: SODIU M ONLY!! Performed By: #### L 3600.5400, L502.000, L501.5280 #### [facility] [address] [place], [address] CO2 [Moles/Vol] 28.0 mmol/L Normal 21.0-32.0 [facility] Comment on above: Order Comment: SODIU M ONLY!! Performed By: #### L 3600.5400, L502.000, L501.5280 #### [facility] [address] [place], [address] Creatinine [Mass/Vol] 0.96 mg/dL Normal 0.70-1.30 [facility] Comment on above: Order Comment: SODIU M ONLY!! Result Comment: The validity of the calculated GFR GFRAA in patients over 70 years has not been determined. Clinical correlation is essential. Performed By: #### L 3600.5400, L502.000, L501.5280 #### [facility] [address] [place], [address] EST GFR - AA 101 mL/min Normal >60 [facility] Comment on above: Order Comment: SODIU M ONLY!! Result Comment: Afri can [place] GFR Calc Performed By: #### L 3600.5400, L502.000, L501.5280 #### [facility] [address] [place], [address] GAP 7 Normal 5-15 [facility] Comment on above: Order Comment: SODIU M ONLY!! Performed By: #### L 3600.5400, L502.000, L501.5280 #### [facility] [address] [place], [address] GFR/1.73 sq M.predicted among non-blacks MDRD (S/P/Bld) [Vol rate/Area] 84 mL/min/{1.73_m2} Normal >60 [facility] Comment on above: Order Comment: SODIU M ONLY!! Result Comment: Non- GFR Calc Performed By: #### L 3600.5400, L502.000, L501.5280 #### [facility] [address] [place], [address] Globulin (S) [Mass/Vol] 3.3 g/dL Normal 2.2-4.2 [facility] Comment on above: Order Comment: SODIU M ONLY!! Performed By: #### L 3600.5400, L502.000, L501.5280 #### [facility] [address] [place], [address] Glucose [Mass/Vol] 91 mg/dL Normal 74-106 [facility] Comment on above: Order Comment: SODIU M ONLY!! Performed By: #### L 3600.5400, L502.000, L501.5280 #### [facility] [address] [place], [address] Potassium [Moles/Vol] 3.8 mmol/L Normal 3.5-5.1 [facility] Comment on above: Order Comment: SODIU M ONLY!! Performed By: #### L 3600.5400, L502.000, L501.5280 #### [facility] [address] [place], [address] Sodium [Moles/Vol] 144 mmol/L Normal 136-145 [facility] Comment on above: Order Comment: SODIU M ONLY!! Performed By: #### L 3600.5400, L502.000, L501.5280 #### [facility] [address] [place], [address] T PROT 7.1 g/dL Normal 6.4-8.2 [facility] Comment on above: Order Comment: SODIU M ONLY!! Performed By: #### L 3600.5400, L502.000, L501.5280 #### [facility] [address] [place], [address] Urea nitrogen [Mass/Vol] 14 mg/dL Normal 7-18 [facility] Comment on above: Order Comment: SODIU M ONLY!! Performed By: #### L 3600.5400, L502.000, L501.5280 #### [facility] [address] [place], [address] Thyroid Stim Hormone (TSH)on 01-17-2024 TSH 1.750 uIU/mL Normal 0.358-3.74 0 [facility] Comment on above: Order Comment: SODIU M ONLY!! Performed By: #### L 3600.5400, L502.000, L501.5280 #### [facility] [address] [place], [address] Vitamin D,25 Hydroxyon 01-16 Vitamin D 25-OH 26.3 ng/mL Normal [facility] Comment on above: Result Comment: Pastora min D 25(OH) Status Range Deficiency <20 ng/mL (50nmol/L) Insufficiency 20 - 30 ng/mL (50 - 75 nmol/L) Sufficiency 30 - 100 ng/mL (75 - 250 nmol/L) Toxicity >100 ng/mL (>250 nmol/L) Performed By: #### L 3600.5400, L502.000, L501.5280 #### [facility] [address] [place], [address] Basophil percentageOrdered B y: Kashif Byrd on 07-09-2023 Bilirubin [Mass/Vol] 0.60 mg/dL 0.20-1.00 [facility] Comment on above: For patients on eltr ombopag therapy, use of Dimension [place] TBIL is not recommended. Chloride [Moles/Vol] 110 mmol/L 98-107 [facility] Glucose [Mass/Vol] 98 mg/dL 74-106 [facility] Potassium [Moles/Vol] 3.9 mmol/L 3.5-5.1 [facility] Protein [Mass/Vol] 7.4 g/dL 6.4-8.2 [facility] Sodium [Moles/Vol] 140 mmol/L 136-145 [facility] - Chemistry and C hemistry - challengeOrdered By: Kashif Byrd on 07-09-2023 Natriuretic peptide B (Bld) [Mass/Vol] 7.0 pg/mL 0-100 [facility] Albumin/Globulin [Mass ratio] 1.1 {ratio} 0.9-2.4 [facility] ALP [Catalytic activity/Vol] 77 U/L 45-117 [facility] ALT [Catalytic activity/Vol] 48 U/L 16-61 [facility] CO2 [Moles/Vol] 25.0 mmol/L 21.0-32.0 [facility] Globulin (S) [Mass/Vol] 3.5 g/dL 2.2-4.2 [facility] Urea nitrogen/Creatinine [Mass ratio] 12.6 mg/mg 10-20 [facility] No Panel InformationOrdered By: Kashif Byrd on 07-09-2023 Estimated GFR (MDRD) Amer 86 mL/min >60 [facility] Comment on above: GFR Calc Estimated GFR (MDRD) Non-Af Amer 71 mL/min >60 [facility] Comment on above: Non- GFR Calc Homocysteine 11.7 umol/L 0.0-17.2 [facility] Comment on above: Performed at: [facility] [employer] [address] [id number] Director: Dinesh Lara PhD, Phone: [phone] Urine Microalbumin/Creatinine Ratio 5.3 mg/g CRE <30 [facility] Serum or plasma calcium caterina urement (mass/volume)Ordered By: Kashif Byrd on 07-09-2023 Calcium [Mass/Vol] 9.4 mg/dL 8.5-10.1 [facility] Serum or plasma creatinine m easurement (mass/volume)Ordered By: Kashif Byrd on 07-09-2023 Creatinine [Mass/Vol] 1.11 mg/dL 0.70-1.30 [facility] Comment on above: The validity of the calculated GFR & GFRAA in patients over 70 years has not been determined. Clinical correlation is essential. Serum or plasma urea nitroge n measurement (mass/volume)Ordered By: Kashif Byrd on 07-09-2023 Urea nitrogen [Mass/Vol] 14 mg/dL 7-18 [facility] Thin prep Papanicolaou smear with manual screeningOrdered By: Kashif Byrd on 07-09-2023 Thin prep Papanicolaou smear with manual screening 3.9 g/dL 3.2-5.0 [facility] Thin prep Papanicolaou smear with manual screening 61 U/L 15-37 [facility] Thin prep Papanicolaou smear with manual screening 5 5-15 [facility] Thin prep Papanicolaou smear with manual screening 5.6 mg/L NO RANGE EST. [facility] Urine creatinine measurement (mass/volume)Ordered By: Kashif Byrd on 07-09-2023 Creatinine (U) [Mass/Vol] 106.00 mg/dL NO RANGE EST. [facility] Serum or plasma cortisol ermelinda surement (mass/volume)Ordered By: Shayan Carver on 05-12-2023 Cortisol [Mass/Vol] 7.30 ug/dL 3.44-22.45 [facility] Comment on above: Adult (AM) 5.27 - 22 .45 ug/dL Adult (PM) 3.44 - 16.76 ug/dLPlease note revised CORTISOL reference range effective 2019. Basophil percentageOrdered B y: MUSTAPHA MORAN on 12-16-2022 Bilirubin [Mass/Vol] 0.70 mg/dL 0.20-1.00 [facility] Comment on above: For patients on eltr ombopag therapy, use of Dimension [place] TBIL is not recommended. Chloride [Moles/Vol] 112 mmol/L 98-107 [facility] Glucose [Mass/Vol] 98 mg/dL 74-106 [facility] Potassium [Moles/Vol] 3.7 mmol/L 3.5-5.1 [facility] Protein [Mass/Vol] 7.4 g/dL 6.4-8.2 [facility] Sodium [Moles/Vol] 142 mmol/L 136-145 [facility] Testosterone [Mass/Vol] 542 ng/dL 264-916 [facility] Comment on above: Adult male reference interval is based on a population ofhealthy nonobese males (BMI <30) between 19 and 39 yearsold. Chadd, et.al. JCEM 2017,102;2258-8389. PMID:[id number]. Free testosterone percentage Ordered By: MUSTAPHA MORAN on 12-16-2022 Testosterone Free/Testosterone.total [Mass fraction] 2.14 % 1.50-4.20 [facility] Insulin-like growth factor ( IGF) measurementOrdered By: MUSTAPHA MORAN on 12-16-2022 Insulin-like growth factor [Moles/Vol] 135 ng/mL 64-240 [facility] Comment on above: Performed at: [address] [id number] Director: Dinesh Lara PhD, Phone: [phone] at: [facility] [id number] Director: Elizabeth Morlaes MD, Phone: [phone] Laboratory - Chemistry and C hemistry - challengeOrdered By: MUSTAPHA MORAN on 12-16-2022 ALP [Catalytic activity/Vol] 81 U/L 45-117 [facility] ALT [Catalytic activity/Vol] 31 U/L 16-61 [facility] CO2 [Moles/Vol] 26.0 mmol/L 21.0-32.0 [facility] Free T4 [Mass/Vol] 0.97 ng/dL 0.76-1.46 [facility] Globulin (S) [Mass/Vol] 3.6 g/dL 2.2-4.2 [facility] Urea nitrogen/Creatinine [Mass ratio] 12.3 mg/mg 10-20 [facility] No Panel InformationOrdered By: MUSTAPHA MORAN on 12-16-2022 Adrenocorticotropic Hormone 27.0 pg/mL 7.2-63.3 [facility] Comment on above: ACTH reference inter corinna for samples collected between 7 and10 AM. Estimated GFR (MDRD) Amer 84 mL/min >60 [facility] Comment on above: GFR Calc Estimated GFR (MDRD) Non-Af Amer 69 mL/min >60 [facility] Comment on above: Non- GFR Calc Follicle Stimulating Hormone 17.8 mIU/mL [facility] Comment on above: NORMAL REFERENCE RAN GES FEMALE FOLLICULAR 2.3 - 12.6 mIU/mL MID-CYCLE PEAK 5.2 - 17.5 mIU/mL LUTEAL 1.7 - 12.9 mIU/mL POST-MENOPAUSAL ON MHT 5.9 - 72.8 mIU/mL NOT ON MHT 12.7 - 132.2 mlU/mL MALE 0.7 - 10.8 mIU/mL Luteinizing Hormone 5.1 mIU/mL [facility] Comment on above: NORMAL REFERENCE RAN GES FEMALE FOLLICULAR 1.9 - 26.2 mIU/mL MID-CYCLE PEAK 22.8 - 76.1 mIU/mL LUTEAL 0.6 - 16.6 mIU/mL POST-MENOPAUSAL ON MHT 1.1 - 52.4 mIU/mL NOT ON MHT 8.6 - 61.8 mIU/mL MALE 1.2 - 10.6 mIU/mL Thyroid Stimulating Hormone (TSH) 2.12 uIU/mL 0.358-3.74 [facility] Serum or plasma albumin caterina urement (mass/volume)Ordered By: MUSTAPHA MORAN on 12-16-2022 Albumin [Mass/Vol] 3.8 g/dL 3.2-5.0 [facility] Serum or plasma albumin/glob ulin mass ratioOrdered By: MUSTAPHA MORAN on 12-16-2022 Albumin/Globulin [Mass ratio] 1.1 {ratio} 0.9-2.4 [facility] Serum or plasma calcium caterina urement (mass/volume)Ordered By: MUSTAPHA MORAN on 12-16-2022 Calcium [Mass/Vol] 9.0 mg/dL 8.5-10.1 [facility] Serum or plasma cortisol ermelinda surement (mass/volume)Ordered By: MUSTAPHA MORAN on 12-16-2022 Cortisol [Mass/Vol] 24.70 ug/dL 3.44-22.45 [facility] Comment on above: Adult (AM) 5.27 - 22 .45 ug/dL Adult (PM) 3.44 - 16.76 ug/dLPlease note revised CORTISOL reference range effective 2019. Serum or plasma creatinine m easurement (mass/volume)Ordered By: MUSTAPHA MORAN on 12-16-2022 Creatinine [Mass/Vol] 1.14 mg/dL 0.70-1.30 [facility] Comment on above: The validity of the calculated GFR & GFRAA in patients over 70 years has not been determined. Clinical correlation is essential. Serum or plasma prolactin me asurement (mass/volume)Ordered By: MUSTAPHA MORAN on 12-16-2022 Prolactin [Mass/Vol] 8.5 ng/mL [facility] Comment on above: NORMAL REFERENCE RAN GES FEMALE NON- 2.2 - 30.3 ng/mL 8.1 - 347.6 ng/mL POST-MENOPAUSAL 0.7 - 31.5 ng/mL MALE 2.5 - 17.4 ng/mL Serum or plasma testosterone free measurement (mass/volume)Ordered By: MUSTAPHA MORAN on 12-16-2022 Testosterone Free [Mass/Vol] 11.60 ng/dL 5.00-21.00 [facility] Serum or plasma urea nitroge n measurement (mass/volume)Ordered By: MUSTAPHA MORAN on 12-16-2022 Urea nitrogen [Mass/Vol] 14 mg/dL 7-18 [facility] Thin prep Papanicolaou smear with manual screeningOrdered By: MUSTAPHA MORAN on 12-16-2022 Thin prep Papanicolaou smear with manual screening 54 U/L 15-37 [facility] Thin prep Papanicolaou smear with manual screening 4 5-15 [facility] Serum or plasma cortisol ermelinda surement (mass/volume)Ordered By: Shayan Carver on 12-01-2022 Cortisol [Mass/Vol] 1.50 ug/dL 3.44-22.45 [facility] Comment on above: Adult (AM) 5.27 - 22 .45 ug/dL Adult (PM) 3.44 - 16.76 ug/dLPlease note revised CORTISOL reference range effective 2019. No Panel Informationon 11-27 Miscellaneous Test See comment [facility] Comment on above: TEST RESULTS LIMITSS alivary Cortisol X2, Timed#1 Salivary Cortisol 0.545 ug/dLThis test was developed and its performance characteristicsdetermined by [employer]. It has not been cleared or approvedby the Food and Drug Administration.Draw date/time: 11/26/22 - 06:10Reference Range:Children and Adults:8:00a.m.: 0.025 - 0.600Noon: <0.010 - 0.3304:00p.m.: 0.010 - 0.200Bedtime (9:00p.m.-Midnight): <0.010 - 0.090#2 Salivary Cortisol 0.074 ug/dLDraw date/time: 11/26/22 - 20:45 [facility] ORIGINAL REPORT ON FILE IN LAB CONTAINS ADDITIONAL TEST SITE INFORMATION. 24 hour urine creatinine ermelinda surement (mass/time)Ordered By: MUSTAPHA MORAN on 11-05-2022 Creatinine (24H U) [Mass/Time] 1.89 g/24 HR 0.90-2.10 [facility] 24 hour urine free cortisol measurement (mass/time)Ordered By: MUSTAPHA MORAN on 11-05-2022 Cortisol Free (24H U) [Mass/Time] 94 ug/24 hr 5-64 [facility] Comment on above: Performed at: - L [address] [id number] Director: Elizabeth Morales MD, Phone: [phone] Laboratory - Specimen inform ationOrdered By: MUSTAPHA MORAN on 11-05-2022 Collection duration (U) 24.0 HOURS 24.0-24.0 [facility] Quantitative urine free ching isol measurement (mass/volume)Ordered By: MUSTAPHA MORAN on 11-05-2022 Cortisol Free (U) [Mass/Vol] 46 ug/L Undefined [facility] Urine creatinine measurement (mass/volume)Ordered By: MUSTAPHA MORAN on 11-05-2022 Creatinine (U) [Mass/Vol] 92.00 mg/dL NO RANGE EST. [facility] Urine volume measurementOrde red By: MUSTAPHA MORAN on 11-05-2022 Specimen volume (U) 2.00 L [facility] No Panel InformationOrdered By: MUSTAPHA MORAN on 11-03-2022 Adrenocorticotropic Hormone 31.6 pg/mL 7.2-63.3 [facility] Comment on above: ACTH reference inter cornina for samples collected between 7 and10 AM.Performed at: - [facility] [id number] Director: Dinesh Lara PhD, Phone: [phone] Dehydroepiandrosterone Sulfate 305.0 ug/dL 48.9-344.2 [facility] Serum or plasma cortisol ermelinda surement (mass/volume)Ordered By: MUSTAPHA MORAN on 11-03-2022 Cortisol [Mass/Vol] 26.00 ug/dL 3.44-22.45 [facility] Comment on above: Adult (AM) 5.27 - 22 .45 ug/dL Adult (PM) 3.44 - 16.76 ug/dLPlease note revised CORTISOL reference range effective 2019. Serum or plasma cortisol ermelinda surement (mass/volume)Ordered By: MUSTAPHA MORAN on 10-10-2022 Cortisol [Mass/Vol] 4.40 ug/dL 3.44-22.45 [facility] Comment on above: Adult (AM) 5.27 - 22 .45 ug/dL Adult (PM) 3.44 - 16.76 ug/dLPlease note revised CORTISOL reference range effective 2019. Basophil percentageOrdered B y: Dr. Byrd on 09-01-2022 Basophil percentage < 0.9 mg/dL 0.70-1.30 [facility] No Panel InformationOrdered By: Dr. Byrd on 09-01-2022 Bedside Estimated GFR (eGFR) > 60.0000 mL/min >60 [facility] 24 hour urine 5-hydroxyindol eacetate measurement (mass/volume)Ordered By: Dr. Byrd on 07-31-2022 5-Hydroxyindoleacetate (24H U) [Mass/Vol] 1.0 mg/L Undefined [facility] Comment on above: This test was develo ped and its performance characteristicsdetermined by [facility]. It has not been cleared orapproved by the Food and Drug Administration. 24 hour urine 5-hydroxyindol eacetic acid (5-HIAA) measurement (mass/time)Ordered By: Dr. Byrd on 07-31-2022 5-Hydroxyindoleacetate (24H U) [Mass/Time] 2.2 mg/24 hr 0.0-14.9 [facility] 24 hour urine free cortisol measurement (mass/time)Ordered By: Dr. Byrd on 07-31-2022 Cortisol Free (24H U) [Mass/Time] 80 ug/24 hr 5-64 [facility] Comment on above: Performed at: [address] [id number] Director: Elizabeth Morales MD, Phone: [phone] 24 hour urine normetanephrin e measurement (mass/time)Ordered By: Dr. Byrd on 07-31-2022 Normetanephrine (24H U) [Mass/Time] 418 ug/24 hr 156-729 [facility] No Panel InformationOrdered By: Dr. Byrd on 07-31-2022 Urine Metanephrines 24 Hour 187 ug/24 hr 58-276 [facility] Urine Normetanephrine 188 ug/L Undefined [facility] Quantitative urine free ching isol measurement (mass/volume)Ordered By: Dr. Byrd on 07-31-2022 Cortisol Free (U) [Mass/Vol] 36 ug/L Undefined [facility] Urine metanephrine measureme nt (mass/volume)Ordered By: Dr. Byrd on 07-31-2022 Metanephrine (U) [Mass/Vol] 84 ug/L Undefined [facility] Basophil percentageOrdered B y: Dr. Byrd on 06-30-2022 Bilirubin [Mass/Vol] 0.60 mg/dL 0.20-1.00 [facility] Comment on above: For patients on eltr ombopag therapy, use of Dimension [place] TBIL is not recommended. Chloride [Moles/Vol] 107 mmol/L 98-107 [facility] Glucose [Mass/Vol] 104 mg/dL 74-106 [facility] Comment on above: Fasting Glucose resu lt from 100 to 125 mg/dL suggests IMPAIRED HOMEOSTASIS per A.D.A. criteria. Potassium [Moles/Vol] 4.2 mmol/L 3.5-5.1 [facility] Protein [Mass/Vol] 7.5 g/dL 6.4-8.2 [facility] Sodium [Moles/Vol] 138 mmol/L 136-145 [facility] Testosterone [Mass/Vol] 488.00 ng/dL [facility] Comment on above: CENTRAL 90% REFERENC E RANGES MALE AGE <50 197.44 - 669.58 ng/dL MALE AGE > or = 50 187.72 - 684.19 ng/dL FEMALE AGE <50 8.38 - 35.01 ng/dL FEMALE AGE > or = 50 <7.00 - 35.92 ng/dL Effective as of 10/15/20 Laboratory - Chemistry and C hemistry - challengeOrdered By: Dr. Byrd on 06-30-2022 ALP [Catalytic activity/Vol] 75 U/L 45-117 [facility] ALT [Catalytic activity/Vol] 37 U/L 16-61 [facility] CO2 [Moles/Vol] 26.0 mmol/L 21.0-32.0 [facility] Globulin (S) [Mass/Vol] 3.5 g/dL 2.2-4.2 [facility] Urea nitrogen/Creatinine [Mass ratio] 13.6 mg/mg 10-20 [facility] No Panel InformationOrdered By: Dr. Byrd on 06-30-2022 Estimated GFR (MDRD) Amer 87 mL/min >60 [facility] Comment on above: GFR Calc Estimated GFR (MDRD) Non-Af Amer 72 mL/min >60 [facility] Comment on above: Non- GFR Calc Thyroid Stimulating Hormone (TSH) 1.64 uIU/mL 0.358-3.74 [facility] Urine Microalbumin/Creatinine Ratio 8.0 mg/g CRE <30 [facility] Vitamin D 25-Hydroxy 33.0 ng/mL [facility] Comment on above: Vitamin D 25(OH) Sta tus Range Deficiency <20 ng/mL (50nmol/L) Insufficiency 20 - 30 ng/mL (50 - 75 nmol/L) Sufficiency 30 - 100 ng/mL (75 - 250 nmol/L) Toxicity >100 ng/mL (>250 nmol/L) Serum or plasma albumin caterina urement (mass/volume)Ordered By: Dr. Byrd on 06-30-2022 Albumin [Mass/Vol] 4.0 g/dL 3.2-5.0 [facility] Serum or plasma albumin/glob ulin mass ratioOrdered By: Dr. Byrd on 06-30-2022 Albumin/Globulin [Mass ratio] 1.1 {ratio} 0.9-2.4 [facility] Serum or plasma calcium caterina urement (mass/volume)Ordered By: Dr. Byrd on 06-30-2022 Calcium [Mass/Vol] 9.2 mg/dL 8.5-10.1 [facility] Serum or plasma creatinine m easurement (mass/volume)Ordered By: Dr. Byrd on 06-30-2022 Creatinine [Mass/Vol] 1.10 mg/dL 0.70-1.30 [facility] Comment on above: The validity of the calculated GFR & GFRAA in patients over 70 years has not been determined. Clinical correlation is essential. Serum or plasma urea nitroge n measurement (mass/volume)Ordered By: Dr. Byrd on 06-30-2022 Urea nitrogen [Mass/Vol] 15 mg/dL 7-18 [facility] Thin prep Papanicolaou smear with manual screeningOrdered By: Dr. Byrd on 06-30-2022 Thin prep Papanicolaou smear with manual screening 57 U/L 15-37 [facility] Thin prep Papanicolaou smear with manual screening 5 5-15 [facility] Thin prep Papanicolaou smear with manual screening 8.8 mg/L NO RANGE EST. [facility] Urine creatinine measurement (mass/volume)Ordered By: Dr. Byrd on 06-30-2022 Creatinine (U) [Mass/Vol] 110.00 mg/dL NO RANGE EST. [facility] Basophil percentageon 2021 Bilirubin [Mass/Vol] 0.80 mg/dL 0.20-1.00 [facility] Work Phone: Comment on above: For patients on eltr ombopag therapy, use of Dimension [place] TBIL is not recommended. Chloride [Moles/Vol] 106 mmol/L 98-107 [facility] Work Phone: Cholesterol [Mass/Vol] 186 mg/dL <200 [facility] Work Phone: Comment on above: <200 mg/dL Desirable 200-240 mg/dL Borderline >240 mg/dL High Risk Glucose [Mass/Vol] 98 mg/dL 74-106 [facility] Work Phone: Potassium [Moles/Vol] 3.7 mmol/L 3.5-5.1 [facility] Work Phone: Protein [Mass/Vol] 7.9 g/dL 6.4-8.2 [facility] Work Phone: Sodium [Moles/Vol] 139 mmol/L 136-145 [facility] Work Phone: Triglyceride [Mass/Vol] 49 mg/dL <199 [facility] Work Phone: Comment on above: The drugs N-Acetylcy steine and Metamizole may falsely depress this assay.Serum Triglycerides Reference Interval Normal <150 mg/dL Borderline high 150 - 199 mg/dL High 200 - 499 mg/dL Very High > or = 500 mg/dL Laboratory - Chemistry and C hemistry - challengeon 12-29-2021 ALP [Catalytic activity/Vol] 81 U/L 45-117 [facility] Work Phone: ALT [Catalytic activity/Vol] 36 U/L 16-61 [facility] Work Phone: CO2 [Moles/Vol] 25.0 mmol/L 21.0-32.0 [facility] Work Phone: Globulin (S) [Mass/Vol] 3.8 g/dL 2.2-4.2 [facility] Work Phone: Urea nitrogen/Creatinine [Mass ratio] 9.5 mg/mg 10-20 [facility] Work Phone: No Panel Informationon 12-29 Estimated GFR (MDRD) Amer 82 mL/min >60 [facility] Work Phone: Comment on above: GFR Calc Estimated GFR (MDRD) Non-Af Amer 68 mL/min >60 [facility] Work Phone: Comment on above: Non- GFR Calc Urine Microalbumin/Creatinine Ratio TNP [facility] Work Phone: Comment on above: Test not performed Serum or plasma albumin caterina urement (mass/volume)on 12-29-2021 Albumin [Mass/Vol] 4.1 g/dL 3.2-5.0 [facility] Work Phone: Serum or plasma albumin/glob ulin mass ratioon 12-29-2021 Albumin/Globulin [Mass ratio] 1.1 {ratio} 0.9-2.4 [facility] Work Phone: Serum or plasma calcium caterina urement (mass/volume)on 12-29-2021 Calcium [Mass/Vol] 9.3 mg/dL 8.5-10.1 [facility] Work Phone: Serum or plasma cholesterol in HDL measurement (mass/volume)on 12-29-2021 Cholesterol in HDL [Mass/Vol] 61 mg/dL >40 [facility] Work Phone: Comment on above: The drugs N-Acetylcy steine and Metamizole may falsely depress this assay. Reference Range HDL <40 mg/dL Low HDL Cholesterol HDL >or= 60 mg/dL High HDL Cholesterol Serum or plasma cholesterol in VLDL measurement (mass/volume)on 12-29-2021 Cholesterol in VLDL [Mass/Vol] 10 mg/dL 5-40 [facility] Work Phone: Serum or plasma creatinine m easurement (mass/volume)on 12-29-2021 Creatinine [Mass/Vol] 1.16 mg/dL 0.70-1.30 [facility] Work Phone: Comment on above: The validity of the calculated GFR & GFRAA in patients over 70 years has not been determined. Clinical correlation is essential. Serum or plasma low density lipoprotein (LDL) cholesterol measurement (mass/volume)on 12-29-2021 Cholesterol in LDL [Mass/Vol] 115 mg/dL 0-130 [facility] Work Phone: Serum or plasma urea nitroge n measurement (mass/volume)on 12-29-2021 Urea nitrogen [Mass/Vol] 11 mg/dL 7-18 [facility] Work Phone: [phone] Thin prep Papanicolaou smear with manual screeningon 12-29-2021 Thin prep Papanicolaou smear with manual screening 55 U/L 15-37 [facility] Work Phone: Thin prep Papanicolaou smear with manual screening 8 5-15 [facility] Work Phone: Thin prep Papanicolaou smear with manual screening < 5.0 mg/L NO RANGE EST. [facility] Work Phone: Urine creatinine measurement (mass/volume)on 12-29-2021 Creatinine (U) [Mass/Vol] 21.50 mg/dL NO RANGE EST. [facility] Work Phone: Encounters Encounter Date Encounter Type Care Provider Facility Start: 09-27-2024 End: 09-27-[address] Kashif Byrd MD Work Phone: -Laboratory Start: 09-27-2024 End: 09-27-[address] Shayan Carver DO -Laboratory Work Phone: Start: 09-27-2024 End: 09-27-2024 ambulatory Shayan Carver Facility:[facility] Start: 04-20-2024 End: 04-20-2024 ambulatory Shayan Carver Facility:[facility] Start: 04-17-2024 End: 04-17-2024 ambulatory Kashif Byrd Facility:[facility] Start: 03-25-2024 End: 03-25-2024 Emergency department patient visit Noel Harrison Facility:[facility] Start: 03-10-2024 End: 03-10-2024 ambulatory Kashif Byrd Facility:[facility] Start: 03-02-2024 End: 03-02-2024 ambulatory Arnulfo MOODY Facility:[facility] Start: 01-17-2024 End: 01-17-2024 ambulatory Shayanjw Carver Facility:[facility] Start: 07-09-2023 End: 07-09-2023 ambulatory [facility] Work Phone: Start: 07-09-2023 End: 07-09-2023 Patient encounter procedure [facility] Start: 05-12-2023 End: 05-12-2023 Patient encounter procedure [facility]-Laboratory Work Phone: Start: 01-04-2023 End: 01-04-2023 ambulatory [facility] Work Phone: Start: 01-04-2023 End: 01-04-2023 Patient encounter procedure [facility] - [facility] Work Phone: Start: 12-16-2022 End: 12-16-2022 Patient encounter procedure [facility]-Laboratory Work Phone: Start: 12-01-2022 End: 12-01-[address] Kashif Byrd Work Phone: [facility] Work Phone: Start: 12-01-2022 End: 12-01-[address] [facility] Start: 11-27-2022 End: 11-27-[address] Kashif Byrd Work Phone: [facility] Work Phone: Start: 11-05-2022 End: 11-05-[address] Kashif Byrd Work Phone: [facility] Work Phone: Start: 11-05-2022 End: 11-05-[address] Kashif Byrd Work Phone: [facility] Work Phone: Start: 11-03-2022 End: 11-03-[address] Kashif Byrd Work Phone: [facility] Work Phone: Start: 11-03-2022 End: 11-03-[address] Kashif Byrd Work Phone: [facility] Work Phone: Start: 10-10-2022 End: 10-10-[address] Kashif Byrd Work Phone: [facility] Work Phone: Start: 10-10-2022 End: 10-10-[address] [facility] Start: 09-01-2022 End: 09-01-[address] Kashif Byrd Work Phone: [facility] Work Phone: Start: 09-01-2022 End: 09-01-[address] Kashif Byrd Work Phone: [facility] - [facility] Start: 08-10-2022 Non-patient / Non-visit Dr. Roni Byrd Work Phone: [facility] Start: 08-10-2022 End: 08-10-[address] Kashif Byrd Work Phone: [facility] Work Phone: Start: 08-10-2022 End: 08-10-[address] Kashif Byrd Work Phone: [facility] Start: 07-31-2022 End: 07-31-[address] Kashif Byrd Work Phone: [facility]-Laboratory, [facility] Start: 06-30-2022 End: 06-30-2022 ambulatory [facility] Work Phone: Start: 06-30-2022 End: 06-30-2022 [facility] Start: 12-29-2021 End: 12-29-2021 ambulatory [facility] Work Phone: Start: 12-29-2021 End: 12-29-2021 [facility] Procedures Date Procedure Procedure Detail Performing Clinician Start: 09-27-2024 Vitamin D, 25-hydrox y measurement Dr. Kashif Byrd MD Work Phone: Comment on above: Vitamin D StatusDefi ciency: <20 ng/mL (50nmol/L)Insufficiency: 20-30 ng/mL (50-75 nmol/L)Sufficiency: 30-100 ng/mL (75-250 nmol/L)Toxicity: >100 ng/mL (>250 nmol/L) Start: 01-04-2023 MRI of brain with contrast Start: 09-01-2022 MRI of abdomen with contrast Dr. Kashif Byrd Work Phone: Plan of Treatment Date Care Activity Detail Author Start: 11-27-2022 Procedure [facility] Cortisol Free [Mass/ volume] in 24 hour Urine [facility] Cortisol Free [Mass/ volume] in Urine [facility] Payers Date Payer Category Payer Unknown [id number] 2024 Self-pay [id number] 2024 Unknown [id number] 2014 Private Health Insurance [id number] Unknown NAZIA [id number] Unknown [id number] 2.16.8 [id number] Unknown [id number] 2.16.8 [id number] Unknown [id number] 2.16.8 [id number] Unknown [id number] 2.16.8 [id number] Unknown [id number] 2.16.8 [id number] Unknown [id number] 2.16.8 [id number] Unknown [id number] 2.16.8 [id number] Unknown [id number] 2.16.8 [id number] Social History Date Type Detail Facility Start: 11-04-[address] [facility] Unknown if ever smoked [facility] Start: 11-17-2019 None [facility] Start: 11-17-2019 With Family [facility] Start: 1960 Sex Assigned At Male [facility] Start: 03-25-[address] [facility] Never smoked tobacco (finding) [facility] Medical Equipment Procedure Code Equipment Code Equipment Origin al Text Equipment Identifier Dates Repair, hernia, ventral, with mesh insertion MESH,VENTLEX ST SM 4.3CM FDA Start: 02-16-2018 Repair, hernia, ventral, with mesh insertion MESH,VENTLEX ST SM 4.3CM FDA Start: 02-16-2018 Repair, hernia, ventral, with mesh insertion MESH,VENTLEX ST SM 4.3CM FDA Start: 02-16-2018 Repair, hernia, ventral, with mesh insertion MESH,VENTLEX ST SM 4.3CM FDA Start: 02-16-2018 Repair, hernia, ventral, with mesh insertion MESH,VENTLEX ST SM 4.3CM FDA Start: 02-16-2018 Repair, hernia, ventral, with mesh insertion MESH,VENTLEX ST SM 4.3CM FDA Start: 02-16-2018 Repair, hernia, ventral, with mesh insertion MESH,VENTLEX ST SM 4.3CM FDA Start: 02-16-2018 Repair, hernia, ventral, with mesh insertion MESH,VENTLEX ST SM 4.3CM FDA Start: 02-16-2018 Repair, hernia, ventral, with mesh insertion MESH,VENTLEX ST SM 4.3CM FDA Start: 02-16-2018 Repair, hernia, ventral, with mesh insertion MESH,VENTLEX ST SM 4.3CM FDA Start: 02-16-2018 Repair, hernia, ventral, with mesh insertion MESH,VENTLEX ST SM 4.3CM FDA Start: 02-16-2018 Evaluation note Note Date & Type Note Facility Evaluation note No assessment information availa ble [facility] Work Phone: Reason for referral (narrative) Note Date & Type Note Facility Reason for referral (narrative) No reason for referral information available [facility] Work Phone: Advance Directives No Advanced Directives Records Found Advance Directive Response Recorded Date/ Time Advance Directives Yes January 2:51pm Living Will Yes November 04 1 1:03pm Power of Commodity Broker Yes November 04, 2 021 1:03pm Advance Directive Response Recorded Date/ Time Advance Directives Yes January 2:51pm Chief Complaint and Reason for Visit Chief Complaint 24 HOUR URINE CARDIOMEGALY Chief Complaint 24 HOUR URINE CARDIOMEGALY 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 24 HOUR URINE CARDIOMEGALY 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 Chief Complaint CARDIOMEGALY 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 LABSPEC Chief Complaint DROP OFF LABSPEC LABSPEC ELIAZAR'S DISEASE Summary Purpose Family History No Family History Records Found Additional Source Comments Goals (unrecognized section and content) Goals may be documented in a n alternate sectionGoals may be documented in an alternate sectionGoals may be documented in an alternate sectionGoals may be documented in an alternate sectionGoals may be documented in an alternate sectionGoals may be documented in an alternate sectionGoals may be documented in an alternate sectionGoals may be documented in an alternate sectionGoals may be documented in an alternate sectionGoals may be documented in an alternate sectionGoals may be documented in an alternate section Care Teams (unrecognized sec tion and content) Team Status: Active Member Role Status Dates Dr. Kashif Byrd MD Family Provider Active Kashif SANTIAGO MD Primary Care Provider Active Team Status: Inactive Member Role Status Dates Kashif SANTIAGO MD Primary Care Provider Active Dr. Kashif Byrd MD Attending Provider, Referring Prov ider Active Team Status: Active Member Role Status Dates Dr. Kashif Byrd MD Family Provider Active Dr. Kashif Byrd MD Primary Care Provider Active Team Status: Active Member Role Status Dates Dr. Kashif Byrd MD Primary Care Provider Active Dr. Anshul Mendoza MD Attending Provider Active Team Status: Inactive Member Role Status Dates Dr. Kashif Byrd MD Primary Care Provide r, Attending Provider, Referring Provider Active Team Status: Inactive Member Role Status Dates Dr. Kashif Byrd MD Primary Care Provider Active FRANSISCO DHILLON Attending Provider, Referring Prov ider Active Team Status: Active Member Role Status Dates Dr. Kashif Byrd MD Primary Care Provider Active FRANSISCO DHILLON Attending Provider, Referring Prov ider Active Team Status: Inactive Member Role Status Dates Dr. Kashif Byrd MD Primary Care Provider Active QUEENIE LUCIANO Attending Provider, Referring Provide r Active Team Status: Inactive Member Role Status Dates Dr. Kashif Byrd MD Primary Care Provider Active Dr. Shayan Carver DO Attending Provider, Referring Provider Active Team Status: Inactive Member Role Status Dates Dr. Kashif Byrd MD Primary Care Provider, Attending Rin falk Active Team Status: Active Member Role/Relationship Status Dates Dr. Kashif Byrd MD Primary Care Provider Active Team Status: Inactive Member Role/Relationship Status Dates Dr. Kashif Byrd MD Primary Care Provider Active Start: September 27, 2024 End: September 27, 2024 Dr. Shayan Carver DO Attending Provider Active Start: September 27, 2024 End: September 27, 2024 Dr. Shayan Carver DO Referring Provider Active Start: September 27, 2024 End: September 27, 2024 (unrecognized sect ion and content) No Status Records Found INFORMATION SOURCE (unrecogn ized section and content) DATE CREATED AUTHOR 10/07/2024 [facility] FOR RECORDS PERTAINING TO PATIENTS WHO ARE OR HAVE BEEN ENROLLED IN A CHEMICAL DEPENDENCY/SUBSTANCEABUSE PROGRAM, SOME INFORMATION MAY BE OMITTED. This clinical summary was aggregated from multiple sources. Caution should be exercised in using it in the provision of clinical care. This summary normalizes information from multiple sources, and as a consequence, information in this document may materially change the coding, format and clinical context of patient data. In addition, data may be omitted in some cases. CLINICAL DECISIONS SHOULD BE BASED ON THE PRIMARY CLINICAL RECORDS. [employer] [facility]. provides no warranty or guarantee of the accuracy or completeness of information in this document.
[2025-03-21 08:46] LABS: CORTISOL AM 0.91 ug/dL (6.02-18.40)
== END | disposition home or self-care (01) ==
PROVIDERS: PCP Family Medicine; Referring Provider Internal Medicine Endocrinology, Diabetes & Metabolism; Visit Provider Internal Medicine Endocrinology, Diabetes & Metabolism
DX: E24.0 Pituitary-dependent Cushing's disease (principal)
CPT/HCPCS: 36415; 82533